=== PATIENT | male | born 1950 | race Caucasian/White ===

== ENCOUNTER 2020-06-08 08:11 | Outpatient (CLI) | payer MEDICARE, SELFPAY ==
[2020-06-08 08:46] LABS: Alanine Aminotransferase 20 U/L (4-50); Albumin Level 3.6 g/dL (3.5-5.1); Alkaline Phosphatase 85 U/L (38-126); Aspartate Amino Transferase 21 U/L (17-59); Bilirubin,Total 0.5 mg/dL (0.2-1.3); Blood Urea Nitrogen 19 mg/dL (9-20); Calcium 8.3 mg/dL (8.4-10.2); Carbon Dioxide 25 mmol/L (22-30); Chloride 104 mmol/L (98-107); Cholesterol 118 mg/dL (0-200); Estimated Glomerular Filt Rate > 60; Glucose 95 mg/dL (75-110); HDL Direct 34 mg/dL; Potassium 4.2 mmol/L (3.4-5.0); Sodium 137 mmol/L (137-145); Triglycerides 69 mg/dL (<150)
[2020-06-08 08:57] LABS: LDL Cholesterol Direct 60 mg/dL
== END 2020-06-08 08:12 | disposition home or self-care (01) ==
PROVIDERS: PCP Emergency Medicine; Visit Provider Emergency Medicine
DX: E78.5 Hyperlipidemia, unspecified (principal)
CPT/HCPCS: 36415; 80053; 80061

== ENCOUNTER 2020-11-06 07:45 | Outpatient (CLI) | payer MEDICARE, SELFPAY ==
[2020-11-06 08:33] LABS: Alanine Aminotransferase 21 U/L (4-50); Albumin Level 3.6 g/dL (3.5-5.1); Alkaline Phosphatase 78 U/L (38-126); Anion Gap 4 mmol/L (8-16); Aspartate Amino Transferase 21 U/L (17-59); Bilirubin,Total 0.4 mg/dL (0.2-1.3); Blood Urea Nitrogen 21 mg/dL (9-20); Calcium 8.7 mg/dL (8.4-10.2); Carbon Dioxide 30 mmol/L (22-30); Chloride 104 mmol/L (98-107); Cholesterol 120 mg/dL (0-200); Estimated Glomerular Filt Rate > 60; Glucose 97 mg/dL (75-110); HDL Direct 39 mg/dL; Potassium 4.2 mmol/L (3.4-5.0); Sodium 138 mmol/L (137-145); Triglycerides 57 mg/dL (<150)
[2020-11-06 08:44] LABS: LDL Cholesterol Direct 66 mg/dL
[2020-11-06 09:03] LABS: Prostate Specific Antigen 2.1 ng/mL (< OR = 4.0)
== END 2020-11-06 07:46 | disposition home or self-care (01) ==
PROVIDERS: PCP Emergency Medicine; Visit Provider Emergency Medicine
DX: E78.5 Hyperlipidemia, unspecified (principal); Z12.5 Encounter for screening for malignant neoplasm of prostate
CPT/HCPCS: 36415; 80053; 80061; 84153; G0103

== ENCOUNTER 2021-04-08 07:15 | Outpatient (CLI) | payer MEDICARE, SELFPAY ==
[2021-04-08 08:16] LABS: Alanine Aminotransferase 22 U/L (4-50); Albumin Level 3.7 g/dL (3.5-5.1); Alkaline Phosphatase 89 U/L (38-126); Anion Gap 5 mmol/L (8-16); Aspartate Amino Transferase 24 U/L (17-59); Bilirubin,Total 0.5 mg/dL (0.2-1.3); Blood Urea Nitrogen 19 mg/dL (9-20); Calcium 8.9 mg/dL (8.4-10.2); Carbon Dioxide 27 mmol/L (22-30); Chloride 105 mmol/L (98-107); Cholesterol 123 mg/dL (0-200); Estimated Glomerular Filt Rate 59; Glucose 89 mg/dL (75-110); HDL Direct 43 mg/dL; Potassium 3.8 mmol/L (3.4-5.0); Sodium 137 mmol/L (137-145); Triglycerides 67 mg/dL (<150)
[2021-04-08 08:26] LABS: LDL Cholesterol Direct 63 mg/dL
== END 2021-04-08 07:16 | disposition home or self-care (01) ==
LOC: ANHLAB 07:18
PROVIDERS: PCP Emergency Medicine; Visit Provider Emergency Medicine
DX: E78.5 Hyperlipidemia, unspecified (principal)
CPT/HCPCS: 36415; 80053; 80061

== ENCOUNTER 2021-08-18 08:19 | Outpatient (CLI) | payer MEDICARE, SELFPAY ==
[2021-08-18 09:18] LABS: Alanine Aminotransferase 21 U/L (4-50); Albumin Level 4.1 g/dL (3.5-5.1); Alkaline Phosphatase 100 U/L (38-126); Anion Gap 7 mmol/L (8-16); Aspartate Amino Transferase 22 U/L (17-59); Bilirubin,Total 0.6 mg/dL (0.2-1.3); Blood Urea Nitrogen 24 mg/dL (9-20); Carbon Dioxide 24 mmol/L (22-30); Chloride 105 mmol/L (98-107); Cholesterol 131 mg/dL (0-200); Estimated Glomerular Filt Rate > 60; Glucose 94 mg/dL (65-110); HDL Direct 44 mg/dL; Potassium 4.1 mmol/L (3.4-5.0); Sodium 136 mmol/L (137-145); Triglycerides 61 mg/dL (<150)
[2021-08-18 09:20] LABS: LDL Cholesterol Direct 71 mg/dL
[2021-08-18 09:35] LABS: Prostate Specific Antigen 1.9 ng/mL (< OR = 4.0)
== END 2021-08-18 08:20 | disposition home or self-care (01) ==
PROVIDERS: PCP Emergency Medicine; Visit Provider Emergency Medicine
DX: Z12.5 Encounter for screening for malignant neoplasm of prostate (principal); E78.5 Hyperlipidemia, unspecified
CPT/HCPCS: 36415; 80053; 80061; 84153; G0103

== ENCOUNTER 2021-08-26 11:22 | Outpatient (CLI) | payer MEDICARE, SELFPAY | END 2021-08-26 11:23 | disposition home or self-care (01) | PROVIDERS: PCP Emergency Medicine; Visit Provider Emergency Medicine | DX: R53.83 Other fatigue (principal) | CPT/HCPCS: 36415; 84443 ==

== ENCOUNTER 2021-09-29 18:48 | Emergency (ER) | payer MEDICARE, SELFPAY ==
[2021-09-29] VITALS (8 sets, daily range): BP systolic 109–165; BP diastolic 76–94; PULSE 122–142; RESP 20–25; TEMP 37.6; O2SAT 93–98
--- NOTE | ~2021-09-29 | XR_ITS ---
EXAMINATION: XR chest 1V portable EXAM DATE: 09/29/2021 19:39 INDICATION: SOB, Fever, Cough, HX TIA, HX IA. TECHNIQUE: Portable AP frontal chest x-ray was obtained. Comparison is made to prior examination from 10/22/2018. FINDINGS: The lungs are clear. There are no pleural effusions. The cardiomediastinal silhouette is within normal limits. There is no pneumothorax suspected. The bones and soft tissues are unremarkab le. IMPRESSION: No acute cardiopulmonary findings. Reviewed, dictated and finalized at location A. R OPERATOR
--- NOTE | ~2021-09-29 | CT_ITS ---
EXAMINATION: CTA chest PE protocol EXAM DATE: 09/29/2021 21:50 INDICATION: high d dimer and shortness of breath. TECHNIQUE: Spiral CTA of the chest (pulmonary arteries) was performed with 100 cc Omnipaque 350 intr avenous contrast injection. Images were acquired during the pulmonary arterial phase. Coronal maxi mum intensity projection 3D-reconstructions were created by the technologist on dedicated workstation . Axial, coronal and sagittal reformatted images were reviewed. The dose-length product (DLP) for t his examination was 792.45 mGy-cm. The exposure was tailored according to patient size (auto mA exp osure control), and iterative reconstruction (ASIR) was used as additional dose reduction technique. Comparison is made to prior examination from 10/01/2018. FINDINGS: There are no pulmonary emboli in the 1st through 3rd order (central and interlobar) pulmon bert arteries. Some loss of attenuation in the basilar segmental pulmonary from respiratory motion, t hese regions not confidently evaluated. No Intraluminal filling defects identified. No thoracic aor tic dissection. Previously seen scattered nodules have resolved, likely infectious. Small amount of left upper lobe groundglass airspace disease, nonspecific pneumonitis. There is moderate sliding carlos roesophageal hiatal hernia. There are no pleural or pericardial effusions. Tracheobronchial tree i s patent. There is no mediastinal, hilar or axillary lymphadenopathy. There is no pneumothorax. Heart normal in size. Possible left anterior descending coronary artery stent versus calcification . There is thoracic spondylosis without osteoblastic or osteolytic lesions identified. IMPRESSION: 1. Limited segmental evaluation, but no pulmonary emboli are suspected. 2. Small amount of nonspecific left upper lobe groundglass opacity, pneumonitis. 3. Moderate gastroesophageal hiatal hernia. Reviewed, dictated and finalized at location A. EL CUTTER IMPRESSION: 1. Limited segmental evaluation, but no pulmonary emboli are suspected. 2. Small amount of nonspecific left upper lobe groundglass opacity, pneumoniti s. 3. Moderate gastroesophageal hiatal hernia.
--- NOTE | 2021-09-29 19:04 | ECG_ITS ---
Measurements Intervals [place] Rate: 133 P: 38 MS: 149 QRS: 94 QRSD: 135 T: 0 QT: 307 QTc: 457 Interpretive Statements SINUS TACHYCARDIA RIGHT BUNDLE BRANCH BLOCK MINIMAL Q WAVES- INFERIOR LEADS BASELINE ARTIFACT- I, II, III AVR, AVF, V1-V6 ABNORMAL ECG Electronically Signed On 09-29-2021 20:15:42 POLICY CANCELLATION CLERK by Efraín Reese D.O.
[2021-09-29 19:52] LABS: Basophils Absolute Auto 0.1 K/mm3 (0.0-0.1); Basophils Percent Auto 0.7 % (0.2-1.2); Eosinophils Absolute Auto 0.2 K/mm3 (0-0.3); Eosinophils Percent Auto 2.1 % (0-4.4); Hematocrit 37.6 % (42.0-52.0); Hemoglobin 11.4 g/dL (14.0-18.0); Immature Granulocyte Absolute 0.03 K/mm3 (0.00-0.031); Immature Granulocyte Percent A 0.4 % (0-0.5); Immature Platelet Fraction Pct 7.1 % (0.9-11.2); Lymphocytes Absolute Auto 1.18 K/mm3 (0.9-3.2); Lymphocytes Percent Auto 13.8 % (18.3-44.2); Mean Corpuscular HGB Conc 30.3 g/dl (32-36); Mean Corpuscular Hemoglobin 21.8 pg (26-34); Mean Corpuscular Volume 71.8 fl (80-100); Mean Platelet Volume 11.5 fl (7.4-10.4); Monocytes Absolute Auto 0.9 K/mm3 (0.1-0.6); Monocytes Percent Auto 10.4 % (2.6-8.5); Neutrophils Absolute Auto 6.2 K/mm3 (1.3-6.7); Neutrophils Percent Auto 72.6 % (45.5-73.1); Platelet Count Result 227 k/mm3 (150-375); Red Blood Count 5.24 M/mm3 (4.6-6.20); Red Cell Distribution Width 18.2 % (11.5-14.5); White Blood Count 8.5 K/mm3 (4.5-10.0)
--- NOTE | 2021-09-29 19:58 | PC.NURSE ---
Pt placed on 2L O2 NC for pt comfort. O2 sat 96% at this time.
[2021-09-29 20:02] LABS: D Dimer 0.85 ug/mL (<0.48)
[2021-09-29 20:20] LABS: NT Pro B Type Natriuretic Pept 178 pg/mL (5-100)
[2021-09-29 20:26] LABS: Alanine Aminotransferase 28 U/L (4-50); Albumin Level 3.9 g/dL (3.5-5.1); Alkaline Phosphatase 99 U/L (38-126); Anion Gap 11 mmol/L (8-16); Aspartate Amino Transferase 39 U/L (17-59); Bilirubin,Total 0.4 mg/dL (0.2-1.3); Blood Urea Nitrogen 21 mg/dL (9-20); Calcium 8.2 mg/dL (8.4-10.2); Carbon Dioxide 20 mmol/L (22-30); Chloride 102 mmol/L (98-107); Estimated CRCL calculation 50 ml/min; Estimated Glomerular Filt Rate 59; Glucose 104 mg/dL (65-110); Sodium 133 mmol/L (137-145)
[2021-09-29] MEDS: methylPREDNISolone SOD SUCC 125 MG VIAL IV PUSH (21:07)
--- NOTE | 2021-09-29 21:08 | PC.NURSE ---
Pt taken off of O2 at this time.
--- NOTE | 2021-09-29 22:23 | ED.SOB ---
HPI - SOB/Dyspnea General Chief Complaint: Shortness of Breath/Dyspnea Stated Complaint: SOB Time Seen by Provider: 09/29/21 19:03 Source: patient Mode of arrival: ambulatory Limitations: no limitations History of Present Illness HPI Narrative: 71-year-old with a history of asthma, Crohn's here with complaints of cough shortness of breath since last few days. He states that he is scheduled to get a Covid screen done tomorrow but he states that he was unable to wait till tomorrow. He denies any fever he states he has been using his inhalers as prescribed. Cough is mostly productive at times and it is mucoid in nature. He denies any nausea or vomiting. Patient states that it started with a head cold and now it is going into his lungs MD elicited complaint: shortness of breath and cough Pertinent past history: asthma Onset (ago): day(s) (2) Timing: constant Severity: moderate Exacerbating factors: nothing Relieving factors: nothing Known history of: asthma Associated symptoms: sputum production (Mucoid) and chest congestion Related Data Home oxygen amount: none Home Medications Medication Instructions Recorded Confirmed atorvastatin 40 mg PO DAILY 10/05/19 08/25/21 metoprolol succinate 100 mg PO DAILY 10/05/19 08/25/21 cholecalciferol (vitamin D3) 25 1,000 unit PO DAILY tablet 06/09/20 08/25/21 mcg (1,000 unit) tablet nitroglycerin 0.4 mg sublingual 0.4 mg SUBLINGUAL Q5M PRN 04/21/21 08/25/21 tablet Allergies Allergy/AdvReac Type Severity Reaction Status Date / Time Sulfa (Sulfonamide Allergy Mild Hives Verified 08/25/21 13:33 Antibiotics) azathioprine Allergy Unknown Unknown Verified 08/25/21 13:33 sulfanilamide Allergy Unknown Unknown Verified 08/25/21 13:33 Review of Systems Review of Systems: All systems reviewed & are unremarkable except as noted in HPI and below Constitutional: Constitutional: Reports no additional constitutional complaints Eyes: Eyes: Reports no additional eye complaints ENT: Reports system reviewed and no additional complaints, except as documented Cardiovascular: Cardiovascular: Reports no additional cardiovascular complaints Respiratory: Respiratory: Reports as per HPI Gastrointestinal: Gastrointestinal: Reports no additional gastrointestinal complaints Musculoskeletal: Musculoskeletal: Reports no additional musculoskeletal complaints Integumentary/Breasts: Skin/Breast: Reports system reviewed and no additional complaints, except as docu Neurologic: Reports system reviewed and no additional complaints, except as documented Psychiatric: Psychiatric: Reports no additional psychiatric complaints PMFSH Past Medical History Medical History (Updated 09/29/21 @ 22:40 by Paco Galdamez MD) Epistaxis Hypercholesterolemia Kidney stones Myocardial infarction Sinusitis TIA (transient ischemic attack) Ulcerative colitis Surgical History Surgical History History of heart artery stent Family History Family History Mother Hypertension DVT (deep venous thrombosis) Father Hypertension Heart disease Social History Social History Smoking status: Never smoker Alcohol intake: never Gender identity (if verbalized by the patient): Male Exam Narrative: GENERAL: Well-appearing, well-nourished, and in no acute distress. HEAD: Normocephalic, atraumatic. EYES: PERRLA and EOMI. NECK: Supple. CHEST: Clear to auscultation. No respiratory distress. HEART: tachycardic . No murmur heard. Normal peripheral pulses. ABDOMEN: Soft, nontender, nondistended, normal active bowel sounds. EXTREMITIES: Normal range of motion. No edema. SKIN: Warm, dry, no rash. NEURO: No focal deficits. Alert and oriented x3. PSYCH: Normal mood and affect. Course Course Emergency Course: Inform patient about his lab work, CT.
[2021-09-29] MEDS: levoFLOXacin 500 MG TABLET PO (22:57)
[2021-09-29] MEDS: METOPROLOL TARTRATE 50 MG TAB PO (22:57)
[2021-09-30 00:20] VITALS: BP 108/69; PULSE 101; RESP 20; O2SAT 93
[2021-09-30 17:50] LABS: SARS-CoV-2 RNA PCR Positive
== END 2021-09-30 00:22 | disposition home or self-care (01) ==
PROVIDERS: Emergency Provider Family Medicine; PCP Emergency Medicine
DX: U07.1 COVID-19 (principal); J12.82 Pneumonia due to coronavirus disease 2019; E78.5 Hyperlipidemia, unspecified; I25.2 Old myocardial infarction
CPT/HCPCS: 36415; 71045; 71275; 80053; 83880; 85025; 85055; 85380; 87040; 93005; 96374; 99284; A9270; C9803; J2930; Q9967; U0003; U0005

== ENCOUNTER 2021-10-08 03:40 | Inpatient (IN) | payer MEDICARE, SELFPAY ==
[2021-10-08] VITALS (38 sets, daily range): BP systolic 127–159; BP diastolic 60–90; PULSE 66–120; RESP 18–34; TEMP 36.3–37.3; O2SAT 91–100; BMI 33.3
--- NOTE | ~2021-10-08 | CT_ITS ---
EXAMINATION: CTA chest PE protocol DATE: 10/08/2021 04:55 INDICATION: Hypoxia. Tachycardia. TECHNIQUE: Computed tomography angiography (CTA) of the chest was performed with 100 mL Omnipaque-350 intravenous contrast timed to evaluate the pulmonary arteries. Coronal maximum intensity projection 3D-reconstructions were created by the technologist. Automated exposure control and iterative reconst ruction technique were employed. Exam dose: 683.99 mGy-cm total exam DLP. COMPARISON: 09/29/2021 CT pulmonary scan FINDINGS: There is diagnostic contrast enhancement of the pulmonary arteries and no evidence of pulmo nary embolism. No thoracic aortic aneurysm or dissection. No hilar or mediastinal mass lesion or lymphadenopathy. Moderate sliding hiatal hernia. Heart size is within normal limits. No pericardial or pleural effusion. There is extensive patchy groundglass infiltrate throughout all lobes of both lungs, likely due to Co vid pneumonia. Included upper abdominal structures are unremarkable. Chronic ununited fracture of the posterolateral aspect of the right eighth rib. Degenerative spurring of the thoracic spine. No suspicious osteolytic or osteoblastic lesions. IMPRESSION: Extensive patchy groundglass infiltrates throughout both lungs, likely due to Covid pneu monia No evidence of pulmonary embolism Moderate-sized hiatal hernia Reviewed, dictated and finalized at Location [facility]. Reviewed, dictated and finalized at location A. LE TENDER IMPRESSION: Extensive patchy groundglass infiltrates throughout both lungs, li clyde due to Covid pneumonia No evidence of pulmonary embolism Moderate-sized hiatal hernia
--- NOTE | ~2021-10-08 | CT_ITS ---
EXAMINATION: CTA chest PE protocol EXAM DATE: 10/12/2021 11:23 INDICATION: Chest pain. COVID pneumonia. Right lower chest pain. Hypoxia. D-dimer elevated. TECHNIQUE: Spiral CTA of the chest (pulmonary arteries) was performed with 100 cc Omnipaque 350 intr avenous contrast injection. Images were acquired during the pulmonary arterial phase. Coronal maxi mum intensity projection 3D-reconstructions were created by the technologist on dedicated workstation . Axial, coronal and sagittal reformatted images were reviewed. The dose-length product (DLP) for t his examination was 488.48 mGy-cm. The exposure was tailored according to patient size (auto mA exp osure control), and iterative reconstruction (ASIR) was used as additional dose reduction technique. Comparison is made to prior examination from 10/08/2021. FINDINGS: Interval development of right lower lobe posterior segmental pulmonary embolism. No larger emboli. Low clot burden. No thoracic aortic dissection. There is similar distribution of moderate amount bilateral groundglass airspace disease, with develop ing small regions of associated linear scarring/atelectasis. These findings are consistent with trans ition from acute to early subacute stage of COVID pneumonia. There are no pleural or pericardial effusions. Tracheobronchial tree is patent. There is no media stinal, hilar or axillary lymphadenopathy. There is no pneumothorax. Heart normal in size. Prob able left anterior descending coronary artery stent. There is moderate sliding gastroesophageal hiata l hernia. There is thoracic spondylosis without osteoblastic or osteolytic lesions identified. IMPRESSION: 1. Interval development of segmental right lower lobe pulmonary embolism, low clot burden. 2. Moderate amount of COVID pneumonia, scope of lung involvement stable. 3. Moderate hiatal hernia. I discussed pulmonary embolism, pneumonia with Mehran Carlson MD at 10/12/2021 11:49 CONTROL VALVE MECHANIC. Reviewed, dictated and finalized at location A. ROL VALVE MECHANIC IMPRESSION: 1. Interval development of segmental right lower lobe pulmonary embolism, low clot burden. 2. Moderate amount of COVID pneumonia, scope of lung involvement stable. 3. Moderate hiatal hernia. I discussed pulmonary embolism, pneumonia with Mehran Carlson MD at 021 11:49 CONTROL VALVE MECHANIC.
--- NOTE | ~2021-10-08 | US_ITS ---
EXAMINATION: US venous doppler [facility] DATE: 10/11/2021 15:08 INDICATION: Chest pain. TECHNIQUE: Grayscale ultrasound images without and with compression and Doppler ultrasound images of the bilateral lower extremity veins were obtained. COMPARISON: None. FINDINGS: The visualized portions of right common femoral vein, profunda (deep) femoral vein, femoral vein, pop liteal vein, peroneal veins, posterior tibial veins, and greater saphenous vein outflow are patent. T here is thrombus in right soleus vein. The visualized portions of left common femoral vein, profunda femoral vein, femoral vein, popliteal v ein, peroneal veins, posterior tibial veins, and greater saphenous vein outflow are patent. IMPRESSION: 1. Deep vein thrombosis involving right soleus vein. Reviewed, dictated and finalized at location B. EN TANK FILLER
--- NOTE | ~2021-10-08 | XR_ITS ---
EXAMINATION: XR chest 1V portable EXAM DATE: 10/11/2021 09:46 INDICATION: Pneumonia COVID, worsening cough and chest pain. TECHNIQUE: Portable AP frontal chest x-ray was obtained. Comparison is made to prior examination from 09/29/2021. FINDINGS: There is moderate amount of bilateral peripheral predominant airspace disease which is ill- defined, but with small regions of confluence. Appearance is consistent with subacute COVID pneumonia . There is no pneumothorax suspected. There are no pleural effusions. The cardiomediastinal silhouett e is prominent but magnified on this AP technique. There are mild bony degenerative changes. IMPRESSION: Moderate amount of COVID pneumonia. Reviewed, dictated and finalized at location A. [employer]
--- NOTE | 2021-10-08 03:50 | ECG_ITS ---
Measurements Intervals [place] Rate: 117 P: [place]: 0 QRS: 91 QRSD: 141 T: -3 QT: 350 QTc: 489 Interpretive Statements SINUS TACHYCARDIA RIGHT BUNDLE BRANCH BLOCK MINIMAL Q WAVES- INFERIOR LEADS ABNORMAL ECG Electronically Signed On 10-08-2021 6:26:20 LARD MAKER by Efraín Reese D.O.
--- NOTE | 2021-10-08 03:53 | ED.SOB ---
HPI - SOB/Dyspnea General Chief Complaint: Shortness of Breath/Dyspnea Stated Complaint: SOB, Covid + Time Seen by Provider: 10/08/21 03:44 Source: patient History of Present Illness HPI Narrative: Patient presents with shortness of breath. Reports he was recently diagnosed with Covid approximately 1 week ago. He has had persistent cough and shortness of breath is felt worse this evening so he came to the ER for evaluation. Reports fevers diffuse body aches. Reports he is coughing up sputum. He also reports nausea and vomiting. Reports he was sent home on antibiotics but they do not appear to be helping. Related Data Home Medications Medication Instructions Recorded Confirmed atorvastatin 40 mg PO DAILY 10/05/19 08/25/21 metoprolol succinate 100 mg PO DAILY 10/05/19 08/25/21 cholecalciferol (vitamin D3) 25 1,000 unit PO DAILY tablet 06/09/20 08/25/21 mcg (1,000 unit) tablet nitroglycerin 0.4 mg sublingual 0.4 mg SUBLINGUAL Q5M PRN 04/21/21 08/25/21 tablet Allergies Allergy/AdvReac Type Severity Reaction Status Date / Time Sulfa (Sulfonamide Allergy Mild Hives Verified 08/25/21 13:33 Antibiotics) azathioprine Allergy Unknown Unknown Verified 08/25/21 13:33 sulfanilamide Allergy Unknown Unknown Verified 08/25/21 13:33 Review of Systems Review of Systems: CONSTITUTIONAL: Reports fevers and chills EYES: Denies visual changes, redness, or discharge. ENT: Denies rhinorrhea, congestion, sore throat, or otalgia. CARDIOVASCULAR: Denies chest pain, palpitations, or edema. RESPIRATORY: Reports shortness of breath and cough. GASTROINTESTINAL: Denies abdominal pain,or diarrhea. GENITOURINARY: Denies dysuria or hematuria. SKIN: Denies rash or itching. MUSCULOSKELETAL: Denies back pain, joint pain. NEUROLOGIC: Denies headache, numbness, dizziness, or weakness. PSYCHIATRIC: Denies anxiety or depression. All systems reviewed & are unremarkable except as noted in HPI and below PMFSH Past Medical History Medical History (Updated 10/08/21 @ 05:54 by Nick Lewis MD) Epistaxis Hypercholesterolemia Kidney stones Myocardial infarction Sinusitis TIA (transient ischemic attack) Ulcerative colitis Surgical History Surgical History History of heart artery stent Family History Family History Mother Hypertension DVT (deep venous thrombosis) Father Hypertension Heart disease Social History Social History Smoking status: Never smoker Alcohol intake: never Gender identity (if verbalized by the patient): Male Exam Narrative: GENERAL: Well-appearing, well-nourished, and in no acute distress. HEAD: Normocephalic, atraumatic. EYES: PERRLA and EOMI. ENT: Nares clear, no rhinorrhea or epistaxis. Mucous membranes moist. NECK: Supple. No masses. No JVD CHEST: Clear to auscultation. No respiratory distress. No wheezes rales or rhonchi HEART: Regular regular tachycardia. No murmur heard. Normal peripheral pulses. ABDOMEN: Soft, nontender, nondistended, normal active bowel sounds. EXTREMITIES: Normal range of motion. No edema. SKIN: Warm, dry, no rash. NEURO: No focal deficits. Alert and oriented x3. PSYCH: Normal mood and affect. Course Reevaluation(s) Reevaluation #1: Patient resting comfortably on [address] scan returned with Covid pneumonia labs notable for hyponatremia patient be admitted for further management Date: 10/08/21 Time: 05:51 Vital Signs Vital signs: Vital Signs Temperature 37.3 C 10/08/21 03:43 Pulse Rate 120 H 10/08/21 03:43 Respiratory Rate 27 H 10/08/21 03:43 Blood Pressure 148/77 H 10/08/21 03:43 Pulse Oximetry 96 10/08/21 03:43 Temperature 37.3 C 10/08/21 03:43 Pulse Rate 109 H 10/08/21 06:31 Respiratory Rate 25 H 10/08/21 06:31 Blood Pressure 143/87 H 10/08/21 06:31 Pulse O
[2021-10-08] MEDS: SODIUM CHLORIDE 0.9% IV 1,000 ML 999 ML IV CONT (04:05)
[2021-10-08 04:15] LABS: Lactic Acid Reflex 1.9 mmol/L (0.7-2.1)
[2021-10-08 04:27] LABS: Basophils Percent Auto 0.1 % (0.2-1.2); Eosinophils Percent Auto 0.1 % (0-4.4); Hematocrit 37.5 % (42.0-52.0); Hemoglobin 12.1 g/dL (14.0-18.0); Immature Granulocyte Absolute 0.03 K/mm3 (0.00-0.031); Immature Granulocyte Percent A 0.3 % (0-0.5); Immature Platelet Fraction Pct 10.1 % (0.9-11.2); Lymphocytes Absolute Auto 0.92 K/mm3 (0.9-3.2); Lymphocytes Percent Auto 9.7 % (18.3-44.2); Mean Corpuscular HGB Conc 32.3 g/dl (32-36); Mean Corpuscular Volume 68.1 fl (80-100); Monocytes Absolute Auto 0.1 K/mm3 (0.1-0.6); Monocytes Percent Auto 1.1 % (2.6-8.5); Neutrophils Absolute Auto 8.4 K/mm3 (1.3-6.7); Neutrophils Percent Auto 88.7 % (45.5-73.1); Platelet Count Result 231 k/mm3 (150-375); Red Blood Count 5.51 M/mm3 (4.6-6.20); Red Cell Distribution Width 18.2 % (11.5-14.5); White Blood Count 9.5 K/mm3 (4.5-10.0)
[2021-10-08 04:38] LABS: Alanine Aminotransferase 59 U/L (4-50); Albumin Level 3.3 g/dL (3.5-5.1); Alkaline Phosphatase 107 U/L (38-126); Anion Gap 10 mmol/L (8-16); Aspartate Amino Transferase 121 U/L (17-59); Blood Urea Nitrogen 12 mg/dL (9-20); Calcium 8.1 mg/dL (8.4-10.2); Carbon Dioxide 24 mmol/L (22-30); Chloride 85 mmol/L (98-107); Estimated CRCL calculation 53 ml/min; Estimated Glomerular Filt Rate > 60; Glucose 101 mg/dL (65-110); Potassium 3.7 mmol/L (3.4-5.0); Sodium 119 mmol/L (137-145)
[2021-10-08 04:49] LABS: Platelet Estimate Adequate (Adequate)
[2021-10-08 04:50] LABS: Microcytosis 1+ (NORMAL); Ovalocytes 1+ (NORMAL)
[2021-10-08 05:36] LABS: Add Urine Microscopic? YES; Appearance Urine Clear (Clear); Bilirubin Urine Negative (Negative); Blood Urine 1+ (Negative); Color Urine Yellow (Yellow); Glucose Urine UA Negative (Negative); Ketones Urine 1+ mg/dL (Negative); Leukocyte Esterase Ur Negative LEU/UL (Negative); Nitrate Urine Negative (Negative); Protein Urine 1+ mg/dL (Negative); RBC Urine 0-2 /hpf (0-2); Specific Grav Ur 1.029 (1.001-1.035); Urobilinogen Urine Negative mg/dL (<2.0); WBC Urine 0-3 /hpf
[2021-10-08 05:51] LABS: Sodium Urine Random 10 meq/L
[2021-10-08] MEDS: REMDESIVIR 200 MG/NS 250 ML 200 MG/250 ML BAG 250 MG IVPB (07:02)
[2021-10-08] MEDS: ONDANSETRON INJ 4 MG/2 ML VIAL IV PUSH ×2 (07:06→21:25)
--- NOTE | 2021-10-08 07:15 | PC.NURSE ---
Previous RN called report and has transport taking pt up after shift change, vitals were updated, pt has no acute distress at this time
--- NOTE | 2021-10-08 08:00 | ADMGEN ---
This patient, Arvind Pruett, was admitted to [facility] S[facility] Room 319-01 at 0750. Patient/family oriented to hospital policies and general routines including ID bracelet, bed and alarms, visiting hours, pain management, procedures, bathroom and other care routines, personal items, smoking policy, room service/diet, and visiting hours. Information on how to activate the Rapid Response Team has been discussed. Patient/Family are encouraged to report perceived risks to care and to ask questions if they do not understand what they are told or what they should do.
[2021-10-08 09:16] LABS: Sodium 124 mmol/L (137-145)
[2021-10-08 09:27] LABS: Alanine Aminotransferase 54 U/L (4-50); Albumin Level 3.1 g/dL (3.5-5.1); Alkaline Phosphatase 89 U/L (38-126); Anion Gap 8 mmol/L (8-16); Aspartate Amino Transferase 98 U/L (17-59); Bilirubin,Total 0.9 mg/dL (0.2-1.3); Blood Urea Nitrogen 11 mg/dL (9-20); Calcium 7.3 mg/dL (8.4-10.2); Carbon Dioxide 22 mmol/L (22-30); Chloride 89 mmol/L (98-107); Estimated CRCL calculation 64 ml/min; Estimated Glomerular Filt Rate > 60; Glucose 106 mg/dL (65-110); Potassium 3.6 mmol/L (3.4-5.0); Sodium 119 mmol/L (137-145)
--- NOTE | 2021-10-08 11:37 | ECG_ITS ---
Measurements Intervals [place] Rate: 89 P: 21 PA: 173 QRS: 48 QRSD: 147 T: 25 QT: 395 QTc: 483 Interpretive Statements SINUS RHYTHM RIGHT BUNDLE BRANCH BLOCK BASELINE ARTIFACT- I, III, AVR, AVL, AVF ABNORMAL ECG Electronically Signed On 10-08-2021 13:06:19 BIOMASS POWER PLANT MANAGER by Efraín Reese D.O.
--- NOTE | 2021-10-08 11:48 | PM.IMHP ---
H&P: HPI History of Present Illness Date/Time: 10/08/21 11:48 Chief Complaint: 10/08/21 Narrative: 71yo male with Asthma, CAD, ulcerative colitis on immunosuppressive agents and TIA here for worsening SOB from COVID PNA. Patient is unvaccinated. He is 'foggy' and having 'trouble remembering' since becoming ill with COVID. He is AOx4 but hx is difficult to obtain with limited details. Patient presented to the emergency room on 09/29/2021 with a 2 day history of cough and shortness of breath. Chest CTA showed no pulmonary emboli but did show small amount of nonspecific ground-glass opacities possibly pneumonitis. He was treated with Levaquin x 7 days. His rapid COVID swab returned positive. Patient was discharged home. He completed the antibiotics. His condition however continued to worsen. He denies any sore throat or chills but has been having subjective fevers, myalgias, nausea and vomiting. He is also having cough productive of thick yellowish sputum. No anosmia and dysgeusia. He has been diffusely weak to the point where he is unable to leave his house to refill his medications. He ran out of his medications about a week ago. He has had poor oral intake over the past week as well. He does have ulcerative colitis and takes Humira for this. He denies any diarrhea, melena, hematochezia or abdominal pain. Currently he is complaining of ?acid indigestion? they describes as a burning sensation and an acid taste in his mouth. He takes Prilosec daily but has been out of that medication for the past week. This pain feels different than the chest discomfort he had a few years ago when he had his myocardial infarction. Because of the worsening symptoms, patient presented to the emergency room for evaluation. In the emergency room, patient was hemodynamics stable. He was tachycardic with rate of 120. He has been out of his beta-dinh for a week. CTA of the chest shows extensive patchy ground-glass infiltrates throughout both lungs but no evidence of PE. He has a moderate size hiatal hernia. Hemoglobin was 12 but does have chronic microcytic anemia. D-dimer was elevated 0.85. Sodium was 119 with AST 121 ALT 59. Urinalysis shows 1+ ketones with urine sodium of 10. Patient was given Decadron, remdesivir and IV fluids. He was admitted for further care. Review of Systems Review of Systems: All systems reviewed & are unremarkable except as noted in HPI and below PMFSH Past Medical History Medical History (Updated 10/08/21 @ 12:12 by Mehran Carlson MD) Asthma CAD (coronary artery disease) stent placed in Oct 2018 to the prox LAD GERD (gastroesophageal reflux disease) HTN (hypertension) Hypercholesterolemia Kidney stones Myocardial infarction TIA (transient ischemic attack) Ulcerative colitis Surgical History Surgical History History of heart artery stent Hx of sinus surgery Family History Family History Mother Hypertension DVT (deep venous thrombosis) Father Hypertension Heart disease Social History Social History (Updated 10/08/21 @ 12:08 by Mehran Carlson MD) Social History: Lives alone. . No children. Denies alcohol or drug use. He is a lifelong nonsmoker. He is a full code. He nominated Batsheva Paz to be the individual would be making decisions for him if he is unable. Smoking status: Never smoker Alcohol intake: never Substance use: never Gender identity (if verbalized by the patient): Male Spiritual care concerns: No Meds Home Medications and Allergies Home Medications Medication Instructions Recorded Confirmed Type atorvastatin 40 mg PO DAILY 10/05/19 10/08/21 History metoprolol succinate 100 mg PO DAILY 10/05/19 10/08/21 History fluticasone propionate 50 See Rx Instructions .ROUTE 12/14/20 10/08/21 Rx mcg/actuation nasal .COMPLEX #48 ml spray,suspens
[2021-10-08] MEDS: CALCIUM CARBONATE (TUMS) 500 MG (200 MG ELEMENTAL) PO (12:20)
[2021-10-08 13:20] LABS: Sodium 120 mmol/L (137-145)
[2021-10-08 13:31] LABS: Lactate Dehydrogenase 1552 U/L (313-618)
[2021-10-08 13:34] LABS: Troponin I < 0.012 ng/mL (0.000-0.034)
[2021-10-08 13:36] LABS: Iron < 10 ug/dL (49-181)
[2021-10-08 13:41] LABS: D Dimer 0.19 ug/mL (<0.48)
[2021-10-08 13:47] LABS: Percent Iron Saturation < 4 % (20-50)
[2021-10-08 13:52] LABS: CRP 18.3 mg/dL (<1.0)
[2021-10-08 14:09] LABS: Thyroid Stimulating Hormone Reflex 0.785 uIU/mL (0.465-4.68)
[2021-10-08] MEDS: ENOXAPARIN 40 MG/0.4 ML SYRINGE SUB-Q (16:02)
[2021-10-08] MEDS: PANTOPRAZOLE SODIUM IV 40 MG VIAL IV PUSH ×2 (16:02→21:21)
[2021-10-08] MEDS: METOPROLOL SUCCINATE EXT REL 100 MG TABCR PO (16:03)
[2021-10-08 17:19] LABS: Sodium 124 mmol/L (137-145)
[2021-10-08] MEDS: FLUTICASONE PROPIONATE 0.05% NA SPR 16 GM BTL (*BKC) 2 SPRAY NASAL (19:00)
[2021-10-08] MEDS: SODIUM CHLORIDE 0.9% IV 1,000 ML 100 ML IV CONT (19:00)
[2021-10-08] MEDS: FLUTICASONE/SALMETEROL 115-21 MCG (*SP) INHALER 2 PUFF INHALATION (20:43)
[2021-10-08] MEDS: ALBUTEROL SULFATE (*SP) INHALER 2 PUFF INHALATION (20:43)
[2021-10-08 21:11] LABS: Sodium 122 mmol/L (137-145)
[2021-10-08 22:13] LABS: Anion Gap 10 mmol/L (8-16); Blood Urea Nitrogen 13 mg/dL (9-20); Carbon Dioxide 22 mmol/L (22-30); Chloride 92 mmol/L (98-107); Estimated CRCL calculation 64 ml/min; Estimated Glomerular Filt Rate > 60; Glucose 172 mg/dL (65-110); Potassium 3.8 mmol/L (3.4-5.0); Sodium 124 mmol/L (137-145)
[2021-10-09] VITALS (13 sets, daily range): BP systolic 120–142; BP diastolic 69–92; PULSE 83–97; RESP 18–24; TEMP 36.4–37; O2SAT 92–98
[2021-10-09] MEDS: SODIUM CHLORIDE 0.9% IV 250 ML 30 ML IV CONT (00:45)
[2021-10-09 01:16] LABS: Sodium 123 mmol/L (137-145)
[2021-10-09] MEDS: ALBUTEROL SULFATE (*SP) INHALER 2 PUFF INHALATION ×4 (01:50→19:59)
[2021-10-09 07:51] LABS: Basophils Percent Auto 0.1 % (0.2-1.2); Hematocrit 32.4 % (42.0-52.0); Hemoglobin 10.3 g/dL (14.0-18.0); Immature Granulocyte Absolute 0.06 K/mm3 (0.00-0.031); Immature Granulocyte Percent A 0.6 % (0-0.5); Immature Platelet Fraction Pct 7.9 % (0.9-11.2); Lymphocytes Absolute Auto 0.38 K/mm3 (0.9-3.2); Lymphocytes Percent Auto 3.6 % (18.3-44.2); Mean Corpuscular HGB Conc 31.8 g/dl (32-36); Mean Corpuscular Hemoglobin 21.7 pg (26-34); Mean Corpuscular Volume 68.4 fl (80-100); Monocytes Absolute Auto 0.1 K/mm3 (0.1-0.6); Neutrophils Absolute Auto 9.9 K/mm3 (1.3-6.7); Neutrophils Percent Auto 94.7 % (45.5-73.1); Platelet Count Result 211 k/mm3 (150-375); Red Blood Count 4.74 M/mm3 (4.6-6.20); Red Cell Distribution Width 17.4 % (11.5-14.5); White Blood Count 10.4 K/mm3 (4.5-10.0)
[2021-10-09 07:58] LABS: INR 1.1; Prothrombin Time 14.1 Seconds (11.1-14.7)
[2021-10-09 08:08] LABS: Alanine Aminotransferase 54 U/L (4-50); Alkaline Phosphatase 89 U/L (38-126); Anion Gap 4 mmol/L (8-16); Aspartate Amino Transferase 76 U/L (17-59); Bilirubin,Total 0.6 mg/dL (0.2-1.3); Blood Urea Nitrogen 15 mg/dL (9-20); Calcium 7.8 mg/dL (8.4-10.2); Carbon Dioxide 24 mmol/L (22-30); Chloride 97 mmol/L (98-107); Estimated CRCL calculation 64 ml/min; Estimated Glomerular Filt Rate > 60; Glucose 133 mg/dL (65-110); Lactate Dehydrogenase 1372 U/L (313-618); Magnesium 2.2 mg/dL (1.6-2.3); Phosphorus 2.9 mg/dL (2.5-4.5); Potassium 3.4 mmol/L (3.4-5.0); Sodium 125 mmol/L (137-145)
[2021-10-09] MEDS: METOPROLOL SUCCINATE EXT REL 100 MG TABCR PO (08:27)
[2021-10-09] MEDS: ASPIRIN 81 MG CHEWABLE TABLET PO (08:27)
[2021-10-09 08:32] LABS: Cortisol Baseline 4.08 ug/dL
[2021-10-09] MEDS: FLUTICASONE/SALMETEROL 115-21 MCG (*SP) INHALER 2 PUFF INHALATION ×2 (08:53→19:59)
[2021-10-09 09:46] LABS: Platelet Estimate Adequate (Adequate)
[2021-10-09 09:47] LABS: Burr Cells 2+ (NORMAL); Ovalocytes 1+ (NORMAL)
[2021-10-09 09:48] LABS: Poikilocytosis 1+ (NORMAL)
--- NOTE | 2021-10-09 09:50 | PM.IMPN ---
Progress Note: A&P Assessment and Plan (1) Acute respiratory failure with hypoxia: Code(s): J96.01 - Acute respiratory failure with hypoxia Status: Acute Assessment and Plan: Patient admitted with increasing shortness of breath cough after recently being diagnosed with COVID pneumonia on 09/29/2021. Patient is about 12 days out from the start of his symptoms. CTA of the chest reviewed showing diffuse lung disease consistent with COVID pneumonia. Oxygen requirement has increased since admission. Continue supportive care. Treatment as below. Wean oxygen as tolerated. Resume albuterol HFA but will schedule this. (2) Pneumonia due to COVID-19 virus: Code(s): U07.1 - COVID-19; J12.82 - Pneumonia due to coronavirus disease 2019 Status: Acute Assessment and Plan: Patient has been admitted to the medical unit. Oxygen requirement is increasing. Remdesivir and dexamethasone were appropriately started. Given his immunosuppressive condition, there is some data is to suggest that there is improvement with convalescent plasma. Spoke with patient about the risks and benefits and he is agreeable to proceed and as such convalescent plasma was ordered. Ferritin was 197. C reactive protein was 18. We will consult pulmonary in consideration for Tocilizumab. Wean oxygen as tolerated. Continue supportive care. (3) Hyponatremia: Code(s): E87.1 - Hypo-osmolality and hyponatremia Status: Acute Assessment and Plan: Plasma sodium 119 on admission. Serum sodium is improving slowly up to 125 today. Urine sodium 10 with FENA at 0.07%. This suggests dehydration from his nausea and vomiting and poor oral intake. Urine ketones are elevated which goes along with this diagnosis. Despite this would consider hypernatremia related to his current lung disease. He received a 1L of fluid in the ER. Will track urine sodium for now and not intervene at this time. Avoid over correction to prevent demyelinating disease. His ?foggy? mentation may be related to the hyponatremia although he is oriented x4. Continue close observation of sodium and treat accordingly. We may need to give him does more present and/or free water if his sodium over corrects too quickly. TSH and cortisol level are within acceptable range. (4) HTN (hypertension): Qualifiers: Hypertension type: unspecified Qualified Code(s): I10 - Essential (primary) hypertension Code(s): I10 - Essential (primary) hypertension Status: Acute Assessment and Plan: Blood pressure reviewed as well controlled since he has been hospitalized. On today's date, BP has been 127/75-142/83. Continue metoprolol which should help his tachycardia. Continue to monitor. (5) GERD (gastroesophageal reflux disease): Code(s): K21.9 - Gastro-esophageal reflux disease without esophagitis Status: Acute Assessment and Plan: Patient reports classic acid reflux symtoms. There was no substantial clinical improvement despite protonix scheduled and Tums p.r.n.THere is no troponin elevation; EKG is unremarkable. We will add carafate to his GI regimen. (6) Asthma: Code(s): J45.909 - Unspecified asthma, uncomplicated Status: Acute Assessment and Plan: No wheezing. Continue albuterol HFA scheduled. (7) CAD (coronary artery disease): Code(s): I25.10 - Atherosclerotic heart disease of [place] coronary artery without angina pectoris Status: Acute Assessment and Plan: Patient has history of coronary disease. Will resume his metoprolol and aspirin. Will hold his Lipitor given the mildly elevated LFTs but suspect this will come down. Elevated liver enzymes related to the COVID pneumonia. (8) Ulcerative colitis: Code(s): K51.90 - Ulcerative colitis, unspecified, without complications Status: Acute Assessment and Plan: Patient has a history of ulcerative colitis on
[2021-10-09] MEDS: ENOXAPARIN 40 MG/0.4 ML SYRINGE SUB-Q (10:07)
[2021-10-09] MEDS: FLUTICASONE PROPIONATE 0.05% NA SPR 16 GM BTL (*BKC) 2 SPRAY NASAL (10:07)
[2021-10-09] MEDS: guaiFENesin/DEXTROMETHORPHAN 10 ML UDC PO ×2 (10:07→14:03)
[2021-10-09] MEDS: REMDESIVIR 100 MG/NS 250 ML 100 MG/250 ML BAG 250 MG IVPB (11:28)
[2021-10-09] MEDS: PANTOPRAZOLE SODIUM IV 40 MG VIAL IV PUSH ×2 (11:50→21:36)
[2021-10-09] MEDS: SUCRALFATE SUSP 100 MG/ML 10 ML UDC 1000 MG PO ×2 (15:22→21:36)
[2021-10-10] VITALS (12 sets, daily range): BP systolic 123–155; BP diastolic 73–90; PULSE 81–107; RESP 18–24; TEMP 36.3–36.9; O2SAT 93–96
[2021-10-10] MEDS: guaiFENesin/DEXTROMETHORPHAN 10 ML UDC PO ×2 (00:44→12:54)
--- NOTE | 2021-10-10 04:15 | PCRCNOTE ---
RT not available due to emergency to administer 02:00 albuterol inhaler to pt.
[2021-10-10] MEDS: SUCRALFATE SUSP 100 MG/ML 10 ML UDC 1000 MG PO ×4 (06:32→20:52)
[2021-10-10 07:01] LABS: INR 1.1; Prothrombin Time 13.6 Seconds (11.1-14.7)
[2021-10-10 07:19] LABS: Alanine Aminotransferase 54 U/L (4-50); Estimated CRCL calculation 64 ml/min; Estimated Glomerular Filt Rate > 60
[2021-10-10] MEDS: ENOXAPARIN 40 MG/0.4 ML SYRINGE SUB-Q (08:14)
[2021-10-10] MEDS: PANTOPRAZOLE SODIUM IV 40 MG VIAL IV PUSH ×2 (08:15→20:52)
[2021-10-10] MEDS: METOPROLOL SUCCINATE EXT REL 100 MG TABCR PO (08:15)
[2021-10-10] MEDS: ASPIRIN 81 MG CHEWABLE TABLET PO (08:15)
[2021-10-10] MEDS: FLUTICASONE PROPIONATE 0.05% NA SPR 16 GM BTL (*BKC) 2 SPRAY NASAL ×2 (08:15→20:52)
[2021-10-10] MEDS: FERROUS GLUCONATE 324 MG TABLET PO (08:16)
[2021-10-10] MEDS: ALBUTEROL SULFATE (*SP) INHALER 2 PUFF INHALATION ×3 (08:22→21:36)
[2021-10-10] MEDS: FLUTICASONE/SALMETEROL 115-21 MCG (*SP) INHALER 2 PUFF INHALATION ×2 (10:04→21:36)
[2021-10-10] MEDS: REMDESIVIR 100 MG/NS 250 ML 100 MG/250 ML BAG 250 MG IVPB (10:04)
--- NOTE | 2021-10-10 11:30 | PM.IMPN ---
Progress Note: A&P Assessment and Plan (1) Acute respiratory failure with hypoxia: Code(s): J96.01 - Acute respiratory failure with hypoxia Status: Acute Assessment and Plan: Patient admitted with increasing shortness of breath cough after recently being diagnosed with COVID pneumonia on 09/29/2021. Patient remains on 4 L, but looks a little better as his cough is improving. Oral intake is improving after symptomatic relief of GERD symptoms with carafate. Patient is about 13 days out from the start of his symptoms. CTA of the chest reviewed showing diffuse lung disease consistent with COVID pneumonia. Oxygen requirement has increased since admission. Continue supportive care. Treatment as below. Wean oxygen as tolerated. Continue albuterol HFA. (2) Pneumonia due to COVID-19 virus: Code(s): U07.1 - COVID-19; J12.82 - Pneumonia due to coronavirus disease 2019 Status: Acute Assessment and Plan: Patient has been admitted to the medical unit. Oxygen requirement is increasing, now plateaued at 4 L. Remdesivir and dexamethasone were appropriately started. Given his immunosuppressive condition, there is some data is to suggest that there is improvement with convalescent plasma. Spoke with patient about the risks and benefits and he is agreeable to proceed and as such convalescent plasma was ordered. Ferritin was 197. C reactive protein was 18. We will consult pulmonary in consideration for Tocilizumab. Wean oxygen as tolerated. Continue supportive care. (3) Hyponatremia: Code(s): E87.1 - Hypo-osmolality and hyponatremia Status: Acute Assessment and Plan: Plasma sodium 119 on admission. Serum sodium is improving slowly up to 131 today. Urine sodium 10 with FENA at 0.07%. This suggests dehydration from his nausea and vomiting and poor oral intake. Urine ketones are elevated which goes along with this diagnosis. Despite this would consider hypernatremia related to his current lung disease. He received a 1L of fluid in the ER. Will track urine sodium for now and not intervene at this time. Patient mentation has improved back to baseline. Continue close observation of sodium and treat accordingly. TSH and cortisol level are within acceptable range. (4) HTN (hypertension): Qualifiers: Hypertension type: unspecified Qualified Code(s): I10 - Essential (primary) hypertension Code(s): I10 - Essential (primary) hypertension Status: Acute Assessment and Plan: Blood pressure reviewed as well controlled since he has been hospitalized. On today's date, BP has been in the 123/77-149/79 range. Continue metoprolol which should help his tachycardia. Continue to monitor. (5) GERD (gastroesophageal reflux disease): Code(s): K21.9 - Gastro-esophageal reflux disease without esophagitis Status: Acute Assessment and Plan: Patient reports classic acid reflux symtoms. There was no substantial clinical improvement despite protonix scheduled and Tums p.r.n.THere is no troponin elevation; EKG is unremarkable. Patient has improved symptomatically after the addition of Carafate to his GI regimen. (6) Asthma: Code(s): J45.909 - Unspecified asthma, uncomplicated Status: Acute Assessment and Plan: No wheezing. Continue albuterol HFA scheduled. (7) CAD (coronary artery disease): Code(s): I25.10 - Atherosclerotic heart disease of [place] coronary artery without angina pectoris Status: Acute Assessment and Plan: Patient has history of coronary disease. Will resume his metoprolol and aspirin. Will hold his Lipitor given the mildly elevated LFTs but suspect this will come down. Elevated liver enzymes related to the COVID pneumonia. (8) Ulcerative colitis: Code(s): K51.90 - Ulcerative colitis, unspecified, without complications Status: Acute Assessment and Plan: Patient has a hi
[2021-10-10] MEDS: BENZONATATE 100 MG CAPSULE 200 MG PO ×2 (12:54→16:49)
[2021-10-10 15:12] LABS: Hematocrit 32.3 % (42.0-52.0); Hemoglobin 10.4 g/dL (14.0-18.0); Mean Corpuscular HGB Conc 32.2 g/dl (32-36); Mean Corpuscular Hemoglobin 21.7 pg (26-34); Mean Corpuscular Volume 67.3 fl (80-100); Mean Platelet Volume 10.9 fl (7.4-10.4); Platelet Count Result 312 k/mm3 (150-375); Red Cell Distribution Width 17.9 % (11.5-14.5)
[2021-10-10 15:28] LABS: Anion Gap 8 mmol/L (8-16); Blood Urea Nitrogen 16 mg/dL (9-20); Calcium 7.9 mg/dL (8.4-10.2); Carbon Dioxide 23 mmol/L (22-30); Chloride 100 mmol/L (98-107); Estimated CRCL calculation 64 ml/min; Estimated Glomerular Filt Rate > 60; Glucose 151 mg/dL (65-110); Potassium 3.7 mmol/L (3.4-5.0); Sodium 131 mmol/L (137-145)
[2021-10-10 15:49] LABS: Burr Cells 3+ (NORMAL); Platelet Estimate Adequate (Adequate)
[2021-10-10 15:50] LABS: Acanthocytes 2+ (NORMAL); Ovalocytes 3+ (NORMAL)
[2021-10-10 15:51] LABS: Anisocytosis 3+ (NORMAL); Poikilocytosis 3+ (NORMAL)
[2021-10-10] MEDS: MELATONIN 3 MG TABLET PO (20:52)
[2021-10-11] VITALS (11 sets, daily range): BP systolic 137–165; BP diastolic 80–94; PULSE 80–110; RESP 18–24; TEMP 36.2–36.6; O2SAT 92–96
[2021-10-11] MEDS: ALBUTEROL SULFATE (*SP) INHALER 2 PUFF INHALATION ×4 (02:32→20:16)
[2021-10-11] MEDS: guaiFENesin/DEXTROMETHORPHAN 10 ML UDC PO (04:50)
[2021-10-11 06:03] LABS: Hematocrit 32.1 % (42.0-52.0); Hemoglobin 10.2 g/dL (14.0-18.0); Immature Granulocyte Absolute 0.04 K/mm3 (0.00-0.031); Immature Granulocyte Percent A 0.4 % (0-0.5); Lymphocytes Absolute Auto 0.32 K/mm3 (0.9-3.2); Lymphocytes Percent Auto 3.1 % (18.3-44.2); Mean Corpuscular HGB Conc 31.8 g/dl (32-36); Mean Corpuscular Volume 69.2 fl (80-100); Mean Platelet Volume 10.8 fl (7.4-10.4); Monocytes Absolute Auto 0.2 K/mm3 (0.1-0.6); Neutrophils Absolute Auto 9.6 K/mm3 (1.3-6.7); Neutrophils Percent Auto 94.5 % (45.5-73.1); Platelet Count Result 276 k/mm3 (150-375); Red Blood Count 4.64 M/mm3 (4.6-6.20); Red Cell Distribution Width 17.8 % (11.5-14.5); White Blood Count 10.2 K/mm3 (4.5-10.0)
[2021-10-11 06:12] LABS: INR 1.1; Prothrombin Time 14.4 Seconds (11.1-14.7)
[2021-10-11 06:14] LABS: Alanine Aminotransferase 54 U/L (4-50); Anion Gap 6 mmol/L (8-16); Blood Urea Nitrogen 17 mg/dL (9-20); Calcium 8.2 mg/dL (8.4-10.2); Carbon Dioxide 25 mmol/L (22-30); Chloride 100 mmol/L (98-107); Estimated CRCL calculation 64 ml/min; Estimated Glomerular Filt Rate > 60; Glucose 127 mg/dL (65-110); Potassium 3.5 mmol/L (3.4-5.0); Sodium 131 mmol/L (137-145)
[2021-10-11] MEDS: SUCRALFATE SUSP 100 MG/ML 10 ML UDC 1000 MG PO ×4 (06:54→21:23)
[2021-10-11 07:27] LABS: Burr Cells 2+ (NORMAL); Ovalocytes 1+ (NORMAL); Platelet Estimate Adequate (Adequate)
[2021-10-11 07:29] LABS: Acanthocytes 1+ (NORMAL); Poikilocytosis 2+ (NORMAL)
[2021-10-11] MEDS: BENZONATATE 100 MG CAPSULE 200 MG PO ×3 (08:33→16:56)
[2021-10-11] MEDS: ENOXAPARIN 40 MG/0.4 ML SYRINGE SUB-Q (08:33)
[2021-10-11] MEDS: METOPROLOL SUCCINATE EXT REL 100 MG TABCR PO (08:33)
[2021-10-11] MEDS: PANTOPRAZOLE SODIUM IV 40 MG VIAL IV PUSH ×2 (08:33→21:22)
[2021-10-11] MEDS: ASPIRIN 81 MG CHEWABLE TABLET PO (08:34)
--- NOTE | 2021-10-11 09:34 | PM.CNPUL ---
Assessment and Plan Assessment and plan (1) Pneumonia due to COVID-19 virus: Code(s): U07.1 - COVID-19; J12.82 - Pneumonia due to coronavirus disease 2019 Status: Acute Assessment and Plan: 71-year-old man with a history of ulcerative colitis, immunocompromised on anti TNF agents, history of asthma, with acute hypoxemic respiratory failure and bilateral ground-glass opacities related to COVID-19 infection. Since admission to the hospital the patient's respiratory status has been stable or slightly improved based on the drop in oxygen flow from 4-5 liters/minute down to 1 liter/minute. Patient has been on remdesivir and dexamethasone IV. There is no evidence of asthma exacerbation while the patient is on maintenance ICS Laba medication and short-acting bronchodilators. Plan: Continue with current regimen for now, repeat CRP D-dimers and portable chest x-ray. Will monitor respiratory status at this point. Continue with current bronchodilators for asthma. (2) Asthma: Qualifiers: Asthma severity: moderate Asthma persistence: unspecified Asthma complication type: uncomplicated Qualified Code(s): J45.909 - Unspecified asthma, uncomplicated Code(s): J45.909 - Unspecified asthma, uncomplicated Status: Acute (3) Acute respiratory failure with hypoxia: Code(s): J96.01 - Acute respiratory failure with hypoxia Status: Acute (4) Ulcerative colitis: Qualifiers: Ulcerative colitis location: unspecified ulcerative colitis location Digestive disease complication type: unspecified complication Qualified Code(s): K51.919 - Ulcerative colitis, unspecified with unspecified complications Code(s): K51.90 - Ulcerative colitis, unspecified, without complications Status: Acute History of Present Illness History of Present Illness Consult date: 10/11/21 Chief complaint: Covid pneumonia Narrative: This 71-year-old man was admitted into the hospital 3 days ago with worsening COVID 19 infection symptoms. The patient has history of asthma, ulcerative colitis chronically on anti TNF agents. He was in his usual state of health until approximately 11 days ago when he presented to the emergency room with cough and shortness of breath. Workup in the emergency room showed faint pulmonary infiltrates and the patient was discharged home with a diagnosis of pneumonitis for which he received an antibiotic for 7 days. Subsequently, the COVID 19 test came back positive. While at home the patient developed more symptoms related to COVID 19 infection such as generalized muscle aches, fever, weakness, cough productive of yellow phlegm, and nausea and vomiting. He had no symptoms related to his chronic ulcerative colitis such as diarrhea hematochezia or abdominal pain. He also denied having wheezing chest pain palpitations or hemoptysis. Workup with chest CT on the day of admission showed extensive ground-glass opacities bilaterally. The patient has been on treatment with remdesivir and dexamethasone IV. Over the last 3 days, the gas exchange has somewhat improved, with oxygen flow now down to 1 liter/minute from a previous level of 4-5 liters/minute. Patient continues to have generalized weakness unable to get out of bed, cough with light yellow sputum production especially at night, but no fever chills or wheezing. His cough has improved somewhat over the last a day. he has had history of asthma for many years for which he has been on Symbicort 160/4.5 inhaler and short-acting bronchodilators. His asthma was reportedly well controlled on current regimen with no previous hospitalizations for asthma exacerbation. Review of Systems Review of Systems: All systems reviewed & are unremarkable except as noted in HPI and below PMFSH Past Medical History Medical History Asthma CAD (coronary artery disease) stent placed in Oct 2018 to the prox LAD
[2021-10-11] MEDS: NITROGLYCERIN SL 0.4 MG TABLET SUBLINGUAL (09:35)
--- NOTE | 2021-10-11 09:43 | ECG_ITS ---
Measurements Intervals [place] Rate: 89 P: 26 TX: 177 QRS: 13 QRSD: 133 T: 9 QT: 371 QTc: 453 Interpretive Statements SINUS RHYTHM RIGHT BUNDLE BRANCH BLOCK CONSIDER INFERIOR INFARCT, AGE INDETERMINATE BASELINE WANDER- I, II ABNORMAL ECG Electronically Signed On 10-11-2021 10:00:42 INCOMING FREIGHT CLERK by Efraín Reese D.O.
[2021-10-11] MEDS: ASPIRIN 81 MG CHEWABLE TABLET 162 MG PO (10:02)
[2021-10-11] MEDS: REMDESIVIR 100 MG/NS 250 ML 100 MG/250 ML BAG 250 MG IVPB (10:02)
--- NOTE | 2021-10-11 10:05 | PM.IMPN ---
Progress Note: A&P Assessment and Plan (1) Left arm pain: Code(s): M79.602 - Pain in left arm Status: Acute Assessment and Plan: Patient has this intermittently and felt to be anginal equivalent. His [employer] is aware but no recent stress test per patient. Stat EKG ordered and reviewed showing no change. NTG given already and symptoms improving. Troponin ordered. ASA given. Continue to trend Troponin. (2) Acute respiratory failure with hypoxia: Code(s): J96.01 - Acute respiratory failure with hypoxia Status: Acute Assessment and Plan: Patient admitted with increasing shortness of breath and cough after recently being diagnosed with COVID pneumonia on 09/29/2021. Cough is improving. Oral intake is improving after symptomatic relief of GERD symptoms with carafate. Patient is about 14 days out from the start of his symptoms. CTA of the chest reviewed showing diffuse lung disease consistent with COVID pneumonia but no PE. Oxygen requirement have improved to 1L. Increase in cough but probably mobilizing secretions. CXR today reviewed showing resolving COVID PNA. Continue supportive care. Treatment as below. Wean oxygen as tolerated. Continue albuterol HFA. (3) Pneumonia due to COVID-19 virus: Code(s): U07.1 - COVID-19; J12.82 - Pneumonia due to coronavirus disease 2018 Status: Acute Assessment and Plan: Patient was admitted to the medical unit. Oxygen requirement increased to 4 L. Remdesivir and dexamethasone were appropriately started. Given his immunosuppressive condition, there is some data is to suggest that there is improvement with convalescent plasma. Spoke with patient about the risks and benefits and he is agreeable to proceed and as such convalescent plasma was given 10/08. Able to wean oxygen to 1L today. Continue supportive care. CRP better at 2.9 but DDimer 14. Has been on Lovenox since admission. Chest CTA negative for PE on 09/29 and 10/08. Negative Homans sign but will check dopplers. (4) Hyponatremia: Code(s): E87.1 - Hypo-osmolality and hyponatremia Status: Acute Assessment and Plan: Plasma sodium 119 on admission. Serum sodium is improving slowly up to 131. Urine sodium 10 with FENA at 0.07%. This suggests dehydration from his nausea and vomiting and poor oral intake. Urine ketones are elevated which goes along with this diagnosis. He received a 1L of fluid in the ER and another 500mL (limiting IV fluids due to COVID PNA). Patient mentation has improved back to baseline. Continue close observation of sodium and treat accordingly. TSH and cortisol level are within acceptable range. (5) HTN (hypertension): Qualifiers: Hypertension type: unspecified Qualified Code(s): I10 - Essential (primary) hypertension Code(s): I10 - Essential (primary) hypertension Status: Acute Assessment and Plan: Patient's blood pressure was reviewed on 10/11 Blood pressure elevated at times. Will continue current medications. Continue to monitor. (6) GERD (gastroesophageal reflux disease): Code(s): K21.9 - Gastro-esophageal reflux disease without esophagitis Status: Acute Assessment and Plan: Patient has been reporting classic acid reflux symptoms but resolved today. Patient has improved symptomatically after the addition of Carafate to his GI regimen. Continue Protonix scheduled and Tums p.r.n. (7) Asthma: Qualifiers: Asthma complication type: uncomplicated Asthma persistence: unspecified Asthma severity: moderate Qualified Code(s): J45.909 - Unspecified asthma, uncomplicated Code(s): J45.909 - Unspecified asthma, uncomplicated Status: Acute Assessment and Plan: No wheezing. Continue albuterol HFA scheduled. (8) CAD (coronary artery disease): Code(s): I25.10 - Atherosclerotic heart disease of [place] coronary artery without angina pectoris
[2021-10-11 10:29] LABS: Troponin I < 0.012 ng/mL (0.000-0.034)
[2021-10-11 10:31] LABS: CRP 2.9 mg/dL (<1.0)
[2021-10-11 10:36] LABS: D Dimer 13.88 ug/mL (<0.48)
[2021-10-11 18:01] LABS: Troponin I 0.061 ng/mL (0.000-0.034)
--- NOTE | 2021-10-11 20:22 | PCRCNOTE ---
Entered Room and found pt on 1L. PT states they do not wear oxygen at home. Titrated O2 off and pt desated down to 90. Turned one liter back on and pt jumped back up to 95. Will try to reasses at a later time.
[2021-10-11] MEDS: APIXABAN 5 MG TABLET 10 MG PO (21:22)
[2021-10-11] MEDS: MELATONIN 3 MG TABLET PO (21:23)
[2021-10-12] VITALS (11 sets, daily range): BP systolic 130–158; BP diastolic 75–89; PULSE 72–104; RESP 18; TEMP 36.3–36.6; O2SAT 91–96
[2021-10-12] MEDS: ALBUTEROL SULFATE (*SP) INHALER 2 PUFF INHALATION ×4 (02:01→21:10)
[2021-10-12] MEDS: SUCRALFATE SUSP 100 MG/ML 10 ML UDC 1000 MG PO ×4 (05:13→23:05)
[2021-10-12 06:56] LABS: INR 1.5; Prothrombin Time 17.8 Seconds (11.1-14.7)
[2021-10-12 06:59] LABS: Alanine Aminotransferase 58 U/L (4-50); Alkaline Phosphatase 77 U/L (38-126); Anion Gap 7 mmol/L (8-16); Aspartate Amino Transferase 58 U/L (17-59); Bilirubin,Total 0.8 mg/dL (0.2-1.3); Blood Urea Nitrogen 18 mg/dL (9-20); Carbon Dioxide 24 mmol/L (22-30); Chloride 97 mmol/L (98-107); Estimated CRCL calculation 64 ml/min; Estimated Glomerular Filt Rate > 60; Glucose 100 mg/dL (65-110); Potassium 3.8 mmol/L (3.4-5.0); Sodium 128 mmol/L (137-145)
[2021-10-12 07:09] LABS: Basophils Percent Auto 0.1 % (0.2-1.2); Hematocrit 34.6 % (42.0-52.0); Hemoglobin 10.8 g/dL (14.0-18.0); Immature Granulocyte Absolute 0.07 K/mm3 (0.00-0.031); Immature Granulocyte Percent A 0.7 % (0-0.5); Lymphocytes Absolute Auto 0.55 K/mm3 (0.9-3.2); Lymphocytes Percent Auto 5.2 % (18.3-44.2); Mean Corpuscular HGB Conc 31.2 g/dl (32-36); Mean Corpuscular Hemoglobin 21.9 pg (26-34); Mean Corpuscular Volume 70.2 fl (80-100); Mean Platelet Volume 10.8 fl (7.4-10.4); Monocytes Absolute Auto 0.3 K/mm3 (0.1-0.6); Neutrophils Absolute Auto 9.5 K/mm3 (1.3-6.7); Platelet Count Result 308 k/mm3 (150-375); Red Blood Count 4.93 M/mm3 (4.6-6.20); Red Cell Distribution Width 18.3 % (11.5-14.5); White Blood Count 10.5 K/mm3 (4.5-10.0)
[2021-10-12 07:09] LABS: Troponin I 0.082 ng/mL (0.000-0.034)
[2021-10-12] MEDS: BENZONATATE 100 MG CAPSULE 200 MG PO ×3 (08:28→17:59)
[2021-10-12] MEDS: ASPIRIN 81 MG CHEWABLE TABLET PO (08:29)
[2021-10-12] MEDS: APIXABAN 5 MG TABLET 10 MG PO ×2 (08:29→23:04)
[2021-10-12] MEDS: PANTOPRAZOLE SODIUM IV 40 MG VIAL IV PUSH ×2 (08:30→23:04)
[2021-10-12] MEDS: METOPROLOL SUCCINATE EXT REL 100 MG TABCR PO (08:30)
--- NOTE | 2021-10-12 08:48 | PM.IMPN ---
Progress Note: A&P Assessment and Plan (1) DVT (deep venous thrombosis): Code(s): I82.409 - Acute embolism and thrombosis of unspecified deep veins of unspecified lower extremity Status: Acute Assessment and Plan: Doppler showing deep vein thrombosis involving right soleus vein. He has been on lovenox since admission so suspect may have been present on admission. Due to the high risk for propagation given that ulcer of colitis inflammatory process and the fact that he has COVID, it was determined that full anticoagulation should be started. Patient started on Eliquis. Check CTA given the elevated troponins. (2) Left arm pain: Code(s): M79.602 - Pain in left arm Status: Acute Assessment and Plan: Patient had left arm pain yesterday. He has this intermittently and felt to be anginal equivalent. His [employer] is aware but no recent stress test per patient. Stat EKG ordered and reviewed showing no change. NTG and ASA was given and symptoms improved. Troponin has trended upward to 0.08. DDimer also was positive and doppler ordered with results as mentioned above. Continue ASA and metoprolol, Add back lipitor. Check Echo. Cardiology consult. Check CTA for PE. (3) Elevated troponin: Code(s): R77.8 - Other specified abnormalities of plasma proteins Status: Acute Assessment and Plan: Patient had elevated troponin to 0.08. These were drawn because he was having left arm pain yesterday that he describes as anginal equivalent. Treatment as above. (4) Acute respiratory failure with hypoxia: Code(s): J96.01 - Acute respiratory failure with hypoxia Status: Acute Assessment and Plan: Patient admitted with increasing shortness of breath and cough after recently being diagnosed with COVID pneumonia on 09/29/2021. Oral intake is improving after symptomatic relief of GERD symptoms with carafate. Patient is about 15 days out from the start of his symptoms. CTA of the chest on admission reviewed showing diffuse lung disease consistent with COVID pneumonia but no PE. Oxygen requirement improved and now on room air. Increase in cough but probably mobilizing secretions. CXR yesterday showing resolving COVID PNA. Continue supportive care. Treatment as below. Continue albuterol HFA. (5) Pneumonia due to COVID-19 virus: Code(s): U07.1 - COVID-19; J12.82 - Pneumonia due to coronavirus disease 2019 Status: Acute Assessment and Plan: Patient was admitted to the medical unit. Oxygen requirement increased to 4 L. Remdesivir and dexamethasone were appropriately started. Given his immunosuppressive condition, there is some data is to suggest that there is improvement with convalescent plasma. Spoke with patient about the risks and benefits and he is agreeable to proceed and as such convalescent plasma was given 10/08. Able to wean oxygen to RA today. Continue supportive care. (6) Hyponatremia: Code(s): E87.1 - Hypo-osmolality and hyponatremia Status: Acute Assessment and Plan: Plasma sodium 119 on admission. Serum sodium is improving slowly up to 131. TSH and cortisol level are within acceptable range. Urine sodium 10 with FENA at 0.07%. This suggests dehydration from his nausea and vomiting and poor oral intake. Urine ketones are elevated which goes along with this diagnosis. He received a 1L of fluid in the ER and another 500mL after admission (limiting IV fluids due to COVID PNA). Patient's mentation has improved back to baseline. Na dropped to 128 today despite eating normally. Continue close observation of sodium and treat accordingly. Add NaCl tablets. Repeat urine studies (7) HTN (hypertension): Qualifiers: Hypertension type: unspecified Qualified Code(s): I10 - Essential (primary) hypertension Code(s): I10 - Essential (primary) hypertension Status: Acute Assessment and Plan: Patient's blood press
--- NOTE | 2021-10-12 09:22 | PM.PNPUL ---
Progress Note: A&P Assessment and Plan (1) Acute respiratory failure with hypoxia: Code(s): J96.01 - Acute respiratory failure with hypoxia Status: Acute (2) Pneumonia due to COVID-19 virus: Code(s): U07.1 - COVID-19; J12.82 - Pneumonia due to coronavirus disease 2019 Status: Acute Assessment and Plan: respiratory status improving slowly. Currently patient is off supplemental oxygen, breathing room air. Chest x-ray still showing bilateral infiltrates. Physical exam also showing crackles as before But no wheezing. Patient for was diagnosed with a right below-knee a DVT and was started on direct anticoagulant. Continue with current treatment. He will need repeat chest x-ray in about 6-8 weeks as an outpatient to document clearing of pulmonary infiltrates. Patient will stay on his maintenance bronchodilators for his asthma. (3) Asthma: Qualifiers: Asthma severity: moderate Asthma persistence: unspecified Asthma complication type: uncomplicated Qualified Code(s): J45.909 - Unspecified asthma, uncomplicated Code(s): J45.909 - Unspecified asthma, uncomplicated Status: Acute (4) DVT (deep venous thrombosis): Qualifiers: DVT location: lower extremity Affected thrombotic vein of extremity: unspecified lower extremity distal vein Chronicity: unspecified Laterality: right Qualified Code(s): I82.4Z1 - Acute embolism and thrombosis of unspecified deep veins of right distal lower extremity Code(s): I82.409 - Acute embolism and thrombosis of unspecified deep veins of unspecified lower extremity Status: Acute Subjective Date/time seen: 10/12/21 09:22 Patient feels better. Less shortness of breath, cough improving as well. supplemental oxygen was discontinued. On Eliquis for right DVT, below-knee. Troponin elevation. Review of Systems Review of Systems: All systems reviewed & are unremarkable except as noted in HPI and below (and H & P) Exam Narrative: GENERAL APPEARANCE: Well developed, well nourished, alert and cooperative, and appears to be in no acute distress while breathing room air SKIN: Inspection of the skin reveals no rashes, ulcerations or petechiae. HEENT: Sclerae anicteric and conjunctivae pink and moist. Extraocular movements were intact and pupils were equal, round, and reactive to light. The oral mucosa, hard and soft palate, tongue and posterior pharynx were normal. NECK: Supple. There was no thyroid enlargement, and no tenderness, or masses were felt. CHEST: Normal AP diameter and normal contour without any kyphoscoliosis. LUNGS: Auscultation of the lungs revealed crackles at bases bilaterally, worse on right. No wheezing CARDIAC: There was a regular rate and rhythm without any murmurs, gallops, rubs. ABDOMEN: Soft and nontender with normal bowel sounds. There was no organomegaly. LYMPH NODES: No lymphadenopathy was appreciated in the neck. EXTREMITIES: No cyanosis, clubbing or edema. NEUROLOGIC: Alert and oriented x 3. Normal affect. Objective Data Vital Signs Vital Signs: Vital Signs - 24 hr 10/11/21 09:38 10/11/21 12:00 10/11/21 16:00 Temperature 36.2 C L 36.3 C L Pulse Rate 106 H 80 Respiratory Rate 24 H 24 H Blood Pressure 153/91 H 137/85 165/94 H Pulse Oximetry 95 96 10/11/21 20:00 10/11/21 20:21 10/12/21 00:00 Temperature 36.4 C L 36.6 C Pulse Rate 85 81 Respiratory Rate 18 18 Blood Pressure 144/85 H 143/77 H Pulse Oximetry 95 95 93 10/12/21 04:00 10/12/21 08:08 10/12/21 08:30 Temperature 36.4 C L Pulse Rate 72 72 Respiratory Rate 18 Blood Pressure 130/75 Pulse Oximetry 91 96 Intake/Output Intake/Output: Intake & Output 10/09/21 10/10/21 10/11/21 10/12/21 23:59 23:59 23:59 23:59 Intake Total 3220 2220 1510 750 Output Total 1350 700 400 800 Balance 1870 1520 1110 -50 Meds/Results Medications: Active Medications Generic Name Dose Route Start Last Admin Trade Na
[2021-10-12] MEDS: REMDESIVIR 100 MG/NS 250 ML 100 MG/250 ML BAG 250 MG IVPB (09:39)
[2021-10-12] MEDS: ATORVASTATIN 40 MG TABLET PO (10:47)
[2021-10-12] MEDS: SODIUM CHLORIDE 500 MG TABLET PO ×2 (10:47→17:59)
--- NOTE | 2021-10-12 11:01 | PM.CNCAR ---
Assessment and Plan Assessment and plan (1) Elevated troponin: Code(s): R77.8 - Other specified abnormalities of plasma proteins Status: Acute Assessment and Plan: 71-year-old male with CAD, history of non ST-elevation IN, status post PCI/YULY x2 proximal LAD on 10/22/2018; ischemic cardiomyopathy (LVEF reported to be 30% at the time of cardiac catheterization on 10/22/2018), ulcerative colitis on Humira, asthma, recent COVID-19 infection. Patient presented with persistent cough and worsening shortness of breath after recent COVID-19 pneumonia. His EKG showed sinus tachycardia, right bundle-branch block without acute ST segment abnormality. Troponins are minimally elevated. Patient was found to have right lower extremity DVT, and repeat CTA of the chest is positive for pulmonary embolism. Patient does not have any ongoing cardiac ischemic symptoms, and his troponin elevation is likely secondary to PE. -continue anticoagulation with apixaban, pulmonary embolism dosing. -continue low-dose aspirin; beta-dinh, statin. -check echocardiogram with Doppler to assess LV/RV function and PA pressures. -continue to monitor on tele. -plan discussed with the patient and primary team. (2) DVT (deep venous thrombosis): Qualifiers: DVT location: lower extremity Affected thrombotic vein of extremity: unspecified lower extremity distal vein Chronicity: unspecified Laterality: right Qualified Code(s): I82.4Z1 - Acute embolism and thrombosis of unspecified deep veins of right distal lower extremity Code(s): I82.409 - Acute embolism and thrombosis of unspecified deep veins of unspecified lower extremity Status: Acute Assessment and Plan: Management as described above. (3) Pulmonary embolism: Code(s): I26.99 - Other pulmonary embolism without acute cor pulmonale Status: Acute Assessment and Plan: Anticoagulation as described above. (4) Pneumonia due to COVID-19 virus: Code(s): U07.1 - COVID-19; J12.82 - Pneumonia due to coronavirus disease 2019 Status: Acute (5) CAD (coronary artery disease): Code(s): I25.10 - Atherosclerotic heart disease of [place] coronary artery without angina pectoris Status: Acute Assessment and Plan: No active ischemic symptoms at present. Continue aspirin, beta-dinh, statin. Echocardiogram with Doppler is pending. Monitor on telemetry for now. History of Present Illness History of Present Illness Consult date/time: 10/12/21 11:01 DATE OF CONSULT: 10/12/2021 REASON FOR CONSULT: Arm pain, troponin elevation REQUESTING PHYSICIAN:Mehran Carlson MD CHIEF COMPLAINT: Cough and shortness of breath HPI: 71-year-old male with CAD, history of non ST-elevation IN, status post PCI/YULY x2 proximal LAD on 10/22/2018; ischemic cardiomyopathy (LVEF reported to be 30% at the time of cardiac catheterization on 10/22/2018), ulcerative colitis on Humira, asthma, recent COVID-19 infection. He presented to [facility] Emergency Room on 10/08/2021 with persistent cough and shortness of breath. He was recently admitted to the hospital on 09/29/2021 with COVID-19 pneumonia. His EKG on my personal evaluation showed sinus tachycardia, heart rate 117 beats per minute, right bundle-branch block. No significant change compared to the previous EKG, except elevated heart rate on the presenting EKG. Troponins are minimally elevated at 0.061, 0.082. CTA chest at admission showed Extensive patchy groundglass infiltrates throughout both lungs, likely due to Covid pneumonia; no evidence of pulmonary embolism, moderate-sized hiatal hernia. Chest x-ray showed findings consistent with COVID-19 pneumonia. Lower extremity venous duplex showed DVT in the right soleus vein. Due to patient's worsening shortness of breath, lower extremity DVT and mild troponin elevation, he had repeat CTA of chest today, which on preliminary reporting was positive for pulmonary e
[2021-10-12 19:36] LABS: Sodium Urine Random 140 meq/L
[2021-10-12] MEDS: guaiFENesin/DEXTROMETHORPHAN 10 ML UDC PO (23:04)
[2021-10-12] MEDS: MELATONIN 3 MG TABLET PO (23:04)
[2021-10-13] VITALS (8 sets, daily range): BP systolic 141–145; BP diastolic 88–89; PULSE 72–112; RESP 18; TEMP 36.2–36.3; O2SAT 94–96
--- NOTE | 2021-10-13 | ECHO_ITS ---
Patient Info Name: Arvind Pruett Age: 71 years : 1950 Gender: Male Ht: 64 in Wt: 193 lbs BSA: 2.02 m2 HR: 90 bpm BP: 140 / 88 mmHg Heart Rhythm: Sinus Rhythm Technical Quality: Fair, Good Exam Date: 10/13/2021 9:57 AM Exam Location: [facility] Pulmonary Exam Room: [facility] Patient Status: Inpatient Admit Date: 10/09/2021 Staff Ordering Physician: Mehran Carlson MD Lung Puller: NINFA Attending Provider: Ira Goodwin DO Exam Type: CA echo doppler color flow Study Info Indications - CHEST PAIN Complete two-dimensional, color flow and Doppler transthoracic echocardiogram is performed. Summary 1. Complete two-dimensional, color flow and Doppler transthoracic echocardiogram is performed. 2. Left ventricular systolic function is normal, estimated at >70%. 3. There is no increased left ventricular wall thickness. 4. The left ventricular diastolic function is grade I diastolic dysfunction. 5. There is no aortic valve stenosis. 6. There is trace mitral valve regurgitation. 7. There is trace tricuspid valve regurgitation. 8. Unable to estimate PA systolic pressure due to poor spectral resolution of tricuspid regurgitant jet velocity. Left Ventricle Left ventricular chamber dimension is normal. Left ventricular systolic function is normal, estimated at >70%. There is no increased left ventricular wall thickness. The left ventricular diastolic function is grade I diastolic dysfunction. Right Ventricle Right ventricular chamber dimension is normal. Right ventricular systolic function is normal. Left Atria Left atrial chamber dimension is mildly enlarged. Right Atria Right atrial chamber dimension is normal. Aortic Valve The aortic valve is probable trileaflet. There is mild aortic valve sclerosis. There is no aortic valve stenosis. There is no aortic valve regurgitation. Pulmonic Valve The pulmonic valve is not well visualized. There is trace pulmonic regurgitation. Mitral Valve The mitral valve has normal leaflets. There is trace mitral valve regurgitation. The mitral valve annulus is mildly calcified. Tricuspid Valve The tricuspid valve leaflets are normal. There is trace tricuspid valve regurgitation. Unable to estimate PA systolic pressure due to poor spectral resolution of tricuspid regurgitant jet velocity. Pericardium/Pleural The pericardium appears normal. There is trivial pericardial effusion. Inferior Vena Cava Normal inferior vena cava with >50% collapse upon inspiration consistent with normal right atrial pressure, 5 mmHg. Aorta The aortic root size at the sinus of Valsalva is normal. The prox ascending aorta size is mildly dilated at 3.8 cm. There is mild aortic atherosclerosis. Left Ventricular Outflow Tract Name Value Normal LVOT 2D LVOT Diameter 1.9 cm LVOT Doppler LVOT Peak Gradient 5 mmHg LVOT Mean Gradient 3 mmHg LVOT VTI 24 cm LVOT VTI/AV VTI Ratio 0.7 LVOT Stroke Volume 67 ml
[2021-10-13] MEDS: ALBUTEROL SULFATE (*SP) INHALER 2 PUFF INHALATION ×3 (02:25→14:45)
[2021-10-13] MEDS: SUCRALFATE SUSP 100 MG/ML 10 ML UDC 1000 MG PO ×2 (06:19→12:13)
[2021-10-13 06:56] LABS: Alanine Aminotransferase 55 U/L (4-50); Albumin Level 2.7 g/dL (3.5-5.1); Alkaline Phosphatase 74 U/L (38-126); Anion Gap 5 mmol/L (8-16); Aspartate Amino Transferase 51 U/L (17-59); Bilirubin,Total 0.8 mg/dL (0.2-1.3); Blood Urea Nitrogen 22 mg/dL (9-20); Calcium 7.9 mg/dL (8.4-10.2); Carbon Dioxide 25 mmol/L (22-30); Chloride 101 mmol/L (98-107); Estimated CRCL calculation 64 ml/min; Estimated Glomerular Filt Rate > 60; Glucose 87 mg/dL (65-110); Potassium 3.9 mmol/L (3.4-5.0); Sodium 131 mmol/L (137-145)
[2021-10-13] MEDS: ASPIRIN 81 MG CHEWABLE TABLET PO (09:12)
[2021-10-13] MEDS: ATORVASTATIN 40 MG TABLET PO (09:12)
[2021-10-13] MEDS: SODIUM CHLORIDE 500 MG TABLET PO (09:13)
[2021-10-13] MEDS: BENZONATATE 100 MG CAPSULE 200 MG PO ×2 (09:13→13:53)
[2021-10-13] MEDS: PANTOPRAZOLE SODIUM IV 40 MG VIAL IV PUSH (09:13)
[2021-10-13] MEDS: APIXABAN 5 MG TABLET 10 MG PO (09:13)
[2021-10-13] MEDS: METOPROLOL SUCCINATE EXT REL 100 MG TABCR PO (09:14)
--- NOTE | 2021-10-13 13:43 | PM.DS ---
DS: Admitting Diagnosis Discharge Date 10/13/21 Admitting Diagnosis SOB and hypoxia. DS: Discharge Diagnosis Discharge Diagnosis (1) DVT (deep venous thrombosis): Qualifiers: DVT location: lower extremity Affected thrombotic vein of extremity: unspecified lower extremity distal vein Chronicity: unspecified Laterality: right Qualified Code(s): I82.4Z1 - Acute embolism and thrombosis of unspecified deep veins of right distal lower extremity Code(s): I82.409 - Acute embolism and thrombosis of unspecified deep veins of unspecified lower extremity Status: Acute Assessment and Plan: Doppler showing deep vein thrombosis involving right soleus vein. He has been on lovenox since admission so suspect may have been present on admission. Due to the high risk for propagation given that ulcer of colitis inflammatory process and the fact that he has COVID, it was determined that full anticoagulation should be started. Patient started on Eliquis. Check CTA given the elevated troponins. (2) Left arm pain: Code(s): M79.602 - Pain in left arm Status: Acute Assessment and Plan: Patient had left arm pain yesterday. He has this intermittently and felt to be anginal equivalent. 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 Stat EKG ordered and reviewed showing no change. NTG and ASA was given and symptoms improved. Troponin has trended upward to 0.08. DDimer also was positive and doppler ordered with results as mentioned above. Continue ASA and metoprolol, Add back lipitor. Check Echo. Cardiology consult. Check CTA for PE. (3) Elevated troponin: Code(s): R77.8 - Other specified abnormalities of plasma proteins Status: Acute Assessment and Plan: Patient had elevated troponin to 0.08. These were drawn because he was having left arm pain yesterday that he describes as anginal equivalent. Treatment as above. (4) Acute respiratory failure with hypoxia: Code(s): J96.01 - Acute respiratory failure with hypoxia Status: Acute Assessment and Plan: Patient admitted with increasing shortness of breath and cough after recently being diagnosed with COVID pneumonia on 09/29/2021. Oral intake is improving after symptomatic relief of GERD symptoms with carafate. Patient is about 15 days out from the start of his symptoms. CTA of the chest on admission reviewed showing diffuse lung disease consistent with COVID pneumonia but no PE. Oxygen requirement improved and now on room air. Increase in cough but probably mobilizing secretions. CXR yesterday showing resolving COVID PNA. Continue supportive care. Treatment as below. Continue albuterol HFA. (5) Pneumonia due to COVID-19 virus: Code(s): U07.1 - COVID-19; J12.82 - Pneumonia due to coronavirus disease 2019 Status: Acute Assessment and Plan: Patient was admitted to the medical unit. Oxygen requirement increased to 4 L. Remdesivir and dexamethasone were appropriately started. Given his immunosuppressive condition, there is some data is to suggest that there is improvement with convalescent plasma. Spoke with patient about the risks and benefits and he is agreeable to proceed and as such convalescent plasma was given 10/08. Able to wean oxygen to RA today. Continue supportive care. (6) Hyponatremia: Code(s): E87.1 - Hypo-osmolality and hyponatremia Status: Acute Assessment and Plan: Plasma sodium 119 on admission. Serum sodium is improving slowly up to 131. TSH and cortisol level are within acceptable range. Urine sodium 10 with FENA at 0.07%. This suggests dehydration from his nausea and vomiting and poor oral intake. Urine ketones are elevated which goes along with this diagnosis. He received a 1L of fluid in the ER and another 500mL after admission (limiting IV fluids due to COVID PNA). Patient's mentation has improved back to baseline. Na dropped to 128 to
--- NOTE | 2021-10-13 16:33 | PM.PNPUL ---
Progress Note: A&P Assessment and Plan (1) Acute respiratory failure with hypoxia: Code(s): J96.01 - Acute respiratory failure with hypoxia Status: Acute (2) Pneumonia due to COVID-19 virus: Code(s): U07.1 - COVID-19; J12.82 - Pneumonia due to coronavirus disease 2019 Status: Acute Assessment and Plan: Respiratory status improving slowly. Currently patient is off supplemental oxygen, breathing room air. Agree with discharging patient home. He should continue with the direct anticoagulant for PE/DVT. He will need repeat chest x-ray in about 6-8 weeks to document clearing of bilateral pulmonary infiltrates. Also the need to continue the anti coagulant beyond the 3-6 month initial treatment period should be assessed at three months from today. we would like to evaluate patient in the outpatient clinic regarding COVID pneumonia approximately 4-6 weeks from today. (3) Asthma: Qualifiers: Asthma severity: moderate Asthma persistence: unspecified Asthma complication type: uncomplicated Qualified Code(s): J45.909 - Unspecified asthma, uncomplicated Code(s): J45.909 - Unspecified asthma, uncomplicated Status: Acute (4) DVT (deep venous thrombosis): Qualifiers: DVT location: lower extremity Affected thrombotic vein of extremity: unspecified lower extremity distal vein Chronicity: unspecified Laterality: right Qualified Code(s): I82.4Z1 - Acute embolism and thrombosis of unspecified deep veins of right distal lower extremity Code(s): I82.409 - Acute embolism and thrombosis of unspecified deep veins of unspecified lower extremity Status: Acute Subjective Date/time seen: 10/13/21 16:33 patient has no new respiratory symptoms. Remaining on room air. Cough significantly improved. He has less dyspnea. Eager to go home Review of Systems Review of Systems: All systems reviewed & are unremarkable except as noted in HPI and below (H and P and below) Exam Narrative: GENERAL APPEARANCE: Well developed, well nourished, alert and cooperative, and appears to be in no acute distress while breathing room air SKIN: Inspection of the skin reveals no rashes, ulcerations or petechiae. HEENT: Sclerae anicteric and conjunctivae pink and moist. Extraocular movements were intact and pupils were equal, round, and reactive to light. The oral mucosa, hard and soft palate, tongue and posterior pharynx were normal. NECK: Supple. There was no thyroid enlargement, and no tenderness, or masses were felt. CHEST: Normal AP diameter and normal contour without any kyphoscoliosis. LUNGS: Auscultation of the lungs revealed crackles at bases bilaterally, worse on right. No wheezing CARDIAC: There was a regular rate and rhythm without any murmurs, gallops, rubs. ABDOMEN: Soft and nontender with normal bowel sounds. There was no organomegaly. LYMPH NODES: No lymphadenopathy was appreciated in the neck. EXTREMITIES: No cyanosis, clubbing or edema. NEUROLOGIC: Alert and oriented x 3. Normal affect. Objective Data Vital Signs Vital Signs: Vital Signs - 24 hr 10/12/21 20:00 10/12/21 21:10 10/12/21 22:48 Temperature 36.3 C L Pulse Rate 83 85 Respiratory Rate 18 Blood Pressure 158/89 H Pulse Oximetry 94 95 10/13/21 00:00 10/13/21 04:00 10/13/21 04:20 Temperature 36.2 C L Pulse Rate 91 92 90 Respiratory Rate 18 Blood Pressure 145/88 H Pulse Oximetry 94 10/13/21 08:00 10/13/21 08:21 10/13/21 09:14 Temperature Pulse Rate 72 112 H Respiratory Rate Blood Pressure Pulse Oximetry 96 10/13/21 12:00 Temperature Pulse Rate 88 Respiratory Rate Blood Pressure Pulse Oximetry Intake/Output Intake/Output: Intake & Output 10/10/21 10/11/21 10/12/21 10/13/21 23:59 23:59 23:59 23:59 Intake Total 2220 1510 2580 510 Output Total 804 812 7068 400 Balance 1520 1110 1580 110 Meds/Results Medications: Active Medications Generi
== END 2021-10-13 16:07 | disposition home or self-care (01) | DRG 177 ==
LOC: ANHED 05:54 → ANH3MEDSUR 06:37
PROVIDERS: Internal Medicine; Internal Medicine Pulmonary Disease; Nurse Practitioner; Admitting Provider Internal Medicine; Emergency Provider Emergency Medicine; PCP Emergency Medicine; Visit Provider Internal Medicine
DX: U07.1 COVID-19 (principal); J12.82 Pneumonia due to coronavirus disease 2019; J96.01 Acute respiratory failure with hypoxia; I26.99 Other pulmonary embolism without acute cor pulmonale; E87.1 Hypo-osmolality and hyponatremia; K51.919 Ulcerative colitis, unspecified with unspecified complications; I82.461 Acute embolism and thrombosis of right calf muscular vein; I25.10 Atherosclerotic heart disease of native coronary artery without angina pectoris; K21.9 Gastro-esophageal reflux disease without esophagitis; K44.9 Diaphragmatic hernia without obstruction or gangrene; I10 Essential (primary) hypertension; I25.5 Ischemic cardiomyopathy; E78.00 Pure hypercholesterolemia, unspecified; J45.909 Unspecified asthma, uncomplicated; E87.8 Other disorders of electrolyte and fluid balance, not elsewhere classified; D50.9 Iron deficiency anemia, unspecified; R77.8 Other specified abnormalities of plasma proteins; M79.602 Pain in left arm; Z28.21 Immunization not carried out because of patient refusal; I25.2 Old myocardial infarction; Z79.82 Long term (current) use of aspirin; Z79.899 Other long term (current) drug therapy; Z86.73 Personal history of transient ischemic attack (TIA), and cerebral infarction without residual deficits; Z95.5 Presence of coronary angioplasty implant and graft; Z87.442 Personal history of urinary calculi
CPT/HCPCS: 36415; 36430; 71045; 71275; 80048; 80053; 80076; 81001; 82533; 82565; 82570; 82728; 83540; 83550; 83605; 83615; 83735; 84100; 84295; 84300; 84443; 84460; 84484; 85025; 85055; 85380; 85610; 86140; 86900; 86901; 93005; 93306; 93970; 94640; 96361; 96365; 96366; 96372; 96375; 96376; 99285; A9270; C9113; G0378; J1100; J1650; J2405; J7030; J7050; P9059; Q9967

== ENCOUNTER 2022-02-15 09:55 | Outpatient (CLI) | payer MEDICARE, SELFPAY ==
[2022-02-15 10:30] LABS: Hematocrit 39.4 % (42.0-52.0); Hemoglobin 11.7 g/dL (14.0-18.0); Immature Platelet Fraction Pct 6.7 % (0.9-11.2); Mean Corpuscular HGB Conc 29.7 g/dl (32-36); Mean Corpuscular Hemoglobin 21.4 pg (26-34); Mean Corpuscular Volume 72.2 fl (80-100); Mean Platelet Volume 10.9 fl (7.4-10.4); Platelet Count Result 274 k/mm3 (150-375); Red Blood Count 5.46 M/mm3 (4.6-6.20); Red Cell Distribution Width 18.1 % (11.5-14.5); White Blood Count 9.8 K/mm3 (4.5-10.0)
[2022-02-15 10:46] LABS: Alanine Aminotransferase 20 U/L (4-50); Albumin Level 3.8 g/dL (3.5-5.1); Alkaline Phosphatase 102 U/L (38-126); Anion Gap 5 mmol/L (8-16); Aspartate Amino Transferase 26 U/L (17-59); Bilirubin,Total 0.5 mg/dL (0.2-1.3); Blood Urea Nitrogen 25 mg/dL (9-20); Calcium 8.6 mg/dL (8.4-10.2); Carbon Dioxide 25 mmol/L (22-30); Chloride 104 mmol/L (98-107); Estimated Glomerular Filt Rate 59; Glucose 101 mg/dL (65-110); Potassium 4.5 mmol/L (3.4-5.0); Sodium 134 mmol/L (137-145)
[2022-02-15 11:16] LABS: Hepatitis B Surface Antigen Negative (Negative)
[2022-02-15 11:33] LABS: Hepatitis B Surface Anti Res Negative
[2022-02-15 11:34] LABS: Erythrocyte Sedimentation Rate 16 mm/hr (0-20)
[2022-02-17 11:12] LABS: NIL 0.03 IU/mL; Quantiferon TB Plus, 1T NEGATIVE (NEGATIVE)
[2022-02-18 16:24] LABS: Hepatitis B Core Ab Total Nonreactive (Nonreactive)
== END 2022-02-15 09:56 | disposition home or self-care (01) ==
LOC: ANHLAB 10:10
PROVIDERS: PCP Emergency Medicine; Visit Provider Nurse Practitioner Family
DX: K51.919 Ulcerative colitis, unspecified with unspecified complications (principal); Z11.59 Encounter for screening for other viral diseases; Z51.81 Encounter for therapeutic drug level monitoring; Z79.899 Other long term (current) drug therapy
CPT/HCPCS: 36415; 80053; 85027; 85055; 85652; 86140; 86480; 86704; 86706; 87340

== ENCOUNTER 2022-04-29 08:03 | Outpatient (CLI) | payer MEDICARE, SELFPAY ==
[2022-04-29 08:59] LABS: Alanine Aminotransferase 21 U/L (6-50); Albumin Level 3.7 g/dL (3.5-5.1); Alkaline Phosphatase 92 U/L (38-126); Anion Gap 6 mmol/L (8-16); Aspartate Amino Transferase 22 U/L (17-59); Bilirubin,Total 0.3 mg/dL (0.2-1.3); Blood Urea Nitrogen 26 mg/dL (9-20); Calcium 8.2 mg/dL (8.4-10.2); Carbon Dioxide 25 mmol/L (22-30); Chloride 106 mmol/L (98-107); Cholesterol 153 mg/dL (0-200); Estimated Glomerular Filt Rate 59; Glucose 99 mg/dL (65-110); HDL Direct 38 mg/dL; Potassium 3.9 mmol/L (3.4-5.0); Sodium 137 mmol/L (137-145); Triglycerides 60 mg/dL (<150)
[2022-04-29 09:10] LABS: LDL Cholesterol Direct 91 mg/dL
== END 2022-04-29 08:04 | disposition home or self-care (01) ==
PROVIDERS: PCP Emergency Medicine; Visit Provider Emergency Medicine
DX: R53.83 Other fatigue (principal); I10 Essential (primary) hypertension
CPT/HCPCS: 36415; 80053; 80061; 84443

== ENCOUNTER 2022-09-21 09:03 | Outpatient (CLI) | payer MEDICARE, SELFPAY ==
[2022-09-21 09:35] LABS: Alanine Aminotransferase 26 U/L (6-50); Albumin Level 3.9 g/dL (3.5-5.1); Alkaline Phosphatase 90 U/L (38-126); Anion Gap 7 mmol/L (8-16); Aspartate Amino Transferase 24 U/L (17-59); Bilirubin,Total 0.5 mg/dL (0.2-1.3); Blood Urea Nitrogen 22 mg/dL (9-20); Calcium 8.4 mg/dL (8.4-10.2); Carbon Dioxide 25 mmol/L (22-30); Chloride 104 mmol/L (98-107); Cholesterol 136 mg/dL (0-200); Estimated Glomerular Filt Rate 59; Glucose 98 mg/dL (65-110); HDL Direct 40 mg/dL; Sodium 136 mmol/L (137-145); Triglycerides 78 mg/dL (<150)
[2022-09-21 09:46] LABS: LDL Cholesterol Direct 73 mg/dL
[2022-09-21 10:03] LABS: Prostate Specific Antigen 2.5 ng/mL (< OR = 4.0)
== END 2022-09-21 09:04 | disposition home or self-care (01) ==
PROVIDERS: PCP Emergency Medicine; Visit Provider Emergency Medicine
DX: Z12.5 Encounter for screening for malignant neoplasm of prostate (principal); I10 Essential (primary) hypertension
CPT/HCPCS: 36415; 80053; 80061; 84153; G0103

== ENCOUNTER 2023-03-23 09:50 | Outpatient (CLI) | payer MEDICARE, SELFPAY ==
[2023-03-23 11:01] LABS: Alanine Aminotransferase 28 U/L (6-50); Albumin Level 3.9 g/dL (3.5-5.1); Alkaline Phosphatase 71 U/L (38-126); Anion Gap 5 mmol/L (8-16); Aspartate Amino Transferase 29 U/L (17-59); Bilirubin,Total 0.7 mg/dL (0.2-1.3); Blood Urea Nitrogen 23 mg/dL (9-20); Calcium 8.5 mg/dL (8.4-10.2); Carbon Dioxide 26 mmol/L (22-30); Chloride 105 mmol/L (98-107); Cholesterol 185 mg/dL (0-200); Estimated Glomerular Filt Rate > 60; Glucose 90 mg/dL (65-110); HDL Direct 43 mg/dL; Potassium 3.9 mmol/L (3.4-5.0); Sodium 136 mmol/L (137-145); Triglycerides 103 mg/dL (<150)
[2023-03-23 11:12] LABS: LDL Cholesterol Direct 115 mg/dL
== END 2023-03-23 09:51 | disposition home or self-care (01) ==
LOC: ANHLAB 09:52
PROVIDERS: PCP Emergency Medicine; Visit Provider Emergency Medicine
DX: E78.5 Hyperlipidemia, unspecified (principal); I10 Essential (primary) hypertension
CPT/HCPCS: 36415; 80053; 80061

== ENCOUNTER 2023-10-02 08:26 | Outpatient (CLI) | payer MEDICARE, SELFPAY ==
[2023-10-02 09:55] LABS: Alanine Aminotransferase 25 U/L (6-50); Albumin Level 3.8 g/dL (3.5-5.1); Alkaline Phosphatase 59 U/L (38-126); Anion Gap 9 mmol/L (8-16); Aspartate Amino Transferase 26 U/L (17-59); Bilirubin,Total 0.6 mg/dL (0.2-1.3); Blood Urea Nitrogen 29 mg/dL (9-20); Calcium 8.8 mg/dL (8.4-10.2); Carbon Dioxide 22 mmol/L (22-30); Chloride 105 mmol/L (98-107); Cholesterol 194 mg/dL (0-200); Estimated Glomerular Filt Rate > 60; Glucose 92 mg/dL (65-110); HDL Direct 44 mg/dL; Sodium 136 mmol/L (137-145); Triglycerides 106 mg/dL (<150)
[2023-10-02 10:06] LABS: LDL Cholesterol Direct 113 mg/dL
[2023-10-05 10:27] LABS: Vitamin D 1,25 (OH)2 Total 37 pg/mL (18-72); Vitamin D2 1,25 (OH)2 <8 pg/mL; Vitamin D3 1,25 (OH)2 37 pg/mL
== END 2023-10-02 08:27 | disposition home or self-care (01) ==
PROVIDERS: PCP Emergency Medicine; Visit Provider Emergency Medicine
DX: E78.5 Hyperlipidemia, unspecified (principal); E55.9 Vitamin D deficiency, unspecified
CPT/HCPCS: 36415; 80053; 80061; 82652

== ENCOUNTER 2024-02-07 13:23 | Emergency (ER) | payer MEDICARE, SELFPAY ==
--- NOTE | ~2024-02-07 | XR_ITS ---
EXAMINATION: XR soft tissue neck DATE: 02/07/2024 14:25 INDICATION: Foreign body sensation in the throat TECHNIQUE: AP and lateral views of the soft tissues of the neck were obtained COMPARISON: None. FINDINGS: Straightening of the cervical spine with moderate to severe spondylosis. Prevertebral soft tissues ar e normal. Normal epiglottis. Atherosclerotic calcifications at the left carotid bulb. No radiopaque f oreign bodies identified. Visualized apices of lungs are clear. IMPRESSION: 1. No evident radiopaque foreign bodies. 2. Moderate to severe cervical spondylosis. Reviewed, dictated and finalized at location A.
[2024-02-07 13:44] VITALS: BP 153/90; PULSE 94; RESP 20; TEMP 36.8; O2SAT 97
--- NOTE | 2024-02-07 13:45 | ED.GENADULT ---
HPI - General Adult General Chief complaint: Unspecified Stated complaint: Sinus Time Seen by Provider: 02/07/24 13:45 Source: patient Mode of arrival: ambulatory Limitations: no limitations History of Present Illness HPI narrative: 73 yo M presents with c/o sensation of FB in throat with swallowing. States only painful when swallowing. Feels like food gets stuck and has to swallow harder. similar symptoms with strep throat. would like strep test. Deneis N/V, fever. Has been fatigued. All systems reviewed and negative except as noted above. Related Data Home Medications Medication Instructions Recorded Confirmed adalimumab 40 mg/0.8 mL mg subcut 02/07/24 subcutaneous pen kit (Humira Pen) albuterol sulfate 90 mcg/actuation inhalation 02/07/24 aerosol inhaler budesonide-formoterol HFA 160 inhalation 02/07/24 mcg-4.5 mcg/actuation aerosol inhaler fluticasone propionate 50 intranasal 02/07/24 mcg/actuation nasal spray,suspension losartan 25 mg tablet mg 02/07/24 metoprolol succinate 100 mg mg PO 02/07/24 tablet,extended release 24 hr nitroglycerin 0.4 mg sublingual mg 02/07/24 tablet pantoprazole 40 mg tablet,delayed mg PO 02/07/24 release pravastatin 80 mg tablet mg 02/07/24 Allergies Allergy/AdvReac Type Severity Reaction Status Date / Time Sulfa (Sulfonamide Allergy Mild Hives Verified 02/07/24 13:29 Antibiotics) azathioprine Allergy Unknown Unknown Verified 02/07/24 13:29 sulfanilamide Allergy Unknown Unknown Verified 02/07/24 13:29 Review of Systems Review of Systems: CONSTITUTIONAL: Denies fever, chills, or sweats. EYES: Denies visual changes, redness, or discharge. ENT: Denies rhinorrhea, congestion, sore throat, or otalgia. Reports sensation foreign body in throat , pain with swallowing CARDIOVASCULAR: Denies chest pain, palpitations, or edema. RESPIRATORY: Denies cough or dyspnea. GASTROINTESTINAL: Denies abdominal pain, nausea, vomiting, or diarrhea. GENITOURINARY: Denies dysuria or hematuria. SKIN: Denies rash or itching. MUSCULOSKELETAL: Denies back pain, joint pain, or myalgia. NEUROLOGIC: Denies headache, numbness, or weakness. PSYCHIATRIC: Denies anxiety or depression. All other systems reviewed are negative, except as documented in HPI. [facility] Past Medical History Medical History (Updated 02/07/24 @ 14:53 by Sandy Velazquez NP) Asthma CAD (coronary artery disease) stent placed in Oct 2018 to the prox LAD GERD (gastroesophageal reflux disease) High risk medication use HTN (hypertension) Hypercholesterolemia Kidney stones Myocardial infarction Need for hepatitis B screening test TIA (transient ischemic attack) Ulcerative colitis Surgical History Surgical History History of heart artery stent Hx of sinus surgery Family History Family History Mother Hypertension DVT (deep venous thrombosis) Father Hypertension Heart disease Social History Social History Social History: Lives alone. . No children. Denies alcohol or drug use. He is a lifelong nonsmoker. He is a full code. He nominated Batsheva Paz to be the individual would be making decisions for him if he is unable. Smoking status: Never smoker Alcohol intake: never Substance use: never Lack of Transportation: No Lack of Food: Never True Current Housing: I Have Housing Concerned About Future Housing: No Difficulty Paying Gas/Electric Bills: No Difficulty Paying for Meds: No Education: High School Diploma/GED Difficulty w/ Childcare or Family Care: No Gender identity (if verbalized by the patient): Male Spiritual care concerns: No Comments At time of signature, agree with nursing past medical, surgical, social and family history. There is no relevant family history per
== END 2024-02-07 14:57 | disposition home or self-care (01) ==
PROVIDERS: Emergency Provider Nurse Practitioner Family; PCP Emergency Medicine
DX: R09.A2 Foreign body sensation, throat (principal); I25.10 Atherosclerotic heart disease of native coronary artery without angina pectoris; K21.9 Gastro-esophageal reflux disease without esophagitis; I10 Essential (primary) hypertension; E78.00 Pure hypercholesterolemia, unspecified; I25.2 Old myocardial infarction; Z86.73 Personal history of transient ischemic attack (TIA), and cerebral infarction without residual deficits; Z95.5 Presence of coronary angioplasty implant and graft
CPT/HCPCS: 70360; 87081; 87880; 99213; G0463

== ENCOUNTER 2024-03-28 13:55 | Outpatient (CLI) | payer MEDICARE, SELFPAY ==
[2024-03-28 14:17] LABS: Hematocrit 44.4 % (42.0-52.0); Hemoglobin 13.6 g/dL (14.0-18.0); Mean Corpuscular HGB Conc 30.6 g/dl (32-36); Mean Corpuscular Hemoglobin 23.5 pg (26-34); Mean Corpuscular Volume 76.8 fl (80-100); Mean Platelet Volume 11.2 fl (7.4-10.4); Platelet Count Result 264 k/mm3 (150-375); Red Blood Count 5.78 M/mm3 (4.6-6.20); Red Cell Distribution Width 18.4 % (11.5-14.5)
[2024-03-28 14:57] LABS: Erythrocyte Sedimentation Rate 15 mm/hr (0-20)
[2024-03-28 18:29] LABS: Alanine Aminotransferase 25 U/L (6-50); Albumin Level 4.1 g/dL (3.5-5.1); Alkaline Phosphatase 69 U/L (38-126); Anion Gap 9 mmol/L (4-12); Aspartate Amino Transferase 41 U/L (17-59); Bilirubin,Total 0.5 mg/dL (0.2-1.3); Blood Urea Nitrogen 20 mg/dL (9-20); Calcium 9.1 mg/dL (8.4-10.2); Carbon Dioxide 19 mmol/L (22-30); Chloride 110 mmol/L (98-107); Estimated Glomerular Filt Rate 59; Glucose 145 mg/dL (65-110); Potassium 4.4 mmol/L (3.4-5.0); Sodium 138 mmol/L (137-145)
[2024-04-02 12:18] LABS: NIL 0.04 IU/mL; Quantiferon TB Plus, 1T NEGATIVE (NEGATIVE); TB2-NIL <0.00 IU/mL
== END 2024-03-28 13:56 | disposition home or self-care (01) ==
PROVIDERS: PCP Emergency Medicine; Visit Provider Nurse Practitioner Family
DX: R21 Rash and other nonspecific skin eruption (principal); K51.90 Ulcerative colitis, unspecified, without complications; Z79.899 Other long term (current) drug therapy; Z11.59 Encounter for screening for other viral diseases
CPT/HCPCS: 36415; 80053; 85027; 85652; 86140; 86480

== ENCOUNTER 2024-04-08 11:01 | Outpatient (CLI) | payer MEDICARE, SELFPAY ==
--- NOTE | ~2024-04-08 | XR_ITS ---
Left wrist Technique: PA and lateral views were obtained. Clinical History: Injury Findings: No acute fracture or dislocation is seen. Osseous alignment is anatomic. Joint spaces are p reserved. Soft tissues are unremarkable. Impression: Unremarkable left wrist radiographs. Reviewed, dictated and finalized at location . Impression: Unremarkable left wrist radiographs.
== END 2024-04-08 11:02 | disposition home or self-care (01) ==
LOC: ANHIMG 11:01
PROVIDERS: PCP Emergency Medicine; Visit Provider Emergency Medicine
DX: M25.532 Pain in left wrist (principal); W22.8XXD Striking against or struck by other objects, subsequent encounter
CPT/HCPCS: 73100

== ENCOUNTER 2024-05-11 07:35 | Outpatient (CLI) | payer MEDICARE, SELFPAY ==
[2024-05-11 08:36] LABS: Alanine Aminotransferase 22 U/L (6-50); Alkaline Phosphatase 72 U/L (38-126); Anion Gap 8 mmol/L (4-12); Aspartate Amino Transferase 21 U/L (17-59); Bilirubin,Total 0.6 mg/dL (0.2-1.3); Blood Urea Nitrogen 22 mg/dL (9-20); Calcium 8.9 mg/dL (8.4-10.2); Carbon Dioxide 23 mmol/L (22-30); Chloride 107 mmol/L (98-107); Cholesterol 174 mg/dL (0-200); Estimated Glomerular Filt Rate > 60; Glucose 97 mg/dL (65-110); HDL Direct 45 mg/dL; Potassium 3.7 mmol/L (3.4-5.0); Sodium 138 mmol/L (137-145); Triglycerides 75 mg/dL (<150)
[2024-05-11 08:47] LABS: LDL Cholesterol Direct 114 mg/dL
[2024-05-11 09:07] LABS: Prostate Specific Antigen 2.7 ng/mL (< OR = 4.0)
[2024-05-11 09:13] LABS: Vitamin D 25 Hydroxy 33.1 ng/mL
== END 2024-05-11 07:36 | disposition home or self-care (01) ==
PROVIDERS: PCP Emergency Medicine; Visit Provider Emergency Medicine
DX: Z12.5 Encounter for screening for malignant neoplasm of prostate (principal); I10 Essential (primary) hypertension; E55.9 Vitamin D deficiency, unspecified
CPT/HCPCS: 36415; 80053; 80061; 82306; 84153; G0103

== ENCOUNTER 2024-06-21 14:26 | Outpatient (CLI) | payer MEDICARE, SELFPAY ==
--- NOTE | 2024-06-21 14:32 | ECHO_ITS ---
Patient Info Name: Arvind Pruett Age: 74 years : 1950 Gender: Male Ht: 64 in Wt: 205 lbs BSA: 2.09 m2 HR: 85 bpm BP: 139 / 89 mmHg Heart Rhythm: Sinus Rhythm Technical Quality: Fair Exam Date: 06/21/2024 2:40 PM Exam Location: Echo Lab Patient Status: Outpatient Admit Date: 06/21/2024 Staff Ordering Physician: Adolfo Fallon MD Fat Purification Worker: Radha Vasquez RDCS Attending Provider: Adolfo Fallon MD Referring Physician: Vasyl DENT; Exam Type: CA echo doppler color flow Study Info Indications - I25.10 Complete two-dimensional, color flow and Doppler transthoracic echocardiogram is performed. Summary 1. Complete two-dimensional, color flow and Doppler transthoracic echocardiogram is performed. 2. Normal left ventricular size, thickness and systolic function with grade 1 diastolic noncompliance. 3. Mildly calcified mitral valve annulus but no valvular dysfunction. Left Ventricle Left ventricular chamber dimension is normal. Left ventricular systolic function is normal, estimated at 60-65%. The left ventricular diastolic function is grade I diastolic dysfunction. Right Ventricle Right ventricular chamber dimension is normal. Left Atria Left atrial chamber dimension is normal. Right Atria Right atrial chamber dimension is normal. Aortic Valve The aortic valve is normal. Pulmonic Valve The pulmonic valve is normal. Mitral Valve The mitral valve has normal leaflets. The mitral valve annulus is mildly calcified. Tricuspid Valve The tricuspid valve leaflets are normal. Pericardium/Pleural The pericardium appears normal. Left Ventricular Outflow Tract Name Value Normal LVOT 2D LVOT Diameter 2.0 cm LVOT Doppler LVOT Peak Gradient 5 mmHg LVOT Mean Gradient 2 mmHg LVOT VTI 20 cm LVOT VTI/AV VTI Ratio 0.7 LVOT Stroke Volume 60 ml LVOT CO 4.7 l/min LVOT CI 2.2 l/min/m2 Pulmonic Valve Name Value Normal RVOT Doppler RVOT Peak Gradient 3 mmHg PV Doppler PV Peak Gradient 4 mmHg Mitral Valve Name Value Normal MV Doppler MV Decel [place] 485 cm/s2 MV PHT 46 ms MV Area (PHT) 4.7 cm2 4.0-5.0 MV Diastolic Function MV E Peak Velocity 78 cm/s MV A Peak Velocity
== END 2024-06-21 14:27 | disposition home or self-care (01) ==
PROVIDERS: PCP Emergency Medicine; Visit Provider Emergency Medicine
DX: I25.10 Atherosclerotic heart disease of native coronary artery without angina pectoris (principal); I34.81 Nonrheumatic mitral (valve) annulus calcification; G45.9 Transient cerebral ischemic attack, unspecified
CPT/HCPCS: 93306

== ENCOUNTER 2024-08-28 00:34 | Day surgery (SDC) | payer MEDICARE, SELFPAY ==
[2024-04-01 10:04] VITALS: BMI 34.4
[2024-08-07 09:02] VITALS: BMI 34.4
[2024-08-28 09:02] VITALS: BP 142/88; PULSE 123; RESP 18; TEMP 36.3; O2SAT 97; BMI 34.2
[2024-08-28] MEDS: LACTATED RINGERS 1,000 ML 150 ML IV CONT (09:06)
--- NOTE | 2024-08-28 09:38 | PM.HPGS ---
History of Present Illness History of Present Illness Consent: Risks, benefits, and alternatives have been discussed and questions answered. Patient agrees to proceed with procedure. Chief complaint: Ulcerative colitis Narrative: Arvind Pruett is a 74 year old male with UC for more than 12 years, he has been on humira for 5 years, on remission, also low dose prednisone. Last colonoscopy 2020 Review of Systems Review of Systems: All systems reviewed & are unremarkable except as noted in HPI and below PMFSH Past Medical History Medical History Asthma C. difficile colitis CAD (coronary artery disease) stent placed in Oct 2018 to the prox LAD CAD in [place] artery Chest pain on respiration Colitis, ulcerative chronic Epistaxis Folliculitis GERD (gastroesophageal reflux disease) High risk medication use HTN (hypertension) Hypercholesterolemia Kidney stones Low hemoglobin and low hematocrit Microcytic hypochromic anemia Myocardial infarction Need for hepatitis B screening test NSTEMI (non-ST elevated myocardial infarction) Oral thrush Rash Shortness of breath Status post myocardial infarction TIA (transient ischemic attack) Ulcerative colitis Ulcerative colitis, unspecified, without complications Unspecified asthma, uncomplicated URI with cough and congestion Vitamin D deficiency Weight gain Surgical History Surgical History History of heart artery stent Hx of sinus surgery Family History Family History Mother Hypertension DVT (deep venous thrombosis) Father Hypertension Heart disease Social History Social History Social History: Lives alone. . No children. Denies alcohol or drug use. He is a lifelong nonsmoker. He is a full code. He nominated Batsheva Paz to be the individual would be making decisions for him if he is unable. Smoking status: Never smoker Alcohol intake: never Substance use: never Substance use type: does not use Lack of Transportation: No Lack of Food: Never True Current Housing: I Have Housing Concerned About Future Housing: No Difficulty Paying Gas/Electric Bills: No Difficulty Paying for Meds: No Education: High School Diploma/GED Difficulty w/ Childcare or Family Care: No Living arrangements: alone Gender identity (if verbalized by the patient): Male Spiritual care concerns: No Meds Home Medications and Allergies Home Medications Medication Instructions Recorded Confirmed Type budesonide-formoterol HFA 160 1 puff inhalation DAILY 02/07/24 08/28/24 History mcg-4.5 mcg/actuation aerosol inhaler fluticasone propionate 50 50 mcg intranasal DAILY 02/07/24 08/28/24 History mcg/actuation nasal spray,suspension metoprolol succinate 100 mg 100 mg PO DAILY 02/07/24 08/28/24 History tablet,extended release 24 hr nitroglycerin 0.4 mg sublingual 0.4 mg sublingual DAILY PRN Chest 02/07/24 08/28/24 History tablet Pain prednisone 5 mg tablet 5 mg PO DAILY 1 month #30 tabs 02/09/24 08/28/24 Rx adalimumab 40 mg/0.8 mL 40 mg (0.8 mL) subcut Q14D 3 03/13/24 08/28/24 Rx subcutaneous pen kit (Humira Pen) months #6 ea pantoprazole 40 mg tablet,delayed See Rx Instructions .Route 04/04/24 08/28/24 Rx release .COMPLEX #90 tabs albuterol sulfate 90 mcg/actuation See Rx Instructions .Route 06/27/24 08/28/24 Rx aerosol inhaler .COMPLEX #8.5 ea aspirin 81 mg tablet,delayed 81 mg PO DAILY PRN Pain, Mild 08/07/24 08/28/24 History release Allergies Allergy/AdvReac Type Severity Reaction Status Date / Time Sulfa (Sulfonamide Allergy Mild Hives Verified 08/07/24 08:54 Antibiotics) azathioprine Allergy Unknown Unknown Verified 08/07/24 08:54 sulfanilamide Allergy Unknown Unknown Verified
--- NOTE | 2024-08-28 09:44 | WPDANESEPPF ---
Anes - Initial Pre Proc Eval Procedure: Operation Date: 08/28/24 10:30 Proposed Procedures p Colonoscopy - Gurinder Wallace MD Date/Time: 08/28/24 09:44 Surgeon: Gurinder Wallace MD Pre Op Diagnosis: Ulcerative colitis Patient Data Age: 74 Gender: M Height: 1.63 m Weight: 90.4 kg Last Vital Signs Temp 97.4 F L 08/28/24 09:02 Pulse 123 H 08/28/24 09:02 Resp 18 08/28/24 09:02 BP 142/88 H 08/28/24 09:02 Pulse Ox 97 08/28/24 09:02 O2 Del Method Room Air 08/28/24 09:02 Allergies Allergy/AdvReac Type Severity Reaction Status Date / Time Sulfa (Sulfonamide Allergy Mild Hives Verified 08/07/24 08:54 Antibiotics) azathioprine Allergy Unknown Unknown Verified 08/07/24 08:54 sulfanilamide Allergy Unknown Unknown Verified 08/07/24 08:54 Home Medications Medication Instructions Recorded Confirmed Type budesonide-formoterol HFA 160 1 puff inhalation DAILY 02/07/24 08/28/24 History mcg-4.5 mcg/actuation aerosol inhaler fluticasone propionate 50 50 mcg intranasal DAILY 02/07/24 08/28/24 History mcg/actuation nasal spray,suspension metoprolol succinate 100 mg 100 mg PO DAILY 02/07/24 08/28/24 History tablet,extended release 24 hr nitroglycerin 0.4 mg sublingual 0.4 mg sublingual DAILY PRN Chest 02/07/24 08/28/24 History tablet Pain prednisone 5 mg tablet 5 mg PO DAILY 1 month #30 tabs 02/09/24 08/28/24 Rx adalimumab 40 mg/0.8 mL 40 mg (0.8 mL) subcut Q14D 3 03/13/24 08/28/24 Rx subcutaneous pen kit (Humira Pen) months #6 ea pantoprazole 40 mg tablet,delayed See Rx Instructions .Route 04/04/24 08/28/24 Rx release .COMPLEX #90 tabs albuterol sulfate 90 mcg/actuation See Rx Instructions .Route 06/27/24 08/28/24 Rx aerosol inhaler .COMPLEX #8.5 ea aspirin 81 mg tablet,delayed 81 mg PO DAILY PRN Pain, Mild 08/07/24 08/28/24 History release Patient hx anesthesia problems: none Family hx anesthesia problems: none Results Review: All pre-operative results and documents have been reviewed as part of the pre-operative evaluation. [facility] Past Medical History Medical History Asthma C. difficile colitis CAD (coronary artery disease) stent placed in Oct 2018 to the prox LAD CAD in [place] artery Chest pain on respiration Colitis, ulcerative chronic Epistaxis Folliculitis GERD (gastroesophageal reflux disease) High risk medication use HTN (hypertension) Hypercholesterolemia Kidney stones Low hemoglobin and low hematocrit Microcytic hypochromic anemia Myocardial infarction Need for hepatitis B screening test NSTEMI (non-ST elevated myocardial infarction) Oral thrush Rash Shortness of breath Status post myocardial infarction TIA (transient ischemic attack) Ulcerative colitis Ulcerative colitis, unspecified, without complications Unspecified asthma, uncomplicated URI with cough and congestion Vitamin D deficiency Weight gain Surgical History Surgical History History of heart artery stent Hx of sinus surgery Family History Family History Mother Hypertension DVT (deep venous thrombosis) Father Hypertension Heart disease Social History Social History Social History: Lives alone. . No children. Denies alcohol or drug use. He is a lifelong nonsmoker. He is a full code. He nominated Batsheva Paz to be the individual would be making decisions for him if he is unable. Smoking status: Never smoker Alcohol intake: never Substance use: never Substance use type: does not use Lack of Transportation: No Lack of Food: Never True Current Housing: I Have Housing Concerned About Future Housing: No Difficulty Paying Gas/Electric Bills: No Difficulty Paying for Meds: No Ed
[2024-08-28] MEDS: METHYLENE BLUE 0.5% INJ 10 ML AMPULE 20 ML IRRIGATION (09:57)
[2024-08-28 10:46] VITALS: BP 100/76; PULSE 74; RESP 25; TEMP 36.1; O2SAT 91
[2024-08-28 10:56] VITALS: BP 126/87; PULSE 93; RESP 20; O2SAT 97
[2024-08-28 11:06] VITALS: BP 130/85; PULSE 94; RESP 21; O2SAT 94
--- NOTE | 2024-08-28 13:29 | SUR.PREOP ---
pts heart rate on admission was 120s-130s. pt placed on monitor, rhythym is sinus tach. pt takes metoprolol 100mg qd but states did not take it for the last two daysyaron aviles crna and dr monroy made aware.
== END 2024-08-28 11:28 | disposition home or self-care (01) ==
PROVIDERS: PCP Emergency Medicine; Visit Provider Internal Medicine Gastroenterology
PROC: 0DJD8ZZ Inspection of Lower Intestinal Tract, Via Natural or Artificial Opening Endoscopic (ICD-10-PCS; CPT 45378; principal; 2024-08-28 10:30)
DX: K51.90 Ulcerative colitis, unspecified, without complications (principal); D12.2 Benign neoplasm of ascending colon; D12.3 Benign neoplasm of transverse colon; K57.30 Diverticulosis of large intestine without perforation or abscess without bleeding; K64.8 Other hemorrhoids; I10 Essential (primary) hypertension; I25.10 Atherosclerotic heart disease of native coronary artery without angina pectoris; I25.2 Old myocardial infarction; J45.909 Unspecified asthma, uncomplicated; K21.9 Gastro-esophageal reflux disease without esophagitis; E78.00 Pure hypercholesterolemia, unspecified; D50.9 Iron deficiency anemia, unspecified; E55.9 Vitamin D deficiency, unspecified; Z86.73 Personal history of transient ischemic attack (TIA), and cerebral infarction without residual deficits; Z79.51 Long term (current) use of inhaled steroids; Z79.620 Long term (current) use of immunosuppressive biologic; Z79.82 Long term (current) use of aspirin; Z95.5 Presence of coronary angioplasty implant and graft; E66.9 Obesity, unspecified; Z68.34 Body mass index [BMI] 34.0-34.9, adult; Z79.52 Long term (current) use of systemic steroids
CPT/HCPCS: 45385; 45381; 45380; 88305; J1100; J2003; J2405; J2704; J7120; Q9968

== ENCOUNTER 2025-02-17 13:25 | Outpatient (CLI) | payer MEDICARE, SELFPAY ==
[2025-02-17 14:20] LABS: Hematocrit 44.8 % (42.0-52.0); Mean Corpuscular HGB Conc 31.3 g/dl (32-36); Mean Corpuscular Hemoglobin 24.6 pg (26-34); Mean Corpuscular Volume 78.7 fl (80-100); Mean Platelet Volume 11.8 fl (7.4-10.4); Platelet Count Result 231 k/mm3 (150-375); Red Blood Count 5.69 M/mm3 (4.6-6.20); Red Cell Distribution Width 16.4 % (11.5-14.5); White Blood Count 10.8 K/mm3 (4.5-10.0)
[2025-02-17 14:39] LABS: Alanine Aminotransferase 26 U/L (6-50); Albumin Level 4.1 g/dL (3.5-5.1); Alkaline Phosphatase 72 U/L (38-126); Anion Gap 9 mmol/L (4-12); Aspartate Amino Transferase 23 U/L (17-59); Bilirubin,Total 0.5 mg/dL (0.2-1.3); Blood Urea Nitrogen 20 mg/dL (9-20); CRP 1.1 mg/dL (<1.0); Calcium 8.9 mg/dL (8.4-10.2); Carbon Dioxide 22 mmol/L (22-30); Chloride 104 mmol/L (98-107); Estimated Glomerular Filt Rate > 60; Glucose 101 mg/dL (65-110); Potassium 4.1 mmol/L (3.4-5.0); Sodium 135 mmol/L (137-145)
--- OUTSIDE RECORDS SUMMARY | 2025-02-17 14:43 | XMS_ITS | Encounter Summary ---
Author Organization [facility] Address [address] [address] Care Team Providers Care Client Business Manager Name Role Phone Adolfo Fallon MD Primary Care Provide r Encounter Details Date Type Department Care Team (Late st Contact Info) Description 04/12/2017 Orders Only [facility] ProviderKristy MD [address] [place] [id number] Social History Tobacco Use Types Packs/Day Years Used Date Smoking Tobacco: Never Alcohol Use Standard Drinks/Week Comments No 0 (1 standard drink = 0.6 oz pur e alcohol) Sex and Gender Information Value Date Recorded Sex Assigned at Not on file 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 Historical Provider [facility] SHERIF MURDOCK Final Result documented in this encounter Visit Diagnoses Not on filedocumented in this encounter Care Teams Client Business Manager Relationship Specialty Start Date End Date Adolfo Fallon MD [address] [place] [address] PCP - General 02/28/17 documented as of this encounter
--- OUTSIDE RECORDS SUMMARY | 2025-02-17 14:43 | XMS_ITS | Clinical Summary ---
Author Organization [facility] [address] Address [address] [place] [address] Care Team Providers Care Software Engineer Developer Name Role Phone Adolfo Fallon MD Primary Care Provide r Allergies Active Allergy Reactions Criticality Noted Date Comments Amlodipine Rash Medium 09/21/2020 Atorvastatin Nausea only,Vomiting Medium Reaction: nausea, vomiting, Rosuvastatin Nausea only Low 08/15/2023 Sulfa (Sulfonamide Antibiotics) Other (See comments) High Reaction: unknown, Medications budesonide-form oterol (SYMBICORT) 160-4.5 mcg/actuation inhaler inhale 2 puff by inhalation route 2 times every day in the morning and evening 0 Inhaler 0 7 Active albuterol HFA (PROVENTIL HFA) 90 mcg/actuation inhaler inhale 2 puff by inhalation route every 4 - 6 hours as needed 0 Inhaler 0 7 Active adalimumab (HUMIRA, CF, SYRINGE) 40 mg/0.4 mL syringe kit Inject under the skin. Active fluticasone propionate (FLONASE) 50 mcg/actuation nasal spray SPRAY 1 SPRAY IN EACH NOSTRIL ONCE DAILY 9 Active cholecalciferol (VITAMIN D-3) 3,000 unit tablet Take 0.3333 tablets (1,000 Units total) by mouth daily Active predniSONE (DELTASONE) 5 mg tablet daily 1 Active [employer] misc [address] (PROTONIX) 40 mg EC tablet 1 Active aspirin 81 mg enteric coated tabletIndicatio ns:Coronary artery disease involving [place] coronary artery of [place] heart without angina pectoris Take 1 tablet (81 mg total) by mouth daily 30 tablet 11 2 Active nitroglycerin (NITROSTAT) 0.4 mg SL tabletIndicatio ns:Coronary artery disease involving [place] coronary artery of [place] heart without angina pectoris Place 1 tablet (0.4 mg total) under the tongue every 5 (five) minutes as needed for chest pain 25 tablet 3 3 Active metoprolol XL (TOPROL-XL) 100 mg 24 hr tabletIndicatio ns:Coronary artery disease involving [place] coronary artery of [place] heart without angina pectoris,Non-ST elevation (NSTEMI) myocardial infarction (HCC) TAKE 1 TABLET BY MOUTH EVERY DAY 90 tablet 2 5 Active Active Problems Problem Noted Date Diagnosed Date Right leg pain 04/10/2023 Class 2 severe obesity with serious comorbidity in adult 04/10/2023 History of pulmonary embolism 03/30/2022 History of COVID-19 09/29/2021 H/O: GI bleed 10/30/2019 H/O cardiomyopathy 10/30/2019 Chronic fatigue 10/30/2019 Asthma 04/04/2019 S/P drug eluting coronary stent placement 2018 Coronary artery disease invo lving [place] coronary artery of [place] heart without angina pectoris 12/19/2018 Mixed hyperlipidemia 12/19/2018 Essential hypertension 04/12/2017 Overview (04/14/2017): HTN (hypertension), benign Ulcerative colitis 04/12/2017 Overview (04/14/2017): Ulcerative colitis with rectal bleeding, unspecified location Resolved Problems Problem Noted Date Diagnosed Date Resolved Date Pulmonary embolism without a cute cor pulmonale 10/09/2021 03/30/2022 Rash 10/30/2019 03/30/2022 Cardiomyopathy, ischemic 12/19/201809/2019 Fast heart beat 04/12/2017 03/30/2022 Overview (04/14/2017): Tachycardia Drug intolerance 04/12/2017 03/30/2022 Overview (04/14/2017): Medication intolerance Elevated troponin I level 04/12/2017 Overview (04/14/2017): Elevated troponin I level Non-ST elevation (NSTEMI) my ocardial infarction 04/12/2017 02/09/2024 Overview (04/14/2017): NSTEMI (non-ST elevated myocardial infarction) Right fascicular block 04/12/201703/30 Overview (04/14/2017): RBBB Medical History Medical History Date Comments Calculus of kidney Kidney stone Airway hyperreactivity Asthma Ulcerative lesion Ulcer Hypertension High blood press ure Pancreatitis Coronary artery disease Pneumonia due to COVID-19 virus 10/09/2021 Pulmonary embolism (HCC) 10/09/2021 Family History Medical History Relation Name Comments Other Father 2 Aneurysm of tho racic aorta; Cause of : Aneurysm of thoracic aorta Heart attack Mother 2 Myocardial infa rction; Cause of : Myocardial infarction Relation Name Status Comments Father 1 (Age 48) Father 2 Mother 1 (Age 68) Mother 2 Social History Tobacco Use Types Packs/Day Years Used Date Smoking Tobacco: Never Smokeless Tobacco: Never Tobacco Cessation:Counseling Given: Not Answered Alcohol Use Standard Drinks/Week Comments No 0 (1 standard drink = 0.6 oz pur e alcohol) Personal Safety Answer Date Recorded Getting School Help Needed Not on file 01/19 Sex and Gender Information Value Date Recorded Sex Assigned at Not on file 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 Gender Identity Not on file Sexual Orientation Not on file Obstetrics History Last Filed Vital Signs Vital Sign Reading Time Taken Comments Blood Pressure 134/82 07/05/2024 1:30 PM CDT Pulse 82 07/05/2024 1:30 PM CDT Temperature - - Respiratory Rate - - Oxygen Saturation 97% 07/05/2024 1:30 PM CDT Inhaled Oxygen Concentration - - Weight 91.9 kg (202 lb 9.6 oz) 07/05/2024 1:30 P M CDT Height 162.6 cm (5' 4 ) 07/05/2024 1:30 PM CDT Body Mass Index 34.78 07/05/2024 1:30 PM CDT Plan of Treatment Health Maintenance Due Date Last Done Comments Depression Screening 1948 Fall Risk Assessment 1950 Hepatitis C Screening 1948 DTaP/Tdap/Td Vaccine (1 - Tdap) 1959 Hepatitis B Screening 1966 Pneumococcal vaccine 65+ (1 of 2 - PCV) 1967 Zoster Vaccine (1 of 2) 1998 Well Visit 65+ 2013 Influenza Vaccine (#1) 2024 Insurance MEDICARE T MEDICARE Care Teams Software Engineer Developer Relationship Specialty Start Date End Date Adolfo Fallon MD [address] [place] [address] PCP - General 02/28/17
--- OUTSIDE RECORDS SUMMARY | 2025-02-17 14:43 | XMS_ITS | Referral Summary ---
Author Organization [facility] [address] Address [address] [place] [address] Care Team Providers Care Chairman Ceo Name Role Phone Adolfo Fallon MD Primary [...] enteric coated tabletIndicatio ns:Coronary artery disease involving [place] coronary artery of [place] heart without angina pectoris Take 1 tablet (81 mg total) by mouth daily 30 tablet 11 2 Active nitroglycerin (NITROSTAT) 0.4 mg SL tabletIndicatio ns:Coronary artery disease involving [place] coronary artery of [place] heart without angina pectoris Place 1 tablet (0.4 mg total) under the tongue every 5 (five) minutes as needed for chest pain 25 tablet 3 3 Active metoprolol XL (TOPROL-XL) 100 mg 24 hr tabletIndicatio ns:Coronary artery disease involving [place] coronary artery of [place] heart without angina pectoris,Non-ST elevation (NSTEMI) myocardial [...] placement 2018 Coronary artery disease invo lving [place] coronary artery of [place] heart without angina pectoris 12/19/2018 Mixed hyperlipidemia [...] Right fascicular block 04/12/201703/30 Overview (04/14/2017): RBBB Social History Tobacco Use Types Packs/Day Years [...] on file 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
== END 2025-02-17 13:26 | disposition home or self-care (01) ==
PROVIDERS: PCP Emergency Medicine; Visit Provider Nurse Practitioner Family
DX: K51.919 Ulcerative colitis, unspecified with unspecified complications (principal); D12.6 Benign neoplasm of colon, unspecified
CPT/HCPCS: 36415; 80053; 85027; 86140

== ENCOUNTER 2025-03-26 09:31 | Outpatient (CLI) | payer MEDICARE, SELFPAY ==
--- OUTSIDE RECORDS SUMMARY | 2025-03-26 09:54 | XMS_ITS | Clinical Summary ---
Author Organization [facility] [address] Address [address] [place] [address] Care Team Providers Care End Worker Name Role Phone Adolfo Fallon MD Primary Care Provide r Allergies Active Allergy Reactions Criticality Noted Date Comments Amlodipine Rash Medium 09/21/2020 Atorvastatin Nausea only,Vomiting Medium Reaction: nausea, vomiting, Rosuvastatin Nausea only Low 08/15/2023 Sulfa (Sulfonamide Antibiotics) Other (See comments) High Reaction: unknown, Medications budesonide-for moterol (SYMBICORT) 160-4.5 mcg/actuation inhaler inhale 2 puff by inhalation route 2 times every day in the morning and evening 0 Inhaler 0 7 Active albuterol HFA (PROVENTIL HFA) 90 mcg/actuation inhaler inhale 2 puff by inhalation route every 4 - 6 hours as needed 0 Inhaler 0 7 Active fluticasone propionate (FLONASE) 50 mcg/actuation nasal spray SPRAY 1 SPRAY IN EACH NOSTRIL ONCE DAILY 9 Active cholecalcifero l (VITAMIN D-3) 3,000 unit tablet Take 0.3333 tablets (1,000 Units total) by mouth daily Active predniSONE (DELTASONE) 5 mg tablet daily 1 Active [employer] misc [address] (PROTONIX) 40 mg EC tablet 1 Active aspirin 81 mg enteric coated tabletIndicati ons:Coronary artery disease involving [place] coronary artery of [place] heart without angina pectoris Take 1 tablet (81 mg total) by mouth daily 30 tablet 11 2 Active nitroglycerin (NITROSTAT) 0.4 mg SL tabletIndicati ons:Coronary artery disease involving [place] coronary artery of [place] heart without angina pectoris Place 1 tablet (0.4 mg total) under the tongue every 5 (five) minutes as needed for chest pain 25 tablet 3 3 Active metoprolol XL (TOPROL-XL) 100 mg 24 hr tabletIndicati ons:Coronary artery disease involving [place] coronary artery of [place] heart without angina pectoris,Non-S T elevation (NSTEMI) myocardial infarction (HCC) TAKE 1 TABLET BY MOUTH EVERY DAY 90 tablet 2 5 Active Humira Pen 40 mg/0.8 mL pen injector kit Inject 0.8 mL (40 mg total) under the skin every 14 (fourteen) days 5 Active adalimumab (HUMIRA, CF, SYRINGE) 40 mg/0.4 mL syringe kit Inject under the skin. 03/17/20 25 Discontinu ed(Alterna te therapy) Active Problems Problem Noted Date Diagnosed Date Right leg pain 04/10/2023 Class 2 severe obesity with serious comorbidity in adult 04/10/2023 History of pulmonary embolism 03/30/2022 History of COVID-19 09/29/2021 H/O: GI bleed 10/30/2019 H/O cardiomyopathy 10/30/2019 Chronic fatigue 10/30/2019 Asthma 04/04/2019 S/P drug eluting coronary stent placement 2018 Coronary artery disease invo lving [place] coronary artery of [place] heart without angina pectoris 12/19/2018 Mixed hyperlipidemia [...] Right fascicular block 04/12/201703/30 Overview (04/14/2017): RBBB Encounters Date Type Department Care Team Description 03/17/2025 2:00 PM CDT Office Visit [facility] Cardiology [address] [place] [address] Mandi Medina NP Coronary artery disease involving [place] coronary artery of [place] heart without angina pectoris; Lipid screening; Statin intolerance; H/O cardiomyopathy; Essential hypertension from Last 3 Months Medical History Medical History Date Comments Calculus [...] on file 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 Gender Identity Not on file Sexual Orientation Not on file Obstetrics History Last Filed Vital Signs Vital Sign Reading Time Taken Comments Blood Pressure 132/80 03/17/2025 2:22 PM CDT Pulse 94 03/17/2025 2:00 PM CDT Temperature - - Respiratory Rate - - Oxygen Saturation 95% 03/17/2025 2:00 PM CDT Inhaled Oxygen Concentration - - Weight 96.6 kg (213 lb) 03/17/2025 2:00 PM CDT Height 162.6 cm (5' 4 ) 03/17/2025 2:00 PM CDT Body Mass Index 36.56 03/17/2025 2:00 PM CDT Plan of Treatment Health Maintenance Due Date Last Done Comments Depression Screening 1948 Fall Risk Assessment 1948 Hepatitis C Screening 1948 DTaP/Tdap/Td Vaccine (1 - Tdap) 1959 Hepatitis B Screening 1966 Pneumococcal vaccine 65+ (1 of 2 - PCV) 1967 Zoster Vaccine (1 of 2) 1998 Well Visit 65+ 2013 Influenza Vaccine (Season Ended) 2025 Procedures Procedure Name Priority Date/Time Associated Diagnosis Comments POCT LIPID PANEL Routine 03/17/2025 2:07 PM CDT Lipid screening from Last 3 Months Results * POCT lipid panel (03/17/2025 2:07 PM CDT) Cholesterol, POC 183 mg/dL HDL, POC 50 mg/dL Triglycerides, POC 94 mg/dL LDL Cholesterol POC 114 mg/dL Chol/HDL Ratio, POC 2.3 Non-HDL Cholesterol, POC 133 mg/dL Cholesterol Total, POC 183 mg/dL Capillary blood 03/17/2025 2 :07 PM CDT Mandi Medina NP POINT OF CARE TEST ORDERA BLES Final Result from Last 3 Months Insurance [employer] MEDICARE [facility] Address: [facility] [id number] [place] [address] T MEDICARE Care Teams End Worker Relationship Specialty Start Date End Date Adolfo Fallon MD [address] [place] [address] PCP - General 02/28/17
--- OUTSIDE RECORDS SUMMARY | 2025-03-26 09:54 | XMS_ITS | Referral Summary ---
Author Organization [facility] [place] [address] [place] [address] [address] [place] [address] Care Team Providers Care Clerical Clerk Name Role Phone Adlofo Fallon MD Primary Care Provide r Encounters Date Type Department Care Team Description 03/17/2025 2:00 PM CDT Office Visit [facility] Cardiology [address] [facility] [address] [place] [address] Mandi Medina NP Coronary artery disease involving [place] coronary artery of [place] heart without angina pectoris; Lipid screening; Statin intolerance; H/O cardiomyopathy; Essential hypertension from Last 3 Months Allergies Active Allergy Reactions Criticality Noted Date [...] enteric coated tabletIndicati ons:Coronary artery disease involving [place] coronary artery of [place] heart without angina pectoris Take 1 tablet (81 mg total) by mouth daily 30 tablet 11 2 Active nitroglycerin (NITROSTAT) 0.4 mg SL tabletIndicati ons:Coronary artery disease involving [place] coronary artery of [place] heart without angina pectoris Place 1 tablet (0.4 mg total) under the tongue every 5 (five) minutes as needed for chest pain 25 tablet 3 3 Active metoprolol XL (TOPROL-XL) 100 mg 24 hr tabletIndicati ons:Coronary artery disease involving [place] coronary artery of [place] heart without angina pectoris,Non-S T elevation (NSTEMI) [...] placement 2018 Coronary artery disease invo lving [place] coronary artery of [place] heart without angina pectoris 12/19/2018 Mixed hyperlipidemia [...] on file 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
--- OUTSIDE RECORDS SUMMARY | 2025-03-26 09:54 | XMS_ITS | Encounter Summary ---
Author Organization [facility] Address [address] [facility] [address] [place] [address] Care Team Providers Care Educational Resource Coordinator Name Role Phone Adolfo Fallon MD Primary Care Provide r Encounter Details Date Type Department Care Team (Late st Contact Info) Description 04/12/2017 Orders Only [facility] ProviderKristy MD [address] [place] [address] Social History Tobacco Use Types Packs/Day Years Used Date Smoking Tobacco: Never Alcohol Use Standard Drinks/Week Comments No 0 (1 standard drink = 0.6 oz pur e alcohol) Sex and Gender Information Value Date Recorded Sex Assigned at Not on file 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
[2025-03-26 10:28] LABS: Alanine Aminotransferase 25 U/L (6-50); Albumin Level 3.9 g/dL (3.5-5.1); Alkaline Phosphatase 70 U/L (38-126); Anion Gap 6 mmol/L (4-12); Aspartate Amino Transferase 23 U/L (17-59); Bilirubin,Total 0.6 mg/dL (0.2-1.3); Blood Urea Nitrogen 17 mg/dL (9-20); Calcium 8.8 mg/dL (8.4-10.2); Carbon Dioxide 24 mmol/L (22-30); Chloride 106 mmol/L (98-107); Cholesterol 206 mg/dL (0-200); Estimated Glomerular Filt Rate > 60; Glucose 97 mg/dL (65-110); HDL Direct 46 mg/dL; Potassium 4.1 mmol/L (3.4-5.0); Sodium 136 mmol/L (137-145); Triglycerides 98 mg/dL (<150)
[2025-03-26 10:39] LABS: LDL Cholesterol Direct 121 mg/dL
[2025-03-26 10:48] LABS: Vitamin D 25 Hydroxy 34.6 ng/mL
== END 2025-03-26 09:32 | disposition home or self-care (01) ==
PROVIDERS: PCP Emergency Medicine; Visit Provider Emergency Medicine
DX: E78.5 Hyperlipidemia, unspecified (principal); E55.9 Vitamin D deficiency, unspecified
CPT/HCPCS: 36415; 80053; 80061; 82306

== ENCOUNTER 2025-08-13 14:07 | Outpatient (CLI) | payer MEDICARE, SELFPAY ==
--- NOTE | ~2025-08-13 | US_ITS ---
EXAMINATION: US venous doppler LE , 08/13/2025 14:50 CDT HISTORY: r/o DVT Comparison: None Technique: [place]-scale and color Doppler images were attempted of the lower saphenofemoral junction, common femoral vein,superficial femoral vein, proximal deep femoral vein, proximal deep femoral vein, popliteal vein and posterior tibial veins. Findings: Deep Venous System:There is thrombus with diminished flow in the superficial femoral vein, popliteal vein, posterior tibial and peroneal veins. Superficial Venous SystemNo superficial thrombophlebitis. Soft tissues: Soft tissues are unremarkable. Impression: Extensive left-sided DVT Reviewed, dictated and finalized at location A. Impression: Extensive left-sided DVT
--- OUTSIDE RECORDS SUMMARY | 2025-08-13 14:12 | XMS_ITS | Clinical Summary ---
Author Organization [facility] [address] Address [address] [place] [address] Care Team Providers Care Remote Recruiter Name Role Phone Adolfo Fallon MD Primary [...] coated tabletIndicatio ns:Coronary artery disease involving [place] coronary artery of [place] heart without angina pectoris Take 1 tablet (81 mg total) by mouth daily 30 tablet 11 2 Active nitroglycerin (NITROSTAT) 0.4 mg SL tabletIndicatio ns:Coronary artery disease involving [place] coronary artery of [place] heart without angina pectoris Place 1 tablet (0.4 mg total) under the tongue every 5 (five) minutes as needed for chest pain 25 tablet 3 3 Active metoprolol XL (TOPROL-XL) 100 mg 24 hr tabletIndicatio ns:Coronary artery disease involving [place] coronary artery of [place] heart without angina pectoris,Non-ST elevation (NSTEMI) myocardial infarction (HCC) TAKE 1 TABLET BY MOUTH EVERY DAY 90 tablet 2 5 Active Humira Pen 40 mg/0.8 mL pen injector kit Inject 0.8 mL (40 mg total) under the skin every 14 (fourteen) days 5 Active Active Problems Problem Noted Date Diagnosed Date Right leg pain 04/10/2023 Class 2 severe obesity with serious comorbidity in adult 04/10/2023 History of pulmonary embolism 03/30/2022 History of COVID-19 09/29/2021 H/O: GI bleed 10/30/2019 H/O cardiomyopathy 10/30/2019 Chronic fatigue 10/30/2019 Asthma 04/04/2019 S/P drug eluting coronary stent placement 2018 Coronary artery disease invo lving [place] coronary artery of [place] heart without angina pectoris 12/19/2018 Mixed hyperlipidemia [...] due to COVID-19 virus 10/09/2021 Pulmonary embolism 10/09/2021 Family History Medical History Relation Name [...] on file 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
--- OUTSIDE RECORDS SUMMARY | 2025-08-13 14:12 | XMS_ITS | Encounter Summary ---
Author Organization [facility] Address [address] [facility] [address] [place] [address] Care Team Providers Care Iridologist Name Role Phone Adolfo Fallon MD Primary Care Provide r Encounter Details Date Type Department Care Team (Late st Contact Info) Description 04/12/2017 Orders Only [facility] ProviderKristy MD [address] [place] [address] Social History Tobacco Use Types Packs/Day Years Used Date Smoking Tobacco: Never Alcohol Use Standard Drinks/Week Comments No 0 (1 standard drink = 0.6 oz pur e alcohol) Sex and Gender Information Value Date Recorded Sex Assigned at Not on file 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
[2025-08-13 14:43] LABS: Hematocrit 46.1 % (42.0-52.0); Hemoglobin 14.7 g/dL (14.0-18.0); Mean Corpuscular HGB Conc 31.9 g/dl (32-36); Mean Corpuscular Hemoglobin 26.0 pg (26-34); Mean Corpuscular Volume 81.4 fl (80-100); Platelet Count Result 221 k/mm3 (150-375); Red Blood Count 5.66 M/mm3 (4.6-6.20); White Blood Count 8.6 K/mm3 (4.5-10.0)
[2025-08-13 15:48] LABS: Alanine Aminotransferase 27 U/L (6-50); Albumin Level 4.1 g/dL (3.5-5.1); Alkaline Phosphatase 78 U/L (38-126); Anion Gap 5 mmol/L (4-12); Aspartate Amino Transferase 33 U/L (17-59); Bilirubin,Total 0.5 mg/dL (0.2-1.3); Blood Urea Nitrogen 20 mg/dL (9-20); CRP 1.5 mg/dL (<1.0); Calcium 9.0 mg/dL (8.4-10.2); Carbon Dioxide 23 mmol/L (22-30); Chloride 105 mmol/L (98-107); Estimated Glomerular Filt Rate > 60; Glucose 121 mg/dL (65-110); Potassium 4.5 mmol/L (3.4-5.0); Sodium 133 mmol/L (137-145); Total Protein 7.5 g/dL (6.3-8.2)
== END 2025-08-13 14:08 | disposition home or self-care (01) ==
PROVIDERS: PCP Emergency Medicine; Visit Provider Nurse Practitioner Family
DX: I82.402 Acute embolism and thrombosis of unspecified deep veins of left lower extremity (principal); K51.919 Ulcerative colitis, unspecified with unspecified complications; R60.0 Localized edema
CPT/HCPCS: 36415; 80053; 85027; 85380; 85652; 86140; 86480; 93971

== ENCOUNTER 2025-08-13 15:49 | Inpatient (IN) | payer MEDICARE, SELFPAY ==
[2025-08-13] VITALS (16 sets, daily range): BP systolic 142–210; BP diastolic 87–111; PULSE 101–122; RESP 13–21; TEMP 36.6–36.7; O2SAT 92–100; BMI 36.4
--- NOTE | ~2025-08-13 | CT_ITS ---
EXAMINATION: CTA chest PE protocol DATE: 08/13/2025 17:45 CDT INDICATION: Pulmonary embolism TECHNIQUE: Computed tomographic angiography (CTA) of the chest was performed with 100 mL Omnipaque-350 intravenous contrast. The dose-length product was 741.50 mGy-cm. Maximum intensity projection 3D-reconstructions of the aorta and other arteries were constructed by the technologist on a separate workstation. COMPARISON: CT dated 10/12/2021. FINDINGS: There is pulmonary embolism involving upper lobe segmental pulmonary arteries as well as right lower lobe segmental and subsegmental pulmonary arteries, moderate thrombus burden. No significant pleural or pericardial effusion. No evidence for aortic dissection or aneurysm. No thoracic lymphad enopathy. Moderate size hiatal hernia. There is dependent atelectasis. No focal consolidation. No pneumothorax. No endobronchial lesions. The upper abdomen is unremarkable. IMPRESSION: 1. Bilateral pulmonary embolism, moderate thrombus burden. Reviewed, dictated and finalized at location O.
--- OUTSIDE RECORDS SUMMARY | 2025-08-13 15:51 | XMS_ITS | Clinical Summary ---
Author Organization [facility] [address] Address [address] [address] Care Team Providers Care Welding Setter Name Role Phone Adolfo Fallon MD Primary [...] enteric coated tabletIndicatio ns:Coronary artery disease involving [place] coronary artery of [place] heart without angina pectoris Take 1 tablet (81 mg total) by mouth daily 30 tablet 11 2 Active nitroglycerin (NITROSTAT) 0.4 mg SL tabletIndicatio ns:Coronary artery disease involving [place] coronary artery of [place] heart without angina pectoris Place 1 tablet (0.4 mg total) under the tongue every 5 (five) minutes as needed for chest pain 25 tablet 3 3 Active metoprolol XL (TOPROL-XL) 100 mg 24 hr tabletIndicatio ns:Coronary artery disease involving [place] coronary artery of [place] heart without angina pectoris,Non-ST elevation (NSTEMI) myocardial [...] placement 2018 Coronary artery disease invo lving [place] coronary artery of [place] heart without angina pectoris 12/19/2018 Mixed hyperlipidemia [...] on file 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
--- OUTSIDE RECORDS SUMMARY | 2025-08-13 15:51 | XMS_ITS | Encounter Summary ---
Author Organization [facility] Address [address] [facility] [address] [place] [address] Care Team Providers Care Collision Repair Technician Name Role Phone Adolfo Fallon MD Primary Care Provide r Encounter Details Date Type Department Care Team (Late st Contact Info) Description 04/12/2017 Orders Only [facility] ProviderKritsy MD [address] [place] [address] Social History Tobacco Use Types Packs/Day Years Used Date Smoking Tobacco: Never Alcohol Use Standard Drinks/Week Comments No 0 (1 standard drink = 0.6 oz pur e alcohol) Sex and Gender Information Value Date Recorded Sex Assigned at Not on file 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
--- OUTSIDE RECORDS SUMMARY | 2025-08-13 16:37 | XMS_ITS | Clinical Summary ---
Author Organization [facility] [address] Address [address] [place] [address] Care Team Providers Care Evs Attendant Name Role Phone Adolfo Fallon MD Primary [...] enteric coated tabletIndicatio ns:Coronary artery disease involving [place] coronary artery of [place] heart without angina pectoris Take 1 tablet (81 mg total) by mouth daily 30 tablet 11 2 Active nitroglycerin (NITROSTAT) 0.4 mg SL tabletIndicatio ns:Coronary artery disease involving [place] coronary artery of [place] heart without angina pectoris Place 1 tablet (0.4 mg total) under the tongue every 5 (five) minutes as needed for chest pain 25 tablet 3 3 Active metoprolol XL (TOPROL-XL) 100 mg 24 hr tabletIndicatio ns:Coronary artery disease involving [place] coronary artery of [place] heart without angina pectoris,Non-ST elevation (NSTEMI) myocardial [...] placement 2018 Coronary artery disease invo lving [place] coronary artery of [place] heart without angina pectoris 12/19/2018 Mixed hyperlipidemia [...] on file 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
--- OUTSIDE RECORDS SUMMARY | 2025-08-13 16:37 | XMS_ITS | Encounter Summary ---
Author Organization [facility] Address [address] [facility] [address] [place] [address] Care Team Providers Care Labor Employment Associate Name Role Phone Adolfo Fallon MD Primary Care Provide r Encounter Details Date Type Department Care Team (Late st Contact Info) Description 04/12/2017 Orders Only [facility] ProviderKristy MD [address] [place] [address] Social History Tobacco Use Types Packs/Day Years Used Date Smoking Tobacco: Never Alcohol Use Standard Drinks/Week Comments No 0 (1 standard drink = 0.6 oz pur e alcohol) Sex and Gender Information Value Date Recorded Sex Assigned at Not on file 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
[2025-08-13 16:40] LABS: Hematocrit 44.6 % (42.0-52.0); Hemoglobin 14.3 g/dL (14.0-18.0); Immature Granulocyte Percent A 0.7 % (0-0.5); Lymphocytes Absolute Auto 1.05 K/mm3 (0.9-3.2); Mean Corpuscular HGB Conc 32.1 g/dl (32-36); Mean Corpuscular Hemoglobin 26.2 pg (26-34); Mean Corpuscular Volume 81.7 fl (80-100); Nucleated Red Blood Cells Absolute Auto 0.000 K/mm3 (0.0-0.012); Nucleated Red Blood Cells Perc 0.0 % (0.0-0.2); Platelet Count Result 225 k/mm3 (150-375); Red Blood Count 5.46 M/mm3 (4.6-6.20); White Blood Count 8.6 K/mm3 (4.5-10.0)
[2025-08-13 16:55] LABS: INR 0.9; Prothrombin Time 12.8 Seconds (11.1-14.7)
[2025-08-13 16:57] LABS: Anion Gap 8 mmol/L (4-12); Blood Urea Nitrogen 20 mg/dL (9-20); Calcium 8.9 mg/dL (8.4-10.2); Carbon Dioxide 22 mmol/L (22-30); Chloride 104 mmol/L (98-107); Estimated CRCL calculation 57 ml/min; Estimated Glomerular Filt Rate > 60; Glucose 112 mg/dL (65-110); Potassium 4.3 mmol/L (3.4-5.0); Sodium 134 mmol/L (137-145)
--- NOTE | 2025-08-13 18:03 | PM.IMHP ---
H&P: HPI History of Present Illness Date/Time: 08/13/25 18:03 Chief Complaint: DVT Narrative: 75 y/o M with PMH of DVT/PE no longer on anticoagulation, ulcerative colitis, asthma, NSTEMI, anemia, CAD, GERD, kidney stones, and TIA presents here with a DVT. The patient was seen by his GI provider, Desirae FERNANDO, for follow-up on his ulcerative colitis. During this visit he reported a 5 day history of swelling to his left lower extremity. He has a past medical history significant for a DVT and a PE. A stat venous Doppler was ordered which showed an extensive left sided DVT. He was directed to the emergency department for further evaluation. At this time he reports he is mildly short of breath (has hx of asthma and has been attributing it to that) and a intermittently productive cough. Denies chest pain, palpitations, hemopytsis, or dizziness. Workup was significant for bilateral PEs. Hx of PE/DVT within the last 5 years. Denies any recent surgeries, immobility, and has no active/previous hx of cancer. Initial VS at presentation: 98? F, HR 109, R 18, 154/103, and 97% on RA. ED workup showed: No leukocytosis, no anemia, INR 0.9, no significant electrolyte derangements, creatinine 1.02 and normal GFR. US of the LLE showed an extensive left sided DVT (done outpatient on 08/13). CTA chest showed bilateral pulmonary emboli, moderate thrombus burden. Review of Systems Review of Systems: All systems reviewed & are unremarkable except as noted in HPI and below PMFSH Past Medical History Medical History Obese Hx of adenomatous colonic polyps Colon dysplasia Vitamin D deficiency Oral thrush Microcytic hypochromic anemia C. difficile colitis High risk medication use Need for hepatitis B screening test GERD (gastroesophageal reflux disease) CAD (coronary artery disease) stent placed in Oct 2018 to the prox LAD Asthma Skin lesion of back Folliculitis Myocardial infarction HTN (hypertension) Hypercholesterolemia Kidney stones Ulcerative colitis TIA (transient ischemic attack) Surgical History Surgical History Hx of sinus surgery History of heart artery stent Family History Family History Mother Hypertension DVT (deep venous thrombosis) Father Hypertension Heart disease Social History Social History Social History: Lives alone. . No children. Denies alcohol or drug use. He is a lifelong nonsmoker. He is a full code. He nominated Batsheva Paz to be the individual would be making decisions for him if he is unable. Smoking status: Never smoker Alcohol intake: never Substance use: never Substance use type: does not use Lack of Transportation: No Lack of Food: Never True Current Housing: I Have Housing Concerned About Future Housing: No Difficulty Paying Gas/Electric Bills: No Difficulty Paying for Meds: No Currently Unemployed: No Education: Trade/Vocational Certificate Difficulty w/ Childcare or Family Care: No Living arrangements: alone Gender identity (if verbalized by the patient): Male Spiritual care concerns: No Meds Home Medications and Allergies Home Medications ?Medication ?Instructions ?Recorded ?Confirmed ?Type metoprolol succinate 100 mg 100 mg PO QPM 02/07/24 08/13/25 History tablet,extended release 24 hr nitroglycerin 0.4 mg sublingual 0.4 mg sublingual DAILY PRN Chest 02/07/24 08/13/25 History tablet Pain pantoprazole 40 mg tablet,delayed See Rx Instructions .Route 12/13/24 08/13/25 Rx release .COMPLEX #90 tabs albuterol sulfate 90 mcg/actuation See Rx Instructions .Route 03/25/25 08/13/25 Rx aerosol inhaler .COMPLEX #25.5 ea cholecalciferol (vitamin D3) 25 25 mcg PO DAILY 03/31/25 08/13/25 History mcg (1,000 unit) capsule adalimumab 40 mg/0.8 mL See Rx Instructions .Route 04/08/25 08/13/25 Rx subcutaneous pen kit (Humira Pen) .COMPLEX #6 ea prednisone 5 mg tablet 5 mg PO DAILY 1 month #30 tabs 06/03/25 08/13/25 Rx budesonide-formoterol HFA 160 2 puff inhalation Q12H 08/13/25 08/13/25 History mcg-4.5 mcg/actuation aerosol inhaler fluticasone propionate 50 1 spray intranasal Q12H 08/13/25 08/13/25 History mcg/actuation nasal spray,suspension Allergies Allergy/AdvReac Type Severity Reaction Status Date / Time Sulfa (Sulfonamide Allergy Mild Hives Verified 08/13/25 13:12 Antibiotics) azathioprine Allergy Unknown Unknown Verified 08/13/25 13:12 sulfanilamide Allergy Unknown Unknown Verified 08/13/25 13:12 Vital Signs Vital Signs - 24 hr 08/13/25 16:00 08/13/25 16:10 08/13/25 16:16 Temperature 98.0 F Pulse Rate 109 H 110 H 113 H Respiratory Rate 18 17 13 Blood Pressure 154/103 H 180/98 H 154/103 H Pulse Oximetry 97 97 95 Oxygen Delivery Room Air 08/13/25 16:31 08/13/25 16:45 08/13/25 16:46 Temperature Pulse Rate 108 H 108 H 110 H Respiratory Rate 18 21 H 21 H Blood Pressure 160/105 H 156/101 H Pulse Oximetry 95 96 92 Oxygen Delivery 08/13/25 17:01 Temperature Pulse Rate 114 H Respiratory Rate 21 H Blood Pressure 149/100 H Pulse Oximetry 88 L Oxygen Delivery Exam Const: General: comfortable and no acute distress Other: , male, elderly, nontoxic appearance HENMT: Face/Nose/Sinus: Normal nares present Mouth: Yes moist mucous membranes Eyes: General: appearance normal, both eyes and all related structures Sclera: sclerae normal Pupils: Equal, round and reactive pupils present EOM: EOMs intact bilaterally Resp: Auscultation: clear to auscultation bilaterally Other: mild tachypnea, no increased work of breathing, no respiratory distress Cardio: Rate: tachycardic ( mild) Rhythm: regular rhythm Other: S1-S2 present without murmur, rub, ectopy GI: Other: Abdomen soft, rounded, nontender. Normoactive bowel sounds in all quadrants. Skin: General skin exam: no rashes or lesions noted Wounds: no wounds Other: mild erythema to the left lower extremity starting at the proximal yates to the foot Neuro: Speech: normal speech Motor exam (neuro): 5/5 motor strength present throughout Sensory Exam: normal sensation Other: A&O x4 Extrem: Other: 1+ nonpitting edema to the left lower extremity, trace edema to the right lower extremity. DP pulses 1+ bilaterally, symmetric. Psych: Mental Status: mental status grossly normal Affect: normal affect Other: Good insight and judgment, very pleasant H&P: Results Labs Labs: Short CBC 08/13/25 Range/Units 16:25 WBC 8.6 (4.5-10.0) K/mm3 Hgb 14.3 (14.0-18.0) g/dL Hct 44.6 (42.0-52.0) % Plt Count 225 (150-375) k/mm3 BMP 08/13/25 16:25 Sodium 134 L Potassium 4.3 Chloride 104 Carbon Dioxide 22 BUN 20 Creatinine 1.02 Glucose 112 H Calcium 8.9 Assessment and Plan Assessment and plan (1) Pulmonary embolism: Qualifiers: Pulmonary embolism type: multiple subsegmental (without acute cor pulmonale) Qualified Code(s): I26.94 - Multiple subsegmental thrombotic pulmonary emboli without acute cor pulmonale Code(s): I26.99 - Other pulmonary embolism without acute cor pulmonale Status: Acute Assessment and Plan: Patient has follow-up GI appointment today, 08/13 when he reported a 5 day history of left lower extremity swelling and redness. Outpatient ultrasound of the left lower extremity showed an extensive left lower extremity DVT. He has a history significant for a DVT/PE, no longer on anticoagulation. At time of presentation he denied chest pain, worsening shortness of breath, hemoptysis, recent surgery, active cancer or recent cancer treatment, or recent immobility. - chest CTA, 08/13: Bilateral pulmonary embolism, moderate thrombus burden. - US LLE, 08/13: - started on Heparin gtt on 08/13, monitor coags and CBC - check echo - check troponin >> initial negative, 2nd ordered (2) DVT (deep venous thrombosis): Qualifiers: Affected thrombotic vein of extremity: unspecified lower extremity distal vein Chronicity: unspecified DVT location: lower extremity Laterality: right Qualified Code(s): I82.4Z1 - Acute embolism and thrombosis of unspecified deep veins of right distal lower extremity Code(s): I82.409 - Acute embolism and thrombosis of unspecified deep veins of unspecified lower extremity Status: Acute Assessment and Plan: - see above (3) HTN (hypertension): Qualifiers: Hypertension type: unspecified Qualified Code(s): I10 - Essential (primary) hypertension Code(s): I10 - Essential (primary) hypertension Status: Chronic Assessment and Plan: - chronic, currently 142/103. - hydralazine PRN for BP >180/90, will give 5 mg IV now due to elevation in diastolic - continue home medications: - monitor (4) Ulcerative colitis: Qualifiers: Digestive disease complication type: unspecified complication Ulcerative colitis location: unspecified ulcerative colitis location Qualified Code(s): K51.919 - Ulcerative colitis, unspecified with unspecified complications Code(s): K51.90 - Ulcerative colitis, unspecified, without complications Status: Chronic Assessment and Plan: Followed up with his GI provider on 08/13. During this visit they discussed the increased risk of colon cancer due to his history of UC, patient lately declined despite the risks/benefits. Continue Humira 40 mg subQ q.2 weeks and prednisone 5 mg daily. Follow-up in 6 months. Home medications continued. Plan Diet: Heart healthy GI Prophylaxis: N/a DVT Prophylaxis: Heparin gtt IV fluids: None Lines/Tubes: Peripheral IV Code Status: Full code Quality VTE Prophylaxis VTE prophylaxis: pharmacologic ordered Hospitalist MIPS Advance Care Plan I have confirmed that the patient's Advanced Care Plan is present, code status is documented, or surrogate decision maker is listed in patient medical record.: Yes Medication Reconciliation I have utilized all available resources to obtain, update and review the patients current medications (includes all prescriptions, OTC, herbals, cannabis, and nutritional supplements).: Yes
--- NOTE | 2025-08-13 18:07 | ED_ITS ---
HPI - General Adult General Chief complaint: Recheck/Abnormal Lab/Rx Stated complaint: US pos for DVT Time Seen by Provider: 08/13/25 16:00 Source: patient Mode of arrival: ambulatory Limitations: no limitations History of Present Illness HPI narrative: 75-year-old with a history of ulcerative colitis, DVT, PE here with a complaint of left leg DVT diagnosed a few hours ago. Patient states that he was at the GI doctor office complaining of left leg pain and swelling he was sent to ultrasound for rule out DVT. Patient was diagnosed with extensive DVT on the left side he was sent to ER for further management. He presently denies having any chest pain or shortness of breath. Patient states that he he had been DVT as well as PE several years ago. Onset (ago): day(s) (1) Severity: mild Pain Consistency: constant Relieving factors: none Exacerbating factors: none Associated symptoms: denies other symptoms Related Data Home Medications ?Medication ?Instructions ?Recorded ?Confirmed ?Last Taken ?Type metoprolol succinate 100 mg 100 mg PO DAILY 02/07/24 0 08/13/25 08/26/24 History tablet,extended release 24 hr nitroglycerin 0.4 mg sublingual 0.4 mg sublingual SHANE Y PRN Chest 02/07/24 08/13/25 08/26/24 History tablet Pain cholecalciferol (vitamin D3) 25 25 mcg PO DAILY 08/13/25 Unknown History mcg (1,000 unit) capsule Allergies Allergy/AdvReac Type Severity Reaction Status Date / Time Sulfa (Sulfonamide Allergy Mild Hives Verified 08/13/25 13:12 Antibiotics) azathioprine Allergy Unknown Unknown Verified 08/13/25 13:12 sulfanilamide Allergy Unknown Unknown Verified 08/13/25 13:12 Review of Systems 2 Review of Systems: All systems reviewed & are unremarkable except as noted in HPI and below Constitutional: Constitutional: Reports no additional constitutional complaints Eyes: Eyes: Reports no additional eye complaints ENT: Reports system reviewed and no additional complaints, except as documented Cardiovascular: Cardiovascular: Reports no additional cardiovascular complaints Respiratory: Respiratory: Reports no additional respiratory complaints Gastrointestinal: Gastrointestinal: Reports no additional gastrointestinal complaints Genitourinary: Genitourinary: Reports no additional male genitourinary complaints Neurologic: Reports system reviewed and no additional complaints, except as documented [facility] Past Medical History Medical History Edema of left lower extremity Obese Hx of adenomatous colonic polyps Abdominal bloating Colon dysplasia Colitis, ulcerative chronic Weight gain Vitamin D deficiency Unspecified asthma, uncomplicated Ulcerative colitis, unspecified, without complications Status post myocardial infarction Shortness of breath Oral thrush NSTEMI (non-ST elevated myocardial infarction) Microcytic hypochromic anemia Low hemoglobin and low hematocrit Epistaxis Chest pain on respiration CAD in [place] artery C. difficile colitis High risk medication use Need for hepatitis B screening test GERD (gastroesophageal reflux disease) CAD (coronary artery disease) stent placed in Oct 2018 to the prox LAD Cough Asthma Skin lesion of back URI with cough and congestion Rash Folliculitis Myocardial infarction HTN (hypertension) Hypercholesterolemia Kidney stones Ulcerative colitis TIA (transient ischemic attack) Surgical History Surgical History Hx of sinus surgery History of heart artery stent Family History Family History Mother Hypertension DVT (deep venous thrombosis) Father Hypertension Heart disease Social History Social History Social History: Lives alone. . No children. Denies alcohol or drug use. He is a lifelong nonsmoker. He is a full code. He nominated Batsheva Paz to be the individual would be making decisions for him if he is unable. Smoking status: Never smoker Alcohol intake: never Substance use: never Substance use type: does not use Lack of Transportation: No Lack of Food: Never True Current Housing: I Have Housing Concerned About Future Housing: No Difficulty Paying Gas/Electric Bills: No Difficulty Paying for Meds: No Education: High School Diploma/GED Difficulty w/ Childcare or Family Care: No Living arrangements: alone Gender identity (if verbalized by the patient): Male Spiritual care concerns: No Exam 2 Narrative: GENERAL: Well-appearing, well-nourished, and in no acute distress. HEAD: Normocephalic, atraumatic. EYES: PERRLA and EOMI. ENT: Nares clear, no rhinorrhea or epistaxis. Mucous membranes moist. NECK: Supple. CHEST: Clear to auscultation. No respiratory distress. HEART: Regular rate and rhythm. No murmur heard. Normal peripheral pulses. ABDOMEN: Soft, nontender, nondistended, normal active bowel sounds. EXTREMITIES: Normal range of motion. Mild edema on the left edema. SKIN: Warm, dry, no rash. NEURO: No focal deficits. Alert and oriented x3. PSYCH: Normal mood and affect. Course Course Emergency Course: Notified him about the lab work, CT findings. Agreeable with admission. Will start him on Lovenox. Discussed with the hospitalist accepted the patient. Vital Signs Vital signs: Vital Signs Temperature 36.7 C 08/13/25 16:00 Pulse Rate 109 H 08/13/25 16:00 Respiratory Rate 18 08/13/25 16:00 Blood Pressure 154/103 H 08/13/25 16:00 Pulse Oximetry 97 08/13/25 16:00 Oxygen Delivery Room Air 08/13/25 16:00 Temperature 36.7 C 08/13/25 16:00 Pulse Rate 114 H 08/13/25 17:01 Respiratory Rate 20 08/13/25 17:01 Blood Pressure 149/100 H 08/13/25 17:01 Pulse Oximetry 96 08/13/25 17:01 Oxygen Delivery Room Air 08/13/25 16:00 Medical Decision Making Differential Diagnosis Differential Diagnosis: PE Medical Records Medical records reviewed: Yes I reviewed the external patient's medical records. Vital Signs Vital Signs: Vital Signs Temperature 36.7 C 08/13/25 16:00 Pulse Rate 109 H 08/13/25 16:00 Respiratory Rate 18 08/13/25 16:00 Blood Pressure 154/103 H 08/13/25 16:00 Pulse Oximetry 97 08/13/25 16:00 Oxygen Delivery Room Air 08/13/25 16:00 Temperature 36.7 C 08/13/25 16:00 Pulse Rate 114 H 08/13/25 17:01 Respiratory Rate 20 08/13/25 17:01 Blood Pressure 149/100 H 08/13/25 17:01 Pulse Oximetry 96 08/13/25 17:01 Oxygen Delivery Room Air 08/13/25 16:00 Lab Data Lab results reviewed: Yes I reviewed the patient's lab results. 08/13/25 16:25 08/13/25 16:25 Labs: Lab Results 08/13/25 Range/Units 16:25 WBC 8.6 (4.5-10.0) K/mm3 RBC 5.46 (4.6-6.20) M/mm3 Hgb 14.3 (14.0-18.0) g/dL Hct 44.6 (42.0-52.0) % MCV 81.7 (80-100) fl MCH 26.2 (26-34) pg MCHC 32.1 (32-36) g/dl RDW 15.5 H (11.5-14.5) % Plt Count 225 (150-375) k/mm3 MPV 11.0 H (7.4-10.4) fl Immature Gran % (Auto) 0.7 H (0-0.5) % Neut % (Auto) 76.7 H (45.5-73.1) % Lymph % (Auto) 12.2 L (18.3-44.2) % Martin % (Auto) 7.3 (2.6-8.5) % Eos % (Auto) 1.9 (0-4.4) % Baso % (Auto) 1.2 (0.2-1.2) % Lymph # (Auto) 1.05 (0.9-3.2) K/mm3 Martin # (Auto) 0.6 (0.1-0.6) K/mm3 Eos # (Auto) 0.2 (0-0.3) K/mm3 Baso # (Auto) 0.1 (0.0-0.1) K/mm3 Abs Immat Gran (auto) 0.06 H (0.00-0.031) K/mm3 Absolute Neuts (auto) 6.6 (1.3-6.7) K/mm3 Absolute Nucleated RBC 0.000 (0.0-0.012) K/mm3 Nucleated RBC % 0.0 (0.0-0.2) % PT 12.8 (11.1-14.7) Seconds INR 0.9 Sodium 134 L (137-145) mmol/L Potassium 4.3 (3.4-5.0) mmol/L Chloride 104 (98-107) mmol/L Carbon Dioxide 22 (22-30) mmol/L Anion Gap 8 (4-12) mmol/L BUN 20 (9-20) mg/dL Creatinine 1.02 (0.7-1.3) mg/dL Estim Creat Clear Calc 57 ml/min Estimated GFR > 60 (59 - ) Glucose 112 H (65-110) mg/dL Calcium 8.9 (8.4-10.2) mg/dL Imaging Data Radiologist's impression: ITS Impressions Chest CTA 08/13/25 17:45 IMPRESSION: 1. Bilateral pulmonary embolism, moderate thrombus burden. ECG Data EKG #1: ECG completion date: 08/13/25 ECG completion time: 18:20 EKG Interpretation: tachycardia (104), RBBB and no acute changes Discharge Plan Discharge Clinical Impression: Pulmonary embolism Qualifiers: Pulmonary embolism type: unspecified Chronicity: acute Acute cor pulmonale presence: without acute cor pulmonale Qualified Code(s): I26.99 - Other pulmonary embolism without acute cor pulmonale DVT (deep venous thrombosis) Qualifiers: DVT location: lower extremity Affected thrombotic vein of extremity: u nspecified lower extremity distal vein Chronicity: unspecified Laterality: left Qualified Code(s): I82.4Z2 - Acute embolism and thrombosis of unspecified deep veins of left distal lower extremity Patient Disposition: Still a Patient Condition: Stable Patient Language: Mauritian Prescriptions: No Action metoprolol succinate 100 mg tablet extended release 24 hr 100 mg PO DAILY nitroglycerin 0.4 mg tablet, sublingual 0.4 mg sublingual DAILY PRN (Reason: Chest Pain) cholecalciferol (vitamin D3) 25 mcg (1,000 unit) capsule 25 mcg PO DAILY pantoprazole 40 mg tablet,delayed release (DR/EC) See Rx Instructions .ROUTE .COMPLEX Qty: 90 2RF Dose Instruction: TAKE 1 TABLET BY MOUTH EVERY MORNING Rx Instructions: TAKE 1 TABLET BY MOUTH EVERY MORNING albuterol sulfate 90 mcg/actuation HFA aerosol inhaler See Rx Instructions .ROUTE .COMPLEX Qty: 25.5 3RF Dose Instruction: INHALE 1 PUFF BY MOUTH EVERY 4 HOURS NEEDED FOR SHORTNESS OF BREATH OR WHEEZING Rx Instructions: INHALE 1 PUFF BY MOUTH EVERY 4 HOURS NEEDED FOR SHORTNESS OF BREATH OR WHEEZING Humira Pen 40 mg/0.8 mL pen injector kit See Rx Instructions .ROUTE .COMPLEX Qty: 6 4RF Dose Instruction: INJECT 40 MG SUBCUTANEOUSLY EVERY 14 DAYS FOR 3 MONTHS Rx Instructions: INJECT 40 MG SUBCUTANEOUSLY EVERY 14 DAYS FOR 3 MONTHS budesonide-formoterol 160-4.5 mcg/actuation HFA aerosol inhaler See Rx Instructions .ROUTE .COMPLEX Qty: 30.6 2RF Dose Instruction: INHALE 1 PUFF DAILY Rx Instructions: INHALE 1 PUFF DAILY prednisone 5 mg tablet 5 mg PO DAILY 30 Days Qty: 30 11RF Follow-up/Referrals: Adolfo Fallon MD [Primary Care Provider, Internal Medicine] Time of Disposition: 18:08
--- NOTE | 2025-08-13 18:12 | ECG_ITS ---
Test Date: 2025-08-13 18:20:35 Measurements Intervals [place] Rate: 104 P: 12 OR: 175 QRS: 43 QRSD: 136 T: -5 QT: 336 QTc: 443 Interpretive Statements SINUS TACHYCARDIA RIGHT BUNDLE BRANCH BLOCK [120+ ms QRS DURATION, UPRIGHT V1, 40+ ms S IN I/aVL/V4/V5/V6] No previous ECG available for comparison Electronically Signed On 08-14-2025 06:39:11 CDT by Afshan Holbrook M.D.
[2025-08-13 19:01] LABS: Partial Thromboplastin Time 30.9 Seconds (22.3-36.8)
[2025-08-13 19:07] LABS: Troponin I < 0.012 ng/mL (0.000-0.034)
[2025-08-13] MEDS: HEPARIN SOD/D5W 100 UNITS/ML 25,000 UNITS/250 ML BAG 15 UNITS IV CONT (19:31)
--- NOTE | 2025-08-13 20:49 | ADMGEN ---
This patient, Arvind Pruett, was admitted to 2 Medical Room 259-01. Patient/family oriented to hospital policies and general routines including ID bracelet, bed and alarms, visiting hours, pain management, procedures, bathroom and other care routines, personal items, smoking policy, room service/diet, and visiting hours. Information on how to activate the Rapid Response Team has been discussed. Patient/Family are encouraged to report perceived risks to care and to ask questions if they do not understand what they are told or what they should do.
[2025-08-13] MEDS: METOPROLOL TARTRATE 50 MG TAB PO (21:19)
[2025-08-13 22:16] LABS: Troponin I < 0.012 ng/mL (0.000-0.034)
[2025-08-13] MEDS: HEPARIN SOD/D5W 100 UNITS/ML 25,000 UNITS/250 ML BAG 13 UNITS IV CONT (22:24)
[2025-08-13] MEDS: FLUTICASONE PROPIONATE 0.05% NA SPR 16 GM BTL (*BKC) 1 SPRAY NASAL (23:20)
[2025-08-13] MEDS: ACETAMINOPHEN 325 MG TABLET 650 MG PO (23:25)
[2025-08-14] VITALS (10 sets, daily range): BP systolic 137–166; BP diastolic 86–98; PULSE 85–120; RESP 16–20; TEMP 36.5–37.1; O2SAT 94–98
--- NOTE | 2025-08-14 | ECHO_ITS ---
Patient Info Name: Arvind Pruett Age: 75 years : 1950 Gender: Male Ht: 64 in Wt: 215 lbs BSA: 2.14 m2 HR: 102 bpm BP: 142 / 90 mmHg Heart Rhythm: Sinus Rhythm Technical Quality: Fair Exam Date: 08/14/2025 9:34 AM Patient Status: I Admit Date: 08/13/2025 Exam Type: CA echo doppler color flow Complete two-dimensional, color flow and Doppler transthoracic echocardiogram is performed. Staff Referring Physician: Paco Galdamez MD Manager Money: Mahi Collazo Attending Provider: Karlos Baker Summary 1. Complete two-dimensional, color flow and Doppler transthoracic echocardiogram is performed. 2. Normal left ventricular size, vigorous contractility and grade 1 diastolic noncompliance. 3. Trivial aortic regurgitation but no significant aortic or mitral valve disease. 4. Normal appearing right ventricular size with good systolic function. 5. Trivial amount of tricuspid regurgitation, estimated RV systolic pressure of 39 mmHg (patient with PE). Left Ventricle Left ventricular chamber dimension is normal. Left ventricular systolic function is normal, estimated at 65-70. The left ventricular diastolic function is grade I diastolic dysfunction. Right Ventricle Right ventricular chamber dimension is normal. Right ventricular systolic function is normal. Left Atria Left atrial chamber dimension is normal. Right Atria Right atrial chamber dimension is normal. Aortic Valve The aortic valve is trileaflet. There is mild aortic valve sclerosis. There is trace aortic valve regurgitation. Pulmonic Valve The pulmonic valve is not well visualized. Mitral Valve The mitral valve has normal leaflets. The mitral valve annulus is mildly calcified. Tricuspid Valve The tricuspid valve leaflets are normal. There is trace tricuspid valve regurgitation. Pericardium/Pleural The pericardium appears normal. Aorta The aortic root size at the sinus of Valsalva is normal. Left Ventricular Outflow Tract Name Value Normal LVOT 2D LVOT Diameter 1.8 cm LVOT Doppler LVOT Peak Velocity 114 cm/s LVOT Peak Gradient 5 mmHg LVOT Mean Gradient 3 mmHg LVOT VTI 21 cm LVOT VTI/AV VTI Ratio 0.7 LVOT Stroke Volume 53 ml LVOT CO 12.7 l/min LVOT CI 5.9 l/min/m2 Pulmonic Valve Name Value Normal PV Doppler PV Peak Velocity 101 cm/s PV Peak Gradient 4 mmHg Tricuspid Valve Name Value Normal TV Regurgitation Doppler TR Peak Velocity 271 cm/s TR Peak Gradient 25 mmHg Estimated PAP/RSVP RA Pressure 10 mmHg <=5 PA Systolic Pressure 39 mmHg <36 RV Systolic Pressure 39 mmHg <36 TV Annular TDI TV Lateral Erendira s' Velocity 12.8 cm/s >=9.5 Aorta Name Value Normal Ascending Aorta Ao Root Diameter (MM) 3.4 cm Ao Root Diam Index (MM) 1.6 cm/m2 Aortic Valve Name Value Normal AV Doppler AV Peak Velocity 166 cm/s AV Peak Gradient 11 mmHg AV Mean Gradient 6 mmHg AV VTI 31 cm AV Area (Cont Eq VTI) 1.7 cm2 >=3.0 AV Area (Cont Eq Sina) 1.7 cm2 AV DI (Sina) 0.69 AV Regurgitation 2D LVOT Area 2.5 cm2 Ventricles Name Value Normal LV Dimensions 2D/MM IVS Diastolic Thickness (2D) 0.9 cm 0.6-1.0 LVID Diastole (2D) 4.5 cm 4.2-5.8 LVIW Diastolic Thickness (2D) 0.9 cm 0.6-1.0 LVID Systole (2D) 2.7 cm 2.5-4.0 LVOT Diameter 1.8 cm LV Mass (2D Cubed) 133.83 g 88.00-224.00 LV Mass Index (2D Cubed) 62 g/m2 49-115 Relative Wall Thickness (2D) 0.38 <=0.42 LV Fractional Shortening/Ejection Fraction 2D/MM LV Fractional Shortening (2D) 40 % 25-43 LV EF (2D Teichholz) 71 % LV Diastolic Volume (4C MOD) 95 ml LV EF (4C MOD) 59 % LV Diastolic Volume (2C MOD) 72 ml LV EF (2C MOD) 57 % LV Diastolic Volume (BP MOD) 82 ml 62-150 LV Diastolic Volume Index (BP MOD) 38 ml/m2 34-74 LV Systolic Volume (BP MOD) 34 ml 21-61 LV Systolic Volume Index (BP MOD) 16 ml/m2 11-31 LV EF (BP MOD) 59 % 52-72 LV Diastolic Length (4C) 8.1 cm LV Systolic Length (4C) 6.7 cm LV Stroke Volume (4C MOD) 56 ml RV Dimensions 2D/MM RVID Diastole (2D) 4.0 cm 2.1-3.5 Atria Name Value Normal LA Dimensions LA Dimension (MM) 0.0 cm 3.0-4.0 LA Volume (4C A-L) 53 ml LA Volume (BP A-L) 50 ml RA Dimensions RA Systolic Major [place] Length (4C) 4.7 cm 2.1-2.7 RA Area (4C) 18.8 cm2 <=18.0 Report Signatures
[2025-08-14 01:26] LABS: Hematocrit 42.1 % (42.0-52.0); Hemoglobin 13.5 g/dL (14.0-18.0); Immature Granulocyte Percent A 0.6 % (0-0.5); Lymphocytes Absolute Auto 0.90 K/mm3 (0.9-3.2); Mean Corpuscular HGB Conc 32.1 g/dl (32-36); Mean Corpuscular Hemoglobin 25.9 pg (26-34); Mean Corpuscular Volume 80.8 fl (80-100); Nucleated Red Blood Cells Absolute Auto 0.000 K/mm3 (0.0-0.012); Nucleated Red Blood Cells Perc 0.0 % (0.0-0.2); Platelet Count Result 218 k/mm3 (150-375); Red Blood Count 5.21 M/mm3 (4.6-6.20); White Blood Count 9.0 K/mm3 (4.5-10.0)
[2025-08-14 01:36] LABS: Alanine Aminotransferase 23 U/L (6-50); Albumin Level 3.6 g/dL (3.5-5.1); Alkaline Phosphatase 71 U/L (38-126); Anion Gap 5 mmol/L (4-12); Aspartate Amino Transferase 26 U/L (17-59); Bilirubin,Total 0.6 mg/dL (0.2-1.3); Blood Urea Nitrogen 17 mg/dL (9-20); Calcium 8.7 mg/dL (8.4-10.2); Carbon Dioxide 23 mmol/L (22-30); Chloride 104 mmol/L (98-107); Estimated CRCL calculation 59 ml/min; Estimated Glomerular Filt Rate > 60; Glucose 107 mg/dL (65-110); Potassium 4.0 mmol/L (3.4-5.0); Sodium 132 mmol/L (137-145); Total Protein 6.6 g/dL (6.3-8.2)
[2025-08-14 01:40] LABS: Partial Thromboplastin Time 68.5 Seconds (22.3-36.8)
--- NOTE | 2025-08-14 01:52 | ECG_ITS ---
Test Date: 2025-08-14 02:06:34 Measurements Intervals [place] Rate: 85 P: 39 DC: 205 QRS: 31 QRSD: 129 T: 14 QT: 365 QTc: 436 Interpretive Statements SINUS RHYTHM RIGHT BUNDLE BRANCH BLOCK [120+ ms QRS DURATION, UPRIGHT V1, 40+ ms S IN I/aVL/V4/V5/V6] Compared to ECG 08/13/2025 18:20:35 Sinus tachycardia no longer present Electronically Signed On 08-14-2025 06:36:44 CDT by Afshan Holbrook M.D.
[2025-08-14] MEDS: ALBUTEROL SULFATE (*SP) AEROSOL 1 PUFF INHALATION ×2 (05:01→20:32)
[2025-08-14 08:51] LABS: Partial Thromboplastin Time 110.1 Seconds (22.3-36.8)
[2025-08-14] MEDS: PANTOPRAZOLE 40 MG TABLET PO (09:11)
[2025-08-14] MEDS: CHOLECALCIFEROL (VITAMIN D3) 25 MCG (1,000 UNITS) TABLET PO (09:11)
[2025-08-14] MEDS: FLUTICASONE PROPIONATE 0.05% NA SPR 16 GM BTL (*BKC) 1 SPRAY NASAL ×2 (09:12→22:23)
--- NOTE | 2025-08-14 11:23 | PM.IMPN ---
Progress Note: A&P Assessment and Plan (1) Pulmonary embolism: Qualifiers: Pulmonary embolism type: multiple subsegmental (without acute cor pulmonale) Qualified Code(s): I26.94 - Multiple subsegmental thrombotic pulmonary emboli without acute cor pulmonale Code(s): I26.99 - Other pulmonary embolism without acute cor pulmonale Status: Acute Assessment and Plan: Patient has follow-up GI appointment today, 08/13 when he reported a 5 day history of left lower extremity swelling and redness. Outpatient ultrasound of the left lower extremity showed an extensive left lower extremity DVT. He has a history significant for a DVT/PE, no longer on anticoagulation. At time of presentation he denied chest pain, worsening shortness of breath, hemoptysis, recent surgery, active cancer or recent cancer treatment, or recent immobility. - chest CTA, 08/13: Bilateral pulmonary embolism, moderate thrombus burden. - US LLE, 08/13: - started on Heparin gtt on 08/13, monitor coags and CBC - check echo - check troponin >> initial negative, 2nd ordered will order hem consult to establish and f/u for further coag work up once therapeutic level is achieved, will start eliquis (2) DVT (deep venous thrombosis): Qualifiers: Affected thrombotic vein of extremity: unspecified lower extremity distal vein Chronicity: unspecified DVT location: lower extremity Laterality: right Qualified Code(s): I82.4Z1 - Acute embolism and thrombosis of unspecified deep veins of right distal lower extremity Code(s): I82.409 - Acute embolism and thrombosis of unspecified deep veins of unspecified lower extremity Status: Acute Assessment and Plan: - see above (3) HTN (hypertension): Qualifiers: Hypertension type: unspecified Qualified Code(s): I10 - Essential (primary) hypertension Code(s): I10 - Essential (primary) hypertension Status: Chronic Assessment and Plan: - chronic, currently 142/103. - hydralazine PRN for BP >180/90, will give 5 mg IV now due to elevation in diastolic - continue home medications: - monitor (4) Ulcerative colitis: Qualifiers: Digestive disease complication type: unspecified complication Ulcerative colitis location: unspecified ulcerative colitis location Qualified Code(s): K51.919 - Ulcerative colitis, unspecified with unspecified complications Code(s): K51.90 - Ulcerative colitis, unspecified, without complications Status: Chronic Assessment and Plan: Followed up with his GI provider on 08/13. During this visit they discussed the increased risk of colon cancer due to his history of UC, patient lately declined despite the risks/benefits. Continue Humira 40 mg subQ q.2 weeks and prednisone 5 mg daily. Follow-up in 6 months. Home medications continued. Plan Diet: Heart healthy GI Prophylaxis: N/a DVT Prophylaxis: Heparin gtt IV fluids: None Lines/Tubes: Peripheral IV Code Status: Full code Time Spent With Patient Time with patient: 25 - 35 minutes Subjective Date/time seen: 08/14/25 11:23 Interval history: 75 y/o M with PMH of DVT/PE no longer on anticoagulation, ulcerative colitis, asthma, NSTEMI, anemia, CAD, GERD, kidney stones, and TIA presents here with a DVT. The patient was seen by his GI provider, Desirae FERNANDO, for follow-up on his ulcerative colitis. During this visit he reported a 5 day history of swelling to his left lower extremity. He has a past medical history significant for a DVT and a PE. A stat venous Doppler was ordered which showed an extensive left sided DVT. He was directed to the emergency department for further evaluation. At this time he reports he is mildly short of breath (has hx of asthma and has been attributing it to that) and a intermittently productive cough. Denies chest pain, palpitations, hemopytsis, or dizziness. Workup was significant for bilateral PEs. Hx of PE/DVT within the last 5 years. Denies any recent surgeries, immobility, and has no active/previous hx of cancer. Initial VS at presentation: 98? F, HR 109, R 18, 154/103, and 97% on RA. ED workup showed: No leukocytosis, no anemia, INR 0.9, no significant electrolyte derangements, creatinine 1.02 and normal GFR. US of the LLE showed an extensive left sided DVT (done outpatient on 08/13). CTA chest showed bilateral pulmonary emboli, moderate thrombus burden. Pt is seen and examined. He reports left leg is a lot better, skin is warm and no pain,tingling. Review of Systems Review of Systems: All systems reviewed & are unremarkable except as noted in HPI and below Exam Const: General: comfortable and no acute distress Other: , male, elderly, nontoxic appearance HENMT: Face/Nose/Sinus: Normal nares present Mouth: Yes moist mucous membranes Eyes: General: appearance normal, both eyes and all related structures Sclera: sclerae normal Pupils: Equal, round and reactive pupils present EOM: EOMs intact bilaterally Resp: Auscultation: clear to auscultation bilaterally Other: mild tachypnea, no increased work of breathing, no respiratory distress Cardio: Rate: tachycardic ( mild) Rhythm: regular rhythm Other: S1-S2 present without murmur, rub, ectopy GI: Other: Abdomen soft, rounded, nontender. Normoactive bowel sounds in all quadrants. Skin: General skin exam: no rashes or lesions noted Wounds: no wounds Other: mild erythema to the left lower extremity starting at the proximal yates to the foot Neuro: Cranial nerves: Yes Equal, round and reactive pupils present Speech: normal speech Motor exam (neuro): 5/5 motor strength present throughout Sensory Exam: normal sensation Other: A&O x4 Extrem: Other: 1+ nonpitting edema to the left lower extremity, trace edema to the right lower extremity. DP pulses 1+ bilaterally, symmetric. Psych: Mental Status: mental status grossly normal Affect: normal affect Other: Good insight and judgment, very pleasant Objective Data Vital Signs Vital Signs: Vital Signs - 24 hr 08/13/25 16:00 08/13/25 16:10 08/13/25 16:16 Temperature 98.0 F Pulse Rate 109 H 110 H 113 H Respiratory Rate 18 17 13 Blood Pressure 154/103 H 180/98 H 154/103 H Pulse Oximetry 97 97 95 Oxygen Delivery Room Air Oxygen Flow Rate 08/13/25 16:31 08/13/25 16:45 08/13/25 16:46 Temperature Pulse Rate 108 H 108 H 110 H Respiratory Rate 18 21 H 21 H Blood Pressure 160/105 H 156/101 H Pulse Oximetry 95 96 92 Oxygen Delivery Oxygen Flow Rate 08/13/25 17:01 08/13/25 18:00 08/13/25 18:01 Temperature Pulse Rate 114 H 108 H 108 H Respiratory Rate 20 18 17 Blood Pressure 149/100 H 142/103 H 142/103 H Pulse Oximetry 96 95 92 Oxygen Delivery Oxygen Flow Rate 08/13/25 18:16 08/13/25 19:19 08/13/25 19:49 Temperature Pulse Rate 107 H 101 H 112 H Respiratory Rate 14 16 16 Blood Pressure 159/103 H 162/111 H 148/89 H Pulse Oximetry 95 97 100 Oxygen Delivery Oxygen Flow Rate 08/13/25 20:48 08/13/25 21:19 08/13/25 22:00 Temperature 98 F Pulse Rate 114 H 122 H Respiratory Rate 20 Blood Pressure 210/100 H Pulse Oximetry 100 100 Oxygen Delivery Nasal Cannula Oxygen Flow Rate 2 08/13/25 22:28 08/14/25 00:00 08/14/25 00:00 Temperature 98 F Pulse Rate 96 93 Respiratory Rate 20 Blood Pressure 152/87 H 147/86 H Pulse Oximetry 98 Oxygen Delivery Oxygen Flow Rate 08/14/25 02:10 08/14/25 04:00 08/14/25 04:00 Temperature 97.9 F Pulse Rate 92 90 85 Respiratory Rate 20 Blood Pressure 142/90 H Pulse Oximetry 95 94 Oxygen Delivery Nasal Cannula Oxygen Flow Rate 1 08/14/25 09:15 Temperature Pulse Rate Respiratory Rate Blood Pressure Pulse Oximetry 94 Oxygen Delivery Nasal Cannula Oxygen Flow Rate 2 Intake/Output Intake/Output: Intake & Output 08/11/25 08/12/25 08/13/25 08/14/25 23:59 23:59 23:59 23:59 Intake Total 567.6 Output Total 300 750 Balance -300 -182.4 Meds/Results Medications: Active Medications Generic Name Dose Route Start Last Admin Trade Name Freq PRN Reason Stop Dose Admin Acetaminophen 650 mg 08/13/25 18:17 08/13/25 23:25 Acetaminophen 325 Mg Tablet PO 650 mg Q4H PRN Administration Mild Pain (1-3) or Fever Albuterol 1 puff 08/13/25 21:55 08/14/25 05:01 Albuterol Sulfate (*Sp) Aerosol 1 Puff INHALATION 1 puff Q4HRT PRN Administration SHORTNESS OF BREATH/WHEEZING Bisacodyl 5 mg 08/13/25 18:12 Bisacodyl 5 Mg Tablet Ec PO DAILY PRN Constipation Fluticasone Propionate 1 spray 08/13/25 21:55 08/14/25 09:12 Fluticasone Propionate 0.05% Na Spr 16 Gm Btl (*Bkc) NASAL 1 spray Q12HR ABDON Administration Heparin Sodium (Porcine) 6,000 units 08/13/25 21:26 Heparin Sodium 5,000 Units/Ml Vial IV PUSH PRN PRN aPTT less than 55 seconds Heparin Sodium (Porcine) 3,000 units 08/13/25 21:27 08/14/25 02:00 Heparin Sodium 5,000 Units/Ml Vial IV PUSH 3,000 units PRN PRN Administration aPTT 55 - 70 seconds Hydralazine HCl 10 mg 08/13/25 18:18 Hydralazine Hcl 20 Mg/Ml Vial IV PUSH Q8H PRN Blood Pressure - High, >180/90 Heparin Sodium/Dextrose 25,000 units in 250 mls @ 13 mls/hr 08/13/25 21:25 08/14/25 09:12 Heparin Sodium/D5w 100 Units/Ml IV CONT 1,300 units/hr .[id number] ABDON 13 mls/hr Protocol Titration 1,300 UNITS/HR Metoprolol Succinate 100 mg 08/14/25 21:00 Metoprolol Succinate Ext Rel 100 Mg Tabcr PO QHS ABDON Ondansetron HCl 4 mg 08/13/25 18:17 Ondansetron Inj 4 Mg/2 Ml Vial IV PUSH Q4H PRN Nausea Pantoprazole Sodium 40 mg 08/14/25 09:00 08/14/25 09:11 Pantoprazole 40 Mg Tablet PO 40 mg QAM ABDON Administration Perflutren Lipid Microsphere 0 ml 08/13/25 18:04 Perflutren Lipid Microspheres 1.5 Ml Vial Diluted To 10 Ml Total Volume IV PUSH 08/16/25 18:04 ONCE PRN adequate visualization Protocol Prednisone 5 mg 08/14/25 08:00 08/14/25 09:12 Prednisone 5 Mg Tablet PO 5 mg DAILY@0800 ABDON Administration Fluticasone/Salmeterol 2 puff 08/14/25 08:00 Fluticasone/Salmeterol 115-21 Mcg Inhaler 1 Puff INHALATION Q12HRT ABDON Sodium Chloride 1 spray 08/14/25 04:50 Saline 0.65% Dinesh Soln 44 Ml Btl NASAL PRN PRN Congestion Vitamin D 25 mcg 08/14/25 09:00 08/14/25 09:11 Cholecalciferol (Vitamin D3) 25 Mcg (1,000 Units) Tablet PO 25 mcg DAILY ABDON Administration Radiology Results: ITS Impressions Chest CTA 08/13/25 17:45 IMPRESSION: 1. Bilateral pulmonary embolism, moderate thrombus burden. Labs Labs: Laboratory Results - last 24 hr 08/13/25 08/13/25 08/13/25 16:24 16:25 21:25 WBC 8.6 RBC 5.46 Hgb 14.3 Hct 44.6 MCV 81.7 MCH 26.2 MCHC 32.1 RDW 15.5 H Plt Count 225 MPV 11.0 H Immature Gran % (Auto) 0.7 H Neut % (Auto) 76.7 H Lymph % (Auto) 12.[address] [place] % (Auto) 7.3 Eos % (Auto) 1.9 Baso % (Auto) 1.2 Lymph # (Auto) 1.05 [place] # (Auto) 0.6 Eos # (Auto) 0.2 Baso # (Auto) 0.1 Abs Immat Gran (auto) 0.06 H Absolute Neuts (auto) 6.6 Absolute Nucleated RBC 0.000 Nucleated RBC % 0.0 PT 12.8 INR 0.9 APTT 30.9 Sodium 134 L Potassium 4.3 Chloride 104 Carbon Dioxide 22 Anion Gap 8 BUN 20 Creatinine 1.02 Estim Creat Clear Calc 57 Estimated GFR > 60 Glucose 112 H Calcium 8.9 Total Bilirubin AST ALT Alkaline Phosphatase Troponin I < 0.012 < 0.012 Total Protein Albumin 08/14/25 08/14/25 01:19 08:20 WBC 9.0 RBC 5.21 Hgb 13.5 L Hct 42.1 MCV 80.8 MCH 25.9 L MCHC 32.1 RDW 15.7 H Plt Count 218 MPV 10.5 H Immature Gran % (Auto) 0.6 H Neut % (Auto) 73.0 Lymph % (Auto) 10.[address] [place] % (Auto) 10.1 H Eos % (Auto) 5.2 H Baso % (Auto) 1.1 Lymph # (Auto) 0.90 [place] # (Auto) 0.9 H Eos # (Auto) 0.5 H Baso # (Auto) 0.1 Abs Immat Gran (auto) 0.05 H Absolute Neuts (auto) 6.6 Absolute Nucleated RBC 0.000 Nucleated RBC % 0.0 PT INR APTT 68.5 H 110.1 H Sodium 132 L Potassium 4.0 Chloride 104 Carbon Dioxide 23 Anion Gap 5 BUN 17 Creatinine 0.97 Estim Creat Clear Calc 59 Estimated GFR > 60 Glucose 107 Calcium 8.7 Total Bilirubin 0.6 AST 26 ALT 23 Alkaline Phosphatase 71 Troponin I Total Protein 6.6 Albumin 3.6 Quality VTE Prophylaxis VTE prophylaxis: pharmacologic ordered
[2025-08-14 14:18] LABS: Partial Thromboplastin Time 77.8 Seconds (22.3-36.8)
[2025-08-14] MEDS: HEPARIN SOD/D5W 100 UNITS/ML 25,000 UNITS/250 ML BAG 13 UNITS IV CONT (14:30)
[2025-08-14] MEDS: FLUTICASONE/SALMETEROL 115-21 MCG INHALER 1 PUFF 2 PUFF INHALATION ×2 (16:17→20:32)
[2025-08-14] MEDS: METOPROLOL SUCCINATE EXT REL 100 MG TABCR PO (18:44)
[2025-08-14 21:28] LABS: Partial Thromboplastin Time 57.4 Seconds (22.3-36.8)
[2025-08-14] MEDS: HEPARIN SOD/D5W 100 UNITS/ML 25,000 UNITS/250 ML BAG 14 UNITS IV CONT (21:56)
[2025-08-15] VITALS (7 sets, daily range): BP systolic 135–157; BP diastolic 79–92; PULSE 78–98; RESP 16–20; TEMP 36.4–36.8; O2SAT 96–97
[2025-08-15 04:20] LABS: Partial Thromboplastin Time 104.9 Seconds (22.3-36.8)
[2025-08-15] MEDS: PANTOPRAZOLE 40 MG TABLET PO (08:48)
[2025-08-15] MEDS: CHOLECALCIFEROL (VITAMIN D3) 25 MCG (1,000 UNITS) TABLET PO (08:48)
[2025-08-15] MEDS: FLUTICASONE PROPIONATE 0.05% NA SPR 16 GM BTL (*BKC) 1 SPRAY NASAL (08:48)
[2025-08-15] MEDS: HEPARIN SOD/D5W 100 UNITS/ML 25,000 UNITS/250 ML BAG 14 UNITS IV CONT (08:52)
[2025-08-15] MEDS: FLUTICASONE/SALMETEROL 115-21 MCG INHALER 1 PUFF 2 PUFF INHALATION (09:00)
[2025-08-15 10:10] LABS: Partial Thromboplastin Time 83.5 Seconds (22.3-36.8)
--- NOTE | 2025-08-15 15:01 | PM.DS ---
DS: Admitting Diagnosis Discharge Date 08/15 Admitting Diagnosis dvt/pe DS: Summary Hospital Course Hospital Course: 75 y/o M with PMH of DVT/PE no longer on anticoagulation, ulcerative colitis, asthma, NSTEMI, anemia, CAD, GERD, kidney stones, and TIA presents here with a DVT. The patient was seen by his GI provider, Desirae FERNANDO, for follow-up on his ulcerative colitis. During this visit he reported a 5 day history of swelling to his left lower extremity. He has a past medical history significant for a DVT and a PE. A stat venous Doppler was ordered which showed an extensive left sided DVT. He was directed to the emergency department for further evaluation. At this time he reports he is mildly short of breath (has hx of asthma and has been attributing it to that) and a intermittently productive cough. Denies chest pain, palpitations, hemopytsis, or dizziness. Workup was significant for bilateral PEs. Hx of PE/DVT within the last 5 years. Denies any recent surgeries, immobility, and has no active/previous hx of cancer. Initial VS at presentation: 98? F, HR 109, R 18, 154/103, and 97% on RA. ED workup showed: No leukocytosis, no anemia, INR 0.9, no significant electrolyte derangements, creatinine 1.02 and normal GFR. US of the LLE showed an extensive left sided DVT (done outpatient on 08/13). CTA chest showed bilateral pulmonary emboli, moderate thrombus burden. Pt is seen and examined. He reports left leg is a lot better, skin is warm and no pain,tingling. 08/15- therapeutic INR on heparin, so it stopped and eliquis started. Lt leg swelling is almost completely gone. Awaiting Dr Dunbar consult. Will need a close f/u for nely ferming. work up. Status at Discharge Functional status at discharge: independent ambulation Overall status at discharge: patient is progressing back to baseline Time Spent with Patient Time attestation: Total time spent providing and/or coordinating discharge services: Time spent: Greater than 30 minutes Exam Const: General: comfortable Resp: Effort & Inspection: normal respiratory effort Auscultation: clear to auscultation bilaterally Cardio: Rate: regular rate Rhythm: regular rhythm GI: GI Palp: Yes Soft to palpation DS: Data Data Completed and Pending Labs on day of discharge: Labs from last 24 hours 08/15/25 08/15/25 08/14/25 09:49 04:03 20:59 APTT 83.5 H 104.9 H 57.4 H Discharge Plan Discharge Attending physician on discharge: Harpreet Nagy Consulting providers: Dangelo Dunbar Discharging Clinician: Faith Chowdary Patient Disposition: Home Activity: may shower Diet: heart healthy Discharge Instructions: Please take eliquis as prescribed. You will nee dot f/u with DR Dunbar as directed by him. Please be careful with position change- Patient Instructions: Antibiotic Form Patient Language: Bermudian Stand Alone Forms: General Discharge Information Follow-up/Referrals: Dangelo Dunbar MD [Physician, Hematology] - 2 Weeks Adolfo Fallon MD [Primary Care Provider, Internal Medicine] - 2 Weeks Discharge Medications: New Eliquis 5 mg Tablet 10 mg PO Q12HR Qty: 14 0RF Rx Instructions: take 10 mg twice a day for a week, then 5 mg twice a day Eliquis 5 mg Tablet 5 mg PO Q12HR Qty: 90 0RF Continued metoprolol succinate 100 mg tablet extended release 24 hr 100 mg PO QPM nitroglycerin 0.4 mg tablet, sublingual 0.4 mg sublingual DAILY PRN (Reason: Chest Pain) cholecalciferol (vitamin D3) 25 mcg (1,000 unit) capsule 25 mcg PO DAILY fluticasone propionate 50 mcg/actuation spray,suspension 1 spray INTRANASAL Q12H budesonide-formoterol 160-4.5 mcg/actuation HFA aerosol inhaler 2 puff inhalation Q12H pantoprazole 40 mg tablet,delayed release (DR/EC) See Rx Instructions .ROUTE .COMPLEX Qty: 90 2RF Dose Instruction: TAKE 1 TABLET BY MOUTH EVERY MORNING Rx Instructions: TAKE 1 TABLET BY MOUTH EVERY MORNING albuterol sulfate 90 mcg/actuation HFA aerosol inhaler See Rx Instructions .ROUTE .COMPLEX Qty: 25.5 3RF Dose Instruction: INHALE 1 PUFF BY MOUTH EVERY 4 HOURS NEEDED FOR SHORTNESS OF BREATH OR WHEEZING Rx Instructions: INHALE 1 PUFF BY MOUTH EVERY 4 HOURS NEEDED FOR SHORTNESS OF BREATH OR WHEEZING Humira Pen 40 mg/0.8 mL pen injector kit See Rx Instructions .ROUTE .COMPLEX Qty: 6 4RF Dose Instruction: INJECT 40 MG SUBCUTANEOUSLY EVERY 14 DAYS FOR 3 MONTHS Rx Instructions: INJECT 40 MG SUBCUTANEOUSLY EVERY 14 DAYS FOR 3 MONTHS prednisone 5 mg tablet 5 mg PO DAILY 30 Days Qty: 30 11RF Date of admission: 08/13/25 18:17 Primary Care Provider: Adolfo Fallon Admitting Provider: Karlos Baker Attending physician on admission: Karlos Baker Condition: Stable Hospitalist MIPS Heart Failure (Exclusion) Patient has history of Heart Transplant or Left Ventricular Assistive Device?: No IF YES, STOP HERE Heart Failure (Qualifier) Patient has current or prior documentation of LVEF less than or equal to 40%, or mod/servere depressed LVSF?: No IF NO, STOP HERE
--- NOTE | 2025-08-15 17:34 | WPDONCCN ---
Assessment and Plan Assessment and plan (1) Pulmonary embolism: Qualifiers: Acute cor pulmonale presence: without acute cor pulmonale Chronicity: acute Pulmonary embolism type: unspecified Qualified Code(s): I26.99 - Other pulmonary embolism without acute cor pulmonale Code(s): I26.99 - Other pulmonary embolism without acute cor pulmonale Status: Acute Assessment and Plan: Patient is the 75-year-old obese male with previous history of DVT and PE diagnosed 3 years ago which was also unprovoked along with history of ulcerative colitis, non STEMI and TIA came into the hospital with 5 day history of the left lower extremity swelling. He denies any provoking factors like injury and surgery. He was not on any anticoagulation therapy. Doppler study showed extensive DVT of the left lower extremity with CTA chest showed bilateral pulmonary embolism with moderate thrombus burden. Patient was started on heparin drip with improvement in the swelling. Would suggest him discharging home on Eliquis 10 mg twice a day for 1 week then 5 mg twice a day. He will follow-up in the office for further management including hypercoagulable workup. He may need to be on long-term anticoagulation due to recurrent unprovoked thromboembolic events. I have answered all the questions to patient's satisfaction. (2) DVT (deep venous thrombosis): Qualifiers: Affected thrombotic vein of extremity: unspecified lower extremity distal vein Chronicity: unspecified DVT location: lower extremity Laterality: left Qualified Code(s): I82.4Z2 - Acute embolism and thrombosis of unspecified deep veins of left distal lower extremity Code(s): I82.409 - Acute embolism and thrombosis of unspecified deep veins of unspecified lower extremity Status: Acute HPI Data of Consult Date/Time: 08/15/25 17:34 Requesting Physician: Karlos Baker MD Primary Care Provider: Adolfo Fallon MD Consult Narrative Narrative: Arvind Pruett is a 75 year old male with previous history of DVT and PE diagnosed 3 years ago for which he was treated for short term of anticoagulation along with history of ulcerative colitis call in a asthma, non STEMI and anemia came into the hospital with 5 day history of swelling of the left lower extremity. He denies any injury trauma and surgery. He has been not very active since he retired 13 years ago and has gained almost 40 lb weight. There is no family history of thromboembolic events. Patient also ulcerative colitis is under control with Humira. He denies any melena and hematochezia. Doppler study showed extensive DVT in the left lower extremity. CTA chest showed bilateral pulmonary embolism with moderate thrombus burden. Denies any other complaints Review of Systems Review of Systems: Twelve point review of system was reviewed [facility] Past Medical History Medical History Obese Hx of adenomatous colonic polyps Colon dysplasia Vitamin D deficiency Oral thrush Microcytic hypochromic anemia C. difficile colitis High risk medication use Need for hepatitis B screening test GERD (gastroesophageal reflux disease) CAD (coronary artery disease) stent placed in Oct 2018 to the prox LAD Asthma Skin lesion of back Folliculitis Myocardial infarction HTN (hypertension) Hypercholesterolemia Kidney stones Ulcerative colitis TIA (transient ischemic attack) Surgical History Surgical History Hx of sinus surgery History of heart artery stent Family History Family History Mother Hypertension DVT (deep venous thrombosis) Father Hypertension Heart disease Social History Social History Social History: Lives alone. . No children. Denies alcohol or drug use. He is a lifelong nonsmoker. He is a full code. He nominated Batsheva Paz to be the individual would be making decisions for him if he is unable. Smoking status: Never smoker Alcohol intake: never Substance use: never Substance use type: does not use Lack of Transportation: No Lack of Food: Never True Current Housing: I Have Housing Concerned About Future Housing: No Difficulty Paying Gas/Electric Bills: No Difficulty Paying for Meds: No Currently Unemployed: No Education: Trade/Vocational Certificate Difficulty w/ Childcare or Family Care: No Living arrangements: alone Gender identity (if verbalized by the patient): Male Spiritual care concerns: No Meds Home Medications and Allergies Home Medications ?Medication ?Instructions ?Recorded ?Confirmed ?Type metoprolol succinate 100 mg 100 mg PO QPM 02/07/24 08/13/25 History tablet,extended release 24 hr nitroglycerin 0.4 mg sublingual 0.4 mg sublingual DAILY PRN Chest 02/07/24 08/13/25 History tablet Pain pantoprazole 40 mg tablet,delayed See Rx Instructions .Route 12/13/24 08/13/25 Rx release .COMPLEX #90 tabs albuterol sulfate 90 mcg/actuation See Rx Instructions .Route 03/25/25 08/13/25 Rx aerosol inhaler .COMPLEX #25.5 ea cholecalciferol (vitamin D3) 25 25 mcg PO DAILY 03/31/25 08/13/25 History mcg (1,000 unit) capsule adalimumab 40 mg/0.8 mL See Rx Instructions .Route 04/08/25 08/13/25 Rx subcutaneous pen kit (Humira Pen) .COMPLEX #6 ea prednisone 5 mg tablet 5 mg PO DAILY 1 month #30 tabs 06/03/25 08/13/25 Rx budesonide-formoterol HFA 160 2 puff inhalation Q12H 08/13/25 08/13/25 History mcg-4.5 mcg/actuation aerosol inhaler fluticasone propionate 50 1 spray intranasal Q12H 08/13/25 08/13/25 History mcg/actuation nasal spray,suspension apixaban 5 mg tablet (Eliquis) 5 mg PO Q12HR #90 tabs 08/15/25 Rx apixaban 5 mg tablet (Eliquis) 10 mg (2 x 5 mg) PO Q12HR #14 tabs 08/15/25 Rx Allergies Allergy/AdvReac Type Severity Reaction Status Date / Time Sulfa (Sulfonamide Allergy Mild Hives Verified 08/13/25 23:58 Antibiotics) azathioprine Allergy Unknown Unknown Verified 08/13/25 23:58 sulfanilamide Allergy Unknown Unknown Verified 08/13/25 23:58 Vital Signs Vital Signs - 24 hr 08/14/25 18:44 08/14/25 20:00 08/14/25 20:00 Temperature 37.1 C Pulse Rate 120 H 108 H Respiratory Rate 16 Blood Pressure 144/91 H Pulse Oximetry 98 Oxygen Delivery Room Air Oxygen Flow Rate 08/14/25 20:00 08/15/25 00:00 08/15/25 00:00 Temperature 36.6 C Pulse Rate 108 H 86 83 Respiratory Rate 16 Blood Pressure 135/79 Pulse Oximetry 97 Oxygen Delivery Oxygen Flow Rate 08/15/25 04:00 08/15/25 04:00 08/15/25 08:00 Temperature 36.4 C Pulse Rate 87 78 94 Respiratory Rate 20 Blood Pressure 136/83 Pulse Oximetry 97 Oxygen Delivery Oxygen Flow Rate 08/15/25 08:00 08/15/25 09:00 08/15/25 12:00 Temperature 36.5 C 36.8 C Pulse Rate 80 86 Respiratory Rate 20 18 Blood Pressure 141/92 H 157/91 H Pulse Oximetry 97 96 97 Oxygen Delivery Nasal Cannula Oxygen Flow Rate 1 08/15/25 12:00 08/15/25 15:25 08/15/25 16:00 Temperature 36.7 C Pulse Rate 87 91 98 Respiratory Rate 16 Blood Pressure 142/84 H Pulse Oximetry 96 Oxygen Delivery Oxygen Flow Rate Exam Narrative: Lungs are clear to auscultation bilaterally Cardiovascular regular rate rhythm no murmurs Abdomen soft nontender nondistended Extremities showed some edema in the right lower extremity Results Labs 08/14/25 01:19 08/14/25 01:19
== END 2025-08-15 18:30 | disposition home or self-care (01) | DRG 176 ==
LOC: ANHED 18:13 → ANH3MEDSUR 18:55 → ANH2MED 19:54
PROVIDERS: Internal Medicine; Student in an Organized Health Care Education/Training Program; Admitting Provider General Practice; Emergency Provider Family Medicine; PCP Emergency Medicine; Visit Provider Nurse Practitioner
DX: I26.94 Multiple subsegmental thrombotic pulmonary emboli without acute cor pulmonale (principal); K51.90 Ulcerative colitis, unspecified, without complications; I82.4Z2 Acute embolism and thrombosis of unspecified deep veins of left distal lower extremity; I26.99 Other pulmonary embolism without acute cor pulmonale; D64.9 Anemia, unspecified; E55.9 Vitamin D deficiency, unspecified; I10 Essential (primary) hypertension; I25.2 Old myocardial infarction; I25.10 Atherosclerotic heart disease of native coronary artery without angina pectoris; J45.909 Unspecified asthma, uncomplicated; K21.9 Gastro-esophageal reflux disease without esophagitis; Z86.711 Personal history of pulmonary embolism; Z86.718 Personal history of other venous thrombosis and embolism; Z86.73 Personal history of transient ischemic attack (TIA), and cerebral infarction without residual deficits; Z95.5 Presence of coronary angioplasty implant and graft
CPT/HCPCS: 36415; 71275; 80048; 80053; 84484; 85025; 85610; 85730; 93005; 93306; 94640; 99285; A9270; J0360; J1644; J7512; Q9967

== ENCOUNTER 2025-08-20 07:06 | Outpatient (CLI) | payer MEDICARE, SELFPAY ==
--- OUTSIDE RECORDS SUMMARY | 2025-08-20 07:09 | XMS_ITS | Encounter Summary ---
Author Organization [facility] Address [address] [facility] [address] [place] [address] Care Team Providers Care Wood Shingle Roofer Name Role Phone Adolfo Fallon MD Primary Care Provide r Encounter Details Date Type Department Care Team (Late st Contact Info) Description 04/12/2017 Orders Only [facility] ProviderKristy MD [address] [place] [address] Social History Tobacco Use Types Packs/Day Years Used Date Smoking Tobacco: Never Alcohol Use Standard Drinks/Week Comments No 0 (1 standard drink = 0.6 oz pur e alcohol) Sex and Gender Information Value Date Recorded Sex Assigned at Not on file 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
--- OUTSIDE RECORDS SUMMARY | 2025-08-20 07:09 | XMS_ITS | Clinical Summary ---
Author Organization [facility] [address] Address [address] [place] [address] Care Team Providers Care Marketing Systems Analyst Name Role Phone Adolfo Fallon MD Primary [...] the morning and evening 0 Inhaler 0 04/12/20 17 Active albuterol HFA (PROVENTIL HFA) 90 mcg/actuation inhaler inhale 2 puff by inhalation route every 4 - 6 hours as needed 0 Inhaler 0 04/12/20 17 Active fluticasone propionate (FLONASE) 50 mcg/actuation nasal spray SPRAY 1 SPRAY IN EACH NOSTRIL ONCE DAILY 11/11/20 19 Active cholecalcifero l (VITAMIN D-3) 3,000 unit tablet Take 0.3333 tablets (1,000 Units total) by mouth daily Active predniSONE (DELTASONE) 5 mg tablet daily 03/30/20 21 Active [employer] misc 09/23/[address] (PROTONIX) 40 mg EC tablet 10/13/20 21 Active aspirin 81 mg enteric coated tabletIndicati ons:Coronary artery disease involving [place] coronary artery of [place] heart without angina pectoris Take 1 tablet (81 mg total) by mouth daily 30 tablet 11 03/30/20 22 Active nitroglycerin (NITROSTAT) 0.4 mg SL tabletIndicati ons:Coronary artery disease involving [place] coronary artery of [place] heart without angina pectoris Place 1 tablet (0.4 mg total) under the tongue every 5 (five) minutes as needed for chest pain 25 tablet 3 10/09/20 23 Active Humira Pen 40 mg/0.8 mL pen injector kit Inject 0.8 mL (40 mg total) under the skin every 14 (fourteen) days 03/05/20 25 Active metoprolol XL (TOPROL-XL) 100 mg 24 hr tabletIndicati ons:Coronary artery disease involving [place] coronary artery of [place] heart without angina pectoris,Non-S T elevation (NSTEMI) myocardial infarction (HCC) TAKE 1 TABLET BY MOUTH EVERY DAY 90 tablet 2 08/19/20 25 Active metoprolol XL (TOPROL-XL) 100 mg 24 hr tabletIndicati ons:Coronary artery disease involving [place] coronary artery of [place] heart without angina pectoris,Non-S T elevation (NSTEMI) myocardial infarction (HCC) TAKE 1 TABLET BY MOUTH EVERY DAY 90 tablet 2 12/13/19 25 025 Discontinued Active Problems Problem Noted Date Diagnosed Date Right leg pain 04/10/2023 Class 2 severe obesity with serious comorbidity in adult 04/10/2023 History of pulmonary embolism 03/30/2022 History of COVID-19 09/29/2021 H/O: GI bleed 10/30/2019 H/O cardiomyopathy 10/30/2019 Chronic fatigue 10/30/2019 Asthma 04/04/2019 S/P drug eluting coronary stent placement 2018 Coronary artery disease invo lving [place] coronary artery of [place] heart without angina pectoris 12/19/2018 Mixed hyperlipidemia [...] on file 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
[2025-08-20 07:44] LABS: Alanine Aminotransferase 38 U/L (6-50); Albumin Level 3.9 g/dL (3.5-5.1); Alkaline Phosphatase 73 U/L (38-126); Anion Gap 6 mmol/L (4-12); Aspartate Amino Transferase 29 U/L (17-59); Bilirubin,Total 0.8 mg/dL (0.2-1.3); Blood Urea Nitrogen 16 mg/dL (9-20); Calcium 8.8 mg/dL (8.4-10.2); Carbon Dioxide 24 mmol/L (22-30); Chloride 105 mmol/L (98-107); Cholesterol 211 mg/dL (0-200); Estimated Glomerular Filt Rate > 60; Glucose 103 mg/dL (65-110); HDL Direct 42 mg/dL; Potassium 4.2 mmol/L (3.4-5.0); Sodium 135 mmol/L (137-145); Total Protein 7.3 g/dL (6.3-8.2); Triglycerides 91 mg/dL (<150)
[2025-08-20 08:19] LABS: Thyroid Stimulating Hormone 3.070 uIU/mL (0.465-4.680)
== END 2025-08-20 07:07 | disposition home or self-care (01) ==
LOC: ANHLAB 07:07
PROVIDERS: PCP Emergency Medicine; Visit Provider Emergency Medicine
DX: E78.5 Hyperlipidemia, unspecified (principal); E55.9 Vitamin D deficiency, unspecified; R53.83 Other fatigue
CPT/HCPCS: 36415; 80053; 80061; 82306; 84443

== ENCOUNTER 2025-09-06 07:20 | Outpatient (CLI) | payer MEDICARE, SELFPAY ==
--- OUTSIDE RECORDS SUMMARY | 2025-09-06 07:23 | XMS_ITS | Clinical Summary ---
Author Organization [facility] Marylu sal Marivella Address [address] [place] [address] Care Team Providers Care Supervisor Molding Name Role Phone Adolfo Fallon MD Primary Care Provider [phone] Social History Tobacco Use Types Packs/Day Years Used Date Smoking Tobacco: Never Assessed Sex and Gender Information Value Date Recorded Sex Assigned at Not on file Legal Sex Male 1:29 PM CDT Gender Identity Not on file Sexual Orientation Not on file Plan of Treatment Upcoming Encounters Date Type Department Care Team (Late st Contact Info) Description 09/15/2025 3:00 PM CDT Office Visit [facility] Oncology and Hematology - [place] [address] [place] [address] Dangelo Dunbar MD [address] [facility] [address] [place] [address] Health Maintenance Due Date Last Done Comments DTAP/TDAP/TD VACCINES (1 - Tdap) 1967 PNEUMOCOCCAL VACCINE 50+ YEARS (1 of 1 - PCV) 03/23/19 98 ZOSTER VACCINE (1 of 2) 1998 RSV VACCINE (60+ or ) (1 - 1-dose 75+ series) 2023 INFLUENZA VACCINE (#1) 2025 Care Teams Supervisor Molding Relationship Specialty Start Date End Date Adolfo Fallon MD [address] [place] [address] PCP - General Internal Medicine 08/21/25
--- OUTSIDE RECORDS SUMMARY | 2025-09-06 07:23 | XMS_ITS | Encounter Summary ---
Author Organization [facility] Address [address] [facility] [address] [place] [address] Care Team Providers Care Performing Arts Road Manager Name Role Phone Adolfo Fallon MD Primary Care Provide r Encounter Details Date Type Department Care Team (Late st Contact Info) Description 04/12/2017 Orders Only [facility] ProviderKristy MD [address] [place] [address] Social History Tobacco Use Types Packs/Day Years Used Date Smoking Tobacco: Never Alcohol Use Standard Drinks/Week Comments No 0 (1 standard drink = 0.6 oz pur e alcohol) Sex and Gender Information Value Date Recorded Sex Assigned at Not on file 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
--- OUTSIDE RECORDS SUMMARY | 2025-09-06 07:24 | XMS_ITS | Clinical Summary ---
Author Organization [facility] [address] Address [address] [place] [address] Care Team Providers Care Reacher Name Role Phone Adolfo Fallon MD Primary [...] enteric coated tabletIndicati ons:Coronary artery disease involving [place] coronary artery of [place] heart without angina pectoris Take 1 tablet (81 mg total) by mouth daily 30 tablet 11 03/30/20 22 Active nitroglycerin (NITROSTAT) 0.4 mg SL tabletIndicati ons:Coronary artery disease involving [place] coronary artery of [place] heart without angina pectoris Place 1 tablet [...] 24 hr tabletIndicati ons:Coronary artery disease involving [place] coronary artery of [place] heart without angina pectoris,Non-S T elevation (NSTEMI) myocardial infarction (HCC) TAKE 1 TABLET BY MOUTH EVERY DAY 90 tablet 2 08/19/20 25 Active metoprolol XL (TOPROL-XL) 100 mg 24 hr tabletIndicati ons:Coronary artery disease involving [place] coronary artery of [place] heart without angina pectoris,Non-S T elevation (NSTEMI) [...] placement 2018 Coronary artery disease invo lving [place] coronary artery of [place] heart without angina pectoris 12/19/2018 Mixed hyperlipidemia [...] Encounters Date Type Department Care Team Description 09/05/2025 Telephone [facility] Cardiology [address] [place] [address] Mandi Medina NP from Last 3 Months Medical History Medical [...] on file 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
[2025-09-10 23:07] LABS: Calprotectin, Fecal 111 ug/g (0-120)
== END 2025-09-06 07:21 | disposition home or self-care (01) ==
LOC: ANHLAB 07:22
PROVIDERS: PCP Emergency Medicine; Visit Provider Nurse Practitioner Family
DX: K51.919 Ulcerative colitis, unspecified with unspecified complications (principal); I82.4Z1 Acute embolism and thrombosis of unspecified deep veins of right distal lower extremity; R60.0 Localized edema
CPT/HCPCS: 83993

== ENCOUNTER 2025-11-17 13:12 | Outpatient (CLI) | payer MEDICARE, SELFPAY ==
--- NOTE | ~2025-11-17 | US_ITS ---
LEFT LOWER EXTREMITY VENOUS DUPLEX Clinical History: ACUTE DVT OF POPLITEAL VEIN OF LE COMPARISON: 08/13/2025 TECHNIQUE: Grayscale, color, duplex/spectral Doppler sonography left leg FINDINGS: Left leg common femoral, femoral, popliteal, and calf veins compressible and color Doppler patent. Normal augmentation with distal compression. No internal echoes. IMPRESSION: 1. No left leg DVT identified. Previous DVT resolved. Reviewed, dictated and finalized at location R. ING UNIT OPERATOR CRIMPING
--- OUTSIDE RECORDS SUMMARY | 2025-11-17 13:42 | XMS_ITS | Clinical Summary ---
Author Organization [facility] Marylu sal Anuradha Address [address] [place] [address] Care Team Providers Care Studio Hand Name Role Phone Adolfo Fallon MD Primary Care Provider + [phone] Allergies No known active allergies Medications metoprolol succinate (TOPROL XL) 100 mg Extended Release 24 hour tablet Take 100 mg by mouth daily. 5 Active nitroglycerin (NITROSTAT) 0.4 mg Tablet, Sublingual Place 0.4 mg under tongue every 5 minutes as needed for Chest Pain. 3 Active pantoprazole (PROTONIX) 40 mg Tablet, Delayed Release (E.C.) Take 40 mg by mouth daily in the morning. 5 Active albuterol sulfate HFA 90 mcg/actuation aerosol inhaler INHALE 1 PUFF BY MOUTH EVERY 4 HOURS NEEDED FOR SHORTNESS OF BREATH OR WHEEZING 5 Active Cholecalcifero l, Vitamin D3, 75 mcg (3,000 unit) Tablet Take 1,000 Units by mouth daily. Active Humira Pen 40 mg/0.8 mL Pen Injector Kit INJECT 40 MG SUBCUTANEOUSLY EVERY 14 DAYS FOR 3 MONTHS Active predniSONE (DELTASONE) 5 mg tablet Take 1 Tablet by mouth daily. 5 Active fluticasone propionate (FLONASE) 50 mcg/spray [place], Suspension nasal inhaler spray 1 spray into each nostril every day 5 Active budesonide-for moteroL (SYMBICORT) 160-4.5 mcg/actuation HFA Aerosol Inhaler Take 1 Puff by inhalation daily. 5 Active Eliquis 5 mg tablet Take 1 Tablet (5 mg) by mouth 2 times daily. 60 Tablet 2 Active Active Problems No known active problems Encounters Date Type Department Care Team Description 10/21/2025 External Device Data STL ABSTRACTION Provider, Abstract 10/21/2025 External Device Data STL ABSTRACTION Provider, Abstract 09/16/2025 External Device Data STL ABSTRACTION Provider, Abstract 09/16/2025 External Device Data STL ABSTRACTION Provider, Abstract 09/16/2025 External Device Data STL ABSTRACTION Provider, Abstract 09/15/2025 3:00 PM CDT Office Visit [facility] Oncology and Hematology - [place] [address] [place] [address] Dangelo Dunbar MD Acute deep vein thrombosis (DVT) of popliteal vein of left lower extremity (CMS/HCC) (Primary Dx) from Last 3 Months Family History Medical History Relation Name Comments No Known Problems Brother Heart Disease Father Heart Disease Mother No Known Problems Sister Relation Name Status Comments Brother Alive Father Mother Sister Alive Social History Tobacco Use Types Packs/Day Years Used Date Smoking Tobacco: Never Smokeless Tobacco: Never Alcohol Use Standard Drinks/Week Comments Never 0 (1 standard drink = 0.6 oz pur e alcohol) Sex and Gender Information Value Date Recorded Sex Assigned at Not on file Legal Sex Male 1:29 PM CDT Gender Identity Not on file Sexual Orientation Not on file Last Filed Vital Signs Vital Sign Reading Time Taken Comments Blood Pressure 160/96 09/15/2025 2:47 PM CDT man ual Pulse 95 09/15/2025 2:43 PM CDT Temperature 36.4 C (97.5 F) 09/15/2025 2:43 PM CDT Respiratory Rate 18 09/15/2025 2:43 PM CDT Oxygen Saturation 95% 09/15/2025 2:43 PM CDT Inhaled Oxygen Concentration - - Weight 96.9 kg (213 lb 9.6 oz) 09/15/2025 2:43 P M CDT Height 162.6 cm (5' 4) 09/15/2025 2:43 PM CDT Body Mass Index 36.66 09/15/2025 2:43 PM CDT Plan of Treatment Upcoming Encounters Date Type Department Care Team (Late st Contact Info) Description 11/24/2025 2:30 PM AUTO MACHINIST Office Visit [facility] Oncology and Hematology - [place] [address] [place] [address] Dangelo Dunbar MD [address] [facility] [address] [place] [address] Health Maintenance Due Date Last Done Comments DTAP/TDAP/TD VACCINES (1 - Tdap) 1967 PNEUMOCOCCAL VACCINE 50+ YEARS (1 of 2 - PCV) 03/23/19 67 ZOSTER VACCINE (1 of 2) 1998 RSV VACCINE (60+ or ) (1 - 1-dose 75+ series) 2023 Medicare Advantage (MS) Prev entative Visit/Annual Wellness Visit 11/20/2024 INFLUENZA VACCINE (#1) 2025 Insurance AETNA PPO MCR Care Teams Studio Hand Relationship Specialty Start Date End Date Adolfo Fallon MD [address] [place] [address] PCP - General Internal Medicine 08/21/25
--- OUTSIDE RECORDS SUMMARY | 2025-11-17 13:42 | XMS_ITS | Encounter Summary ---
Author Organization [facility] Address [address] [facility] [address] [place] [address] Care Team Providers Care Technical Services Specialist Name Role Phone Adolfo Fallon MD Primary Care Provide r Encounter Details Date Type Department Care Team (Late st Contact Info) Description 04/12/2017 Orders Only [facility] ProviderKristy MD [address] [place] [address] Social History Tobacco Use Types Packs/Day Years Used Date Smoking Tobacco: Never Alcohol Use Standard Drinks/Week Comments No 0 (1 standard drink = 0.6 oz pur e alcohol) Sex and Gender Information Value Date Recorded Sex Assigned at Not on file 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
--- OUTSIDE RECORDS SUMMARY | 2025-11-17 13:42 | XMS_ITS | Clinical Summary ---
Author Organization [facility] [address] Address [address] [place] [address] Care Team Providers Care Fisher Diver Net Name Role Phone Adolfo Fallon MD Primary Care Provide r Allergies Active Allergy Reactions Criticality Noted Date Comments Amlodipine Rash Medium 09/21/2020 Atorvastatin Nausea only,Vomiting Medium Reaction: nausea, vomiting, Rosuvastatin Nausea only Low 08/15/2023 Sulfa (Sulfonamide Antibiotics) Other (See comments) High Reaction: unknown, Medications budesonide-formot rocío (SYMBICORT) 160-4.5 mcg/actuation inhaler inhale 2 puff [...] 1 Active aspirin 81 mg enteric coated tabletIndications :Coronary artery disease involving [place] coronary artery of [place] heart without angina pectoris Take 1 tablet (81 mg total) by mouth daily 30 tablet 11 2 Active nitroglycerin (NITROSTAT) 0.4 mg SL tabletIndications :Coronary artery disease involving [place] coronary artery of [place] heart without angina pectoris Place 1 tablet (0.4 mg total) under the tongue every 5 (five) minutes as needed for chest pain 25 tablet 3 3 Active Humira Pen 40 mg/0.8 mL pen injector kit Inject 0.8 mL (40 mg total) under the skin every 14 (fourteen) days 5 Active metoprolol XL (TOPROL-XL) 100 mg 24 hr tabletIndications :Coronary artery disease involving [place] coronary artery of [place] heart without angina pectoris,Non-ST elevation (NSTEMI) myocardial infarction (HCC) TAKE 1 TABLET BY MOUTH EVERY DAY 90 tablet 2 5 Active Eliquis 5 mg tablet Take 1 tablet (5 mg total) by mouth 2 (two) times a day 5 Active spironolactone (ALDACTONE) 25 mg tabletIndications :Essential hypertension Take 1 tablet (25 mg total) by mouth every morning 30 tablet 5 5 Active Active Problems Problem Noted Date Diagnosed Date Right leg pain 04/10/2023 Class 2 severe obesity with serious comorbidity in adult 04/10/2023 History of pulmonary embolism 03/30/2022 History of COVID-19 09/29/2021 H/O: GI bleed 10/30/2019 H/O cardiomyopathy 10/30/2019 Chronic fatigue 10/30/2019 Asthma 04/04/2019 S/P drug eluting coronary stent placement 2018 Coronary artery disease invo lving [place] coronary artery of [place] heart without angina pectoris 12/19/2018 Mixed hyperlipidemia [...] Encounters Date Type Department Care Team Description 09/23/2025 Telephone [facility] Cardiology [address] [place] [address] Mandi Medina NP Medication Reaction 09/16/2025 2:00 PM CDT Office Visit [facility] Cardiology [address] [facility] [address] [place] [address] Mandi Medina NP Coronary artery disease involving [place] coronary artery of [place] heart without angina pectoris; Statin intolerance; H/O cardiomyopathy; Essential hypertension; Pulmonary embolism without acute cor pulmonale, unspecified chronicity, unspecified pulmonary embolism type (HCC); Deep vein thrombosis (DVT) of proximal vein of left lower extremity, unspecified chronicity (HCC) 09/05/2025 Telephone [facility] Cardiology [address] [place] [address] Mandi Medina NP from Last 3 [...] on file 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 Gender Identity Not on file Sexual Orientation Not on file Last Filed Vital Signs Vital Sign Reading Time Taken Comments Blood Pressure 148/88 09/16/2025 2:02 PM CDT Pulse 99 09/16/2025 2:02 PM CDT Temperature - - Respiratory Rate - - Oxygen Saturation 97% 09/16/2025 2:02 PM CDT Inhaled Oxygen Concentration - - Weight 97.9 kg (215 lb 13.6 oz) 09/16/2025 2:02 PM CDT Height 162.6 cm (5' 4) 09/16/2025 2:02 PM CDT Body Mass Index 37.05 09/16/2025 2:02 PM CDT Plan of Treatment Health Maintenance Due Date Last Done Comments Depression Screening 1948 Fall Risk Assessment 1950 Hepatitis C Screening 1950 DTaP/Tdap/Td Vaccine (1 - Tdap) 1959 Hepatitis B Screening 1966 Pneumococcal vaccine 65+ (1 of 2 - PCV) 1967 Zoster Vaccine (1 of 2) 1998 Well Visit 65+ 2013 Influenza Vaccine (#1) 2025 Insurance AETNA MEDICARE AETNA MEDICARE Care Teams Fisher Diver Net Relationship Specialty Start Date End Date Adolfo Fallon MD [address] [place] [address] PCP - General 02/28/17
--- OUTSIDE RECORDS SUMMARY | 2025-11-17 13:42 | XMS_ITS | Encounter Summary ---
Author Organization [facility] Address [address] [place] [address] Care Team Providers Care Wireless Network Engineer Name Role Phone Adolfo Fallon MD Primary Care Provide r Encounter Details Date Type Department Care Team (Late st Contact Info) Description 08/13/2025 Orders Only [facility] [address] [place] [address] Paco Galdamez MD [address] [facility] [address] [address] Social History Tobacco Use Types Packs/Day Years Used Date Smoking Tobacco: Never Smokeless Tobacco: Never Alcohol Use Standard Drinks/Week Comments No 0 (1 standard drink = 0.6 oz pur e alcohol) Sex and Gender Information Value Date Recorded Sex Assigned at Not on file 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 Gender Identity Not on file Sexual Orientation Not on file documented as of this encounter Plan of Treatment Not on file documented as of this encounter Procedures Procedure Name Priority Date/Time Associated Diagnosis Comments SCAN - RADIOLOGY/IMAGING 08/13/2025 documented in this encounter Results * SCAN - RADIOLOGY/IMAGING (08/13/2025) Anatomical Region Laterality Modality Other Paco Galdamez MD Final Result documented in this encounter Visit Diagnoses Not on filedocumented in this encounter Care Teams Wireless Network Engineer Relationship Specialty Start Date End Date Adolfo Fallon MD [address] [place] [address] PCP - General 02/28/17 documented as of this encounter
== END 2025-11-17 13:13 | disposition home or self-care (01) ==
LOC: ANHIMG 13:28
PROVIDERS: PCP Emergency Medicine; Visit Provider Internal Medicine Hematology & Oncology
DX: I82.432 Acute embolism and thrombosis of left popliteal vein (principal)
CPT/HCPCS: 93971